=== PATIENT | female | born 1940 | race Caucasian/White ===

== ENCOUNTER 2016-09-29 03:06 | Inpatient (IN) ==
--- NOTE | 2016-09-24 11:16 | EKG Report ---
Test Performed on : 09/24/2016 11:08:16 AM Test Reason : ORDER Blood Pressure : / mmHG Vent. Rate : 070 BPM Atrial Rate : 070 BPM P-R Int : 186 ms QRS Dur : 098 ms QT Int : 400 ms P-R-T Axes : 025 021 030 degrees QTc Int : 432 ms Normal sinus rhythm. Normal ECG No previous ECGs available Confirmed by Jae Honeycutt MD ([id number]) on 09/24/2016 2:56:47 PM
[2016-09-24 11:48] LABS: MANUAL DIFF NEEDED? NO; URINE MICRO REVIEW NEEDED? NO; URINE SOURCE CLEAN CATCH
[2016-09-24 12:02] LABS: BASO% 0.1 % (0.0-0.8); EOS# 0.07 X1000 (0.0-0.7); HEMATOCRIT 39.5 % (37.0-47.0); HEMOGLOBIN 13.5 g/dL (12.0-16.0); IMM GRAN# 0.02 X1000 (0.0-0.04); IMM GRAN% 0.3 % (0.0-0.5); LYMPH# 2.69 X1000 (1.2-3.4); LYMPH% 40.2 % (20.5-51.1); MCHC 34.2 g/dL (33-37); MCV 102.3 FL (81-99); MPV 11.9 FL (7.4-10.4); NEUT% 52.4 % (42.2-75.2); PLT 175 X1000 (130-400); RBC 3.86 XMIL (4.2-5.4)
[2016-09-24 12:18] LABS: INR 1.03; PROTIME 10.8 Seconds (9.2-11.7); PTT 27.1 Seconds (22.0-36.0)
[2016-09-24 12:23] LABS: BILIRUBIN URINE NEGATIVE (NEGATIVE); BLOOD URINE NEGATIVE (NEGATIVE); COLOR YELLOW; GLUCOSE URINE NEGATIVE (NEGATIVE); LEUKOCYTES URINE SMALL (NEGATIVE); NITRITE URINE NEGATIVE (NEGATIVE); PH URINE 5.5; PROTEIN URINE TRACE mg/dL (NEGATIVE); SP GRAVITY URINE 1.022; TURBIDITY URINE CLEAR (CLEAR); UROBILINOGEN URINE NORMAL (NORMAL)
[2016-09-24 12:25] LABS: UR EPITHELIAL CELLS <10 /HPF (<10); URINE BACTERIA 2+ /HPF; URINE RBC <10 /HPF (<10)
[2016-09-24 12:45] LABS: AGAP 13; BUN 12 mg/dL (8-22); CALCIUM 9.6 mg/dL (8.8-10.2); CHLORIDE 104 mmol/L (98-107); COSMO 291; POTASSIUM 3.6 mmol/L (3.5-5.1); SODIUM 145 mmol/L (136-145); TCO2 28 mmol/L (25-35)
[2016-09-29] MEDS ORDERED: PEPCID ONE (10:20)
[2016-09-29] MEDS ORDERED: COLACE ONE (10:20)
[2016-09-29] MEDS ORDERED: REGLAN ONE (10:20)
[2016-09-29] MEDS ORDERED: LYRICA ONE (10:20)
[2016-09-29] MEDS ORDERED: LR 1,000 ML ONE (10:20)
[2016-09-29] MEDS ORDERED: CELEBREX ONE (10:20)
[2016-09-29] MEDS ORDERED: KEFZOL 2 GM/D5W 2 GM/50 ML IVPB ONE (10:20)
[2016-09-29] MEDS ORDERED: DIPRIVAN 1% ONE ×2 (12:04→14:11)
[2016-09-29] MEDS ORDERED: FENTANYL ONE (12:04)
[2016-09-29] MEDS ORDERED: VERSED ONE (12:04)
[2016-09-29] MEDS ORDERED: VANCOMYCIN ONE (12:33)
[2016-09-29] MEDS ORDERED: TORADOL ONE (12:33)
[2016-09-29] MEDS ORDERED: SODIUM CHLORIDE 0.9% ONE (12:34)
[2016-09-29] MEDS ORDERED: MARCAINE 0.25% PF/EPI 1:200,000 ONE (12:34)
[2016-09-29] MEDS ORDERED: CYKLOKAPRON 1,000 MG/NS 1,000 MG/100 ML IVPB ONE ×2 (12:34→14:26)
[2016-09-29] MEDS ORDERED: NEOSPORIN G.U. IRRIGANT ONE (12:38)
[2016-09-29] MEDS ORDERED: EXPAREL 1.3% ONE (12:38)
[2016-09-29] MEDS ORDERED: EPHEDRINE ONE (13:07)
[2016-09-29] MEDS ORDERED: ZOFRAN ONE (13:14)
[2016-09-29] MEDS ORDERED: DECADRON ONE ×2 (13:14→13:18)
[2016-09-29] MEDS ORDERED: OFIRMEV 1000 MG/ISOTONIC SOLN 1,000 MG/100 ML BOTTLE ONE (13:14)
[2016-09-29 13:42] LABS: URINE MICRO REVIEW NEEDED? NO; URINE SOURCE CATH
[2016-09-29 15:26] LABS: BILIRUBIN URINE NEGATIVE (NEGATIVE); COLOR YELLOW; GLUCOSE URINE NEGATIVE (NEGATIVE); TURBIDITY URINE CLEAR (CLEAR)
[2016-09-29 15:27] LABS: BLOOD URINE NEGATIVE (NEGATIVE); PROTEIN URINE NEGATIVE (NEGATIVE); SP GRAVITY URINE > 1.030; UROBILINOGEN URINE NORMAL (NORMAL)
[2016-09-29 15:28] LABS: LEUKOCYTES URINE NEGATIVE (NEGATIVE); NITRITE URINE NEGATIVE (NEGATIVE)
[2016-09-29 15:31] LABS: UR EPITHELIAL CELLS <10 /HPF (<10); URINE BACTERIA 1+ /HPF; URINE RBC <10 /HPF (<10); URINE WBC <10 /HPF (<10)
--- NOTE | 2016-09-29 15:49 | OPERATIVE NOTE ---
PROCEDURE DATE: 09/29/2016 PREOPERATIVE DIAGNOSIS: Left knee degenerative joint disease. POSTOPERATIVE DIAGNOSIS: Left knee degenerative joint disease. PROCEDURE: Left total knee arthroplasty using [facility] size 7 femoral component, a size 6 tibial base plate, a 12 mm articular insert, and a 35 mm patellar component. ANESTHESIA: Spinal. SURGEON: Dhruv Muñiz MD CONTACT CENTER ASSISTANT: IAN Miner SECOND CONTACT CENTER ASSISTANT: Tabitha Hart PA-C COMPLICATIONS: None. BLOOD LOSS: Minimal. DRAINS: Hemovac x1. TOURNIQUET TIME: Approximately an hour half. DESCRIPTION OF PROCEDURE: The patient was brought to the operative suite and placed in supine position. After successful administration of general anesthesia, a well-padded tourniquet was placed on the left proximal thigh. The left lower extremity was prepped and draped in the usual sterile fashion. The leg was exsanguinated. Tourniquet insufflated to 350 torr. A longitudinal incision was made beginning at the superior pole of the patella and extended distally to the tibia tuberosity. It was dissected sharply through the skin. Full-thickness skin flaps were elevated medially and laterally. A medial arthrotomy was made with a vastus snip. The medial capsule was elevated off the medial tibial plateau. The prepatellar fat pad, ACL, PCL, medial meniscus, and lateral meniscus were excised. A drill was entered in the center of the distal femur. An intramedullary guide was placed, distal cutting block was pinned into place. The distal cut was made an oscillating saw. The femur was sized to size 7, a size 7 cutting block was pinned into place and the anterior cuts, chamfer cuts, and posterior condylar cuts were made with the oscillating saw. The marginal osteophytes were removed with rongeur. A box cutting block was pinned into place. A box cut was made a box osteotome and oscillating saw. Posterior condyle osteophytes removed with a curved osteotome and rongeur. Attention was then directed to the tibia. A drill was entered in the center of the tibia. An intramedullary guide was placed. Alignment was checked with a drop danya, referencing off the anterior cortex of the tibia and the second ray of the foot, and taking 4 mm off the low side of the tibia, which in this case, was medially. The tibial cutting block was pinned into place and the articular surface of the tibial plateau was removed with an oscillating saw. The flexion-extension gaps were checked and balanced at 12 mm. She was tight medially and a medial release was performed and then it was balanced well a 12 mm in flexion and extension. The tibia sized to size 6, a size 6 guide was used for the fin punch. The tibial trial, femoral trial, and 12 mm articular insert were placed, taken through range of motion found to have excellent alignment, balancing, and range of motion. Attention was directed to the patella and 9 mm of the articular surface of patella removed with oscillating saw. The patella sized to a size 35. A size 35 guide was used to drill peg holes. The lateral facet was chamfered 30-45 degrees. Patella trial was placed, taken through range of motion found to have excellent patella tracking. All trials were then removed. The knee was copiously irrigated and dried, being certain all bone debris was removed. The tibial component, femoral component, and patellar component were cemented into place, excess cement being removed with a [place]. Once the cement had hardened, excess cement was again removed with an osteotome. The knee was again copiously irrigated and dried, being certain all bone and cement debris were removed. The trial articular insert was removed. The knee was copiously infiltrated with Exparel, including posterior capsule, anterior capsule, medial and lateral collateral ligaments, anterior musculature, and subcutaneous tissue. A drain was placed exiting superior laterally and buried in the lateral gutter and then the definitive articular insert was locked into place. The knee was again taken through range of motion. Again, found to have excellent alignment, balancing, range of motion, and patellar tracking. The medial arthrotomy was closed with running 0 V-Loc suture. The skin edge approximated with 2-0 Vicryl and then 4-0 Monocryl and Dermabond. A sterile dressing was applied. The patient tolerated the procedure well without complication. At the end of the procedure, all counts correct x2. The patient was transferred to the recovery room in stable condition. cc: Dhruv Muñiz MD
[2016-09-29] MEDS ORDERED: NS 1,000 ML ONE (15:58)
[2016-09-29] MEDS: NS 1,000 ML IV SCH (17:11)
[2016-09-29] MEDS ORDERED: ZOFRAN IV PRN (17:30)
[2016-09-29] MEDS: TYLENOL PO SCH (18:38)
[2016-09-29] MEDS: ULTRAM PO SCH (18:38)
[2016-09-29] MEDS: PERIDEX MT SCH (22:03)
[2016-09-29] MEDS: LYRICA PO SCH (22:03)
[2016-09-29] MEDS: KEFZOL 2 GM/D5W 2 GM/50 ML IVPB IV SCH (22:03)
[2016-09-29] MEDS: COLACE PO SCH (22:04)
[2016-09-29] MEDS: CELEBREX PO SCH (22:04)
[2016-09-30] MEDS: ULTRAM PO SCH ×5 (00:45→23:34)
[2016-09-30] MEDS: TYLENOL PO SCH ×5 (00:45→23:34)
[2016-09-30] MEDS: KEFZOL 2 GM/D5W 2 GM/50 ML IVPB IV SCH (05:15)
[2016-09-30] MEDS: XARELTO PO SCH (05:16)
[2016-09-30] MEDS: NS 1,000 ML IV SCH (05:16)
[2016-09-30 06:14] LABS: HEMATOCRIT 32.1 % (37.0-47.0)
[2016-09-30 06:31] LABS: AGAP 11; BUN 9 mg/dL (8-22); CALCIUM 8.6 mg/dL (8.8-10.2); CHLORIDE 105 mmol/L (98-107); COSMO 283; SODIUM 141 mmol/L (136-145); TCO2 25 mmol/L (25-35)
[2016-09-30] MEDS ORDERED: DECADRON IV ONE (09:00)
--- NOTE | 2016-09-30 09:01 | PROGRESS NOTE ---
DATE: 09/30/2016 SUBJECTIVE: Ms. Pate is a 76-year-old female who is postoperative day 1 from a left total knee arthroplasty. She has no new complaints and her vital signs are stable. OBJECTIVE: General: She is a well-developed, well-nourished female. She is alert, oriented, and cooperative with the examination. Vital Signs: Stable. She is afebrile. Skin: Her dressing is clean, dry, and intact without sign of any drainage. Extremities: Her leg is neurovascularly intact. Her calf is soft. She has intact sensation to light touch. Laboratory Data: Her hemoglobin is 11 and her hematocrit is 32.1. She had 140 mL of drainage from her Hemovac. ASSESSMENT: Stable left total knee arthroplasty. PLAN: We plan on beginning physical therapy with her today. We will have her transferred to rehab later this week. Dictated by IAN Rivera for Dhruv Muñiz MD cc: IAN Rivera MD
[2016-09-30] MEDS: LYRICA PO SCH ×2 (09:54→21:55)
[2016-09-30] MEDS: PERIDEX MT SCH ×2 (09:54→21:55)
[2016-09-30] MEDS: CELEBREX PO SCH ×2 (09:54→21:55)
[2016-09-30] MEDS: PEPCID PO SCH (09:54)
[2016-09-30] MEDS: COLACE PO SCH ×2 (09:54→21:55)
[2016-09-30] MEDS: OXY IR PO PRN (21:56)
[2016-09-30] MEDS: AMBIEN PO PRN (21:56)
[2016-10-01] MEDS: TYLENOL PO SCH ×3 (05:11→17:28)
[2016-10-01] MEDS: XARELTO PO SCH (05:11)
[2016-10-01] MEDS: ULTRAM PO SCH ×3 (05:11→17:28)
[2016-10-01 06:25] LABS: HEMATOCRIT 23.8 % (37.0-47.0); HEMOGLOBIN 8.1 g/dL (12.0-16.0)
[2016-10-01] MEDS: COLACE PO SCH ×2 (08:27→21:38)
[2016-10-01] MEDS: CELEBREX PO SCH ×2 (08:27→21:38)
[2016-10-01] MEDS: PERIDEX MT SCH ×2 (08:27→21:43)
[2016-10-01] MEDS: LYRICA PO SCH ×2 (08:27→21:38)
[2016-10-01] MEDS: PEPCID PO SCH (08:27)
--- NOTE | 2016-10-01 10:15 | PROGRESS NOTE ---
DATE: 10/01/2016 SUBJECTIVE: Kendra Pate is a 76-year-old female, who is postoperative day 2 from a left total knee arthroplasty. She has no complaints. OBJECTIVE: She is a well-developed, well-nourished female. She is alert, oriented, and cooperative on exam. OBJECTIVE: Her wound is clean, dry, intact without sign of infection. Her leg is neurovascularly intact. Her hematocrit is 23.8%. Her hemoglobin is 8.1. ASSESSMENT: Left total knee arthroplasty with acute blood loss anemia. PLAN: We will transfuse her 2 units. We will plan on her going to rehab tomorrow. She will continue her physical therapy. cc: Dhruv Muñiz MD
[2016-10-01] MEDS ORDERED: NS 500 ML ONE (11:15)
--- NOTE | 2016-10-01 11:27 | Diag Imaging Result Doc PS360 ---
EXAM: CHEST-PORTABLE HISTORY: rehab placement TECHNIQUE: Portable upright AP COMPARISON: 02/19/2016 FINDINGS: The lungs are well expanded. The heart is not enlarged. The vessels are not distended. No pneumonia. No pleural effusions identified. IMPRESSION: Negative chest. Electronically signed by Tanner Anne 10/01/2016 11:25 AM
[2016-10-01] MEDS: MILK OF MAGNESIA PO PRN (14:42)
[2016-10-01] MEDS: OXY IR PO PRN (21:38)
[2016-10-01] MEDS: AMBIEN PO PRN (21:42)
[2016-10-02] MEDS ORDERED: BENADRYL PO PRN (00:53)
[2016-10-02] MEDS: ULTRAM PO SCH ×3 (01:08→11:52)
[2016-10-02] MEDS: TYLENOL PO SCH ×3 (01:08→11:51)
[2016-10-02] MEDS ORDERED: DULCOLAX PR PRN (06:16)
[2016-10-02 06:21] LABS: HEMATOCRIT 27.4 % (37.0-47.0); HEMOGLOBIN 9.1 g/dL (12.0-16.0)
[2016-10-02] MEDS: XARELTO PO SCH (06:25)
[2016-10-02] MEDS: MILK OF MAGNESIA PO PRN (06:26)
--- NOTE | 2016-10-02 07:23 | DISCHARGE SUMMARY ---
ADMISSION DATE: 09/29/2016 DISCHARGE DATE: 10/02/2016 DISCHARGE DIAGNOSES: 1. Left knee degenerative joint disease status post left total knee arthroplasty. 2. Acute blood loss anemia treated with transfusion. DISCHARGE MEDICATIONS: See discharge medication list. DISPOSITION: Patient discharged to rehab with instructions for total knee arthroplasty protocol. Instructed return to see Dr. Muñiz on 09/20/2016. HOSPITAL COURSE: On day of admission, the patient underwent a left total knee arthroplasty. Her postoperative course was complicated by acute blood loss anemia treated with transfusion. At discharge, she is afebrile tolerating a regular diet, ambulating well with physical therapy. Her wound is clean, dry, intact without sign of infection deep venous thrombosis. She is discharged to rehab in stable condition with instructions to follow up as described above. cc: Dhruv Muñiz MD
[2016-10-02] MEDS: PEPCID PO SCH (09:39)
[2016-10-02] MEDS: COLACE PO SCH (09:42)
[2016-10-02] MEDS: CELEBREX PO SCH (09:42)
[2016-10-02] MEDS: LYRICA PO SCH (09:42)
[2016-10-02] MEDS: OXY IR PO PRN (09:42)
[2016-10-02] MEDS: PERIDEX MT SCH (09:43)
--- NOTE | 2016-10-02 11:46 | DISCHARGE SUMMARY ---
ADMISSION DATE: 09/29/2016 DISCHARGE DATE: DISCHARGE DIAGNOSIS: Left knee degenerative joint disease, status post left total knee arthroplasty. DISCHARGE MEDICATIONS: See discharge medication list. DISPOSITION: The patient is discharged to rehab. DISCHARGE INSTRUCTIONS: Instructions for total knee arthroplasty protocol. Instructed to return to see Dr. Muñiz next . HOSPITAL COURSE: On the day of admission, patient underwent a left total knee arthroplasty. Her postoperative course was unremarkable. At discharge, she is afebrile, tolerating regular diet, ambulating well with physical therapy. Her wound is clean, dry, and intact without sign of infection. Her calf is soft. Her leg is neurovascularly intact. Her hemoglobin is 9.1, her hematocrit is 27.4. She is discharged to rehab in stable condition with instructions to followup as described above. Dictated by IAN Rivera for Dhruv Muñiz MD cc: IAN Rivera MD
[2016-10-02 13:19] VITALS: BP 128/52
== END 2016-10-02 14:26 ==
LOC: SURHOLD 03:06 → 4N 15:47
PROVIDERS: ADMIT Orthopaedic Surgery; ATTEND Orthopaedic Surgery

== ENCOUNTER 2016-10-08 15:56 | Inpatient (IN) ==
--- NOTE | 2016-10-08 17:04 | PROVIDER DOCUMENTATION ---
HPI-Abdominal Pain/GI Problem - General Chief Complaint: Abnormal Lab[s] Stated Complaint: "LOW PLATELETS" Time Seen by Provider: 10/08/16 16:30 Source: patient Allergies/Adverse Reactions: Patient Allergies Allergy/AdvReac Type Severity Reaction Status Date / Time morphine Allergy ITCHING Verified 10/08/16 17:13 Home Medications: Home Medication List Medication Instructions Recorded Confirmed Last Taken Type Acetaminophen [Tylenol] 1,000 mg PO Q6H tablet 10/01/16 10/08/16 Unknown Rx Celecoxib [Celebrex] 200 mg PO BID capsule 10/01/16 10/08/16 10/07/16 08:00 Rx Docusate Sodium [Colace] 100 mg PO BID capsule 10/01/16 10/08/16 10/07/16 08: 00 Rx Famotidine [Pepcid] 20 mg PO DAILY tablet 10/01/16 10/08/16 10/07/16 08:00 Rx Magnesium Hydroxide [Milk of 30 ml PO Q6H PRN PRN #0 udc 10/01/16 10/08/1610/07 08:00 Rx Magnesia] Oxycodone I.r. [Oxy Ir] 5 - 10 mg PO Q3H PRN PRN #60 10/01/16 10/08/16 10/07/16 08:00 Rx capsule Pregabalin [Lyrica] 75 mg PO BID #60 capsule 10/01/16 10/08/16 10/07/16 08:00 Rx Rivaroxaban [Xarelto] 10 mg PO Q24H tablet 10/01/16 10/08/16 10/07/16 08:00 Rx Tramadol [Ultram] 100 mg PO Q6H #120 tablet 10/01/16 10/08/16 10/07/16 08:00 Rx Zolpidem [Ambien] 5 mg PO HS PRN PRN #30 tablet 10/01/16 10/08/16 Unknown Rx Hydrocodone Bit/Acetaminophen 1 each PO TID PRN #8 tablet 10/07/16 10/08/16 Unknown Rx [Hydrocodon-Acetaminoph 7.5-325] Hyoscyamine [Levsin] 0.125 mg PO TID PRN #10 tablet 10/07/16 10/08/16 Unknown Rx Ondansetron HCl [Zofran] 4 mg PO PRN PRN 10/07/16 10/08/16 Unknown History Ondansetron HCl [Zofran] 4 mg PO RTQ8H PRN #8 tablet 10/07/16 10/08/16 Unknown Rx Sulfamethoxazole/Trimethoprim 1 each PO BID #14 tablet 10/07/16 10/08/16 Unknown Rx [Bactrim 400-80 mg Tablet] - History of Present Illness-ABD Nature of Presenting Problems: 76yof presents to the ED stating she was referred by her PCP Dr. Hoffman due to low platelets for further eval in ED today. She states she had a knee replacement [address] Muñiz[address] She also reports she has experienced LUQ abd pain since her surgery, for which she was evaluated yesterday in the ED by Dr. Tatyana Sainz and subsequently had a negative CT Abd/Pelvis. Pt is accompanied to clinic today per her son. Abdominal Pain Onset Location: reports: LUQ Pain Radiation: reports: no radiation Quality of Pain: reports: aching Severity in ED: reports: mild Onset/Duration: reports: 1 week ago Timing: reports: still present Activities at Onset: reports: none Exposure to sick contacts?: No Modifying Factors: improves with: nothing Associated Symptoms: reports: nausea Last BM: unsure Dark Stools Present?: reports: none noticed Rectal Bleeding: reports: none Rectal Pain: reports: none Emesis Description: reports: none Bruising or Bleeding Gums?: No Similar Symptoms Previously?: Yes (x1 week continuous LUQ abd pain.) Recently seen or treated by another doctor?: Yes (ED yesterday.) Review of Systems - Adult - REVIEW OF SYSTEMS - ADULT ROS:: unobtainable per condition Constitutional: reports: no symptoms reported Eyes: reports: no symptoms reported Ears, Nose, Mouth & Throat: reports: no symptoms reported Cardiovascular: reports: no symptoms reported Respiratory: reports: no symptoms reported Gastrointestinal: reports: abdominal pain, nausea Genitourinary: reports: no symptoms reported Musculoskeletal: reports: no symptoms reported Integumentary: reports: no symptoms reported Neurological: reports: no symptoms reported Psychiatric: reports: no symptoms reported Endocrine: reports: no symptoms reported Hematologic/Lymphatic: reports: other (abnormal platelet count as per PCP) All Other Systems: Reviewed and Negative Past History - Adult - PAST MEDICAL HISTORY-ADULT Review of Records: reports: Old Records Reviewed, Nursing Assessment Review, Medications Reviewed, Social history reviewed & non-contributory. Respiratory: reports: sleep apnea Musculoskeletal: reports: arthritis - PRIOR SURGERIES/PROCEDURES Surgical/Procedure History: reports: hysterectomy, BTL, orthopedic (extremity) ( TKA) - IMMUNIZATION STATUS Childhood Immunizations: See Nurse Assessment Flu Vaccine: See Nurse Assessment - FAMILY HISTORY Family History: reviewed, not pertinent Physical Exam-General - PHYSICAL EXAM-ADULT Initial Vital Signs Reviewed: Yes - CONSTITUTIONAL General Appearance: appears well, alert, no apparent distress - EYES Eyes: PERRL/EOMI, pink conjunctivae - HEAD, EARS, NOSE, MOUTH & THROAT HENMT: normocephalic/atraumatic, moist mucous membranes, normal ENT inspection, TMs normal, pharynx normal - NECK Neck: non-tender, full range of motion - RESPIRATORY Respiratory: chest non-tender, lungs clear, normal breath sounds - CARDIOVASCULAR Cardiovascular: normal peripheral pulses, regular rate, rhythm, no edema, no gallop, no JVD, no murmur - GASTROINTESTINAL (ABDOMEN) Abdominal Exam: normal bowel sounds, non tender, soft, no organomegaly - LYMPHATIC Lymphatic: no adenopathy - MUSCULOSKELETAL Back Exam: normal inspection, no CVA tenderness, no vertebral tenderness Extremity: normal range of motion, non-tender, normal gait, normal inspection, no pedal edema - SKIN Integumentary: normal color, normal turgor, warm/dry, other (nonspecific ecchymosis to left anterior knee with intact stapled wound without DC/wound erythema/enduration/warmth) - NEUROLOGIC Neurologic: elevator adjuster II-XII nml as tested, grossly normal, no motor/sensory deficits - PSYCHIATRIC Psych/Mental Status: normal mood/affect, normal thought content, normal thought process, oriented x 3 Progress - PLAN OF CARE/RESULTS Progress/Plan/Lab Results: Vital Signs - 8 hr 10/08/16 16:14 Temperature 98.2 F Pulse Rate 74 Respiratory Rate 20 Blood Pressure 174/59 O2 Sat by Pulse Oximetry 100 Orders Category Date Time Status Saline Loc NOW Care 10/08/16 16:30 Active US ABDOMEN-COMPLETE [US] Stat Exams 10/08/16 16:54 Ordered AMYLASE [CHEM] Stat Lab 10/08/16 16:54 Uncollected CBC WITH DIFF [HEME] Stat Lab 10/08/16 16:54 Ordered COMPREHENSIVE METABOLIC PANEL [CHEM] Stat Lab 10/08/16 16:54 Ordered LIPASE [CHEM] Stat Lab 10/08/16 16:54 Uncollected PROTIME WITH INR [COAG] Stat Lab 10/08/16 16:54 Ordered PTT [COAG] Stat Lab 10/08/16 16:54 Ordered TYPE & SCREEN [BBK] Stat Lab 10/08/16 16:54 Ordered Result Diagrams: 10/08/16 16:43 10/08/16 16:43 - REASSESSMENT Reassessment #1 Time Reassessed: 17:47 (Awaiting US results.) Reassessment #2 Time Reassessed: 17:56 (Discussed pt with Dr. Sainz, he recommends admit to hospitalist service. Today's Plt 20k as compared to 88k yesterday.) Status: unchanged Reassessment #3 Time Reassessed: 18:12 (Spoke with Dr. Jacques, he accepts patient for admit.) Status: unchanged Departure - Departure Date of Disposition Decision: 10/08/16 Time of Disposition Decision: 18:13 DIAGNOSIS: Temporary low platelet count, Splenomegaly Abdominal pain Qualifiers: Abdominal location: left upper quadrant Qualified Code(s): R10.12 - Left upper quadrant pain Disposition: ADMITTED INPATIENT 09 Certified Medical Emergency: Emergent Condition: Stable Referrals and Follow-Ups: Nona Hoffman MD [Primary Care Provider] - - Critical Care Note This patient required my direct & personal management of CC.: No Comments: Patient care in the ED supervised by Dr. Tatyana Sainz. He is aware of patient and recommends admit. He did not have a face to face exam with pt today, although he did see her yesterday. Attestation - Physician/ MARCIO Attestation Patient care was provided by Advanced Practice Provider:: Yes Advanced Practice Provider:: Katrina Razo Advanced Practice Provider documentation review:: The Mid-level provider documentation, treatment plan and medical decision making was reviewed by the physician who agrees with all treatment and medical decision making by the MLP.
[2016-10-08 17:31] LABS: BASO% 0.4 % (0.0-0.8); EOS# 0.09 X1000 (0.0-0.7); EOS% 0.8 % (0.0-10.0); HEMATOCRIT 27.2 % (37.0-47.0); HEMOGLOBIN 8.8 g/dL (12.0-16.0); IMM GRAN# 0.16 X1000 (0.0-0.04); IMM GRAN% 1.4 % (0.0-0.5); MCH 34.2 PG (27-31); MCHC 32.4 g/dL (33-37); MCV 105.8 FL (81-99); MONO% 8.9 % (1.7-9.3); NEUT% 72.5 % (42.2-75.2); PLT 20 X1000 (130-400); RBC 2.57 XMIL (4.2-5.4)
[2016-10-08 17:44] LABS: INR 1.13; PTT 32.1 Seconds (22.0-36.0)
[2016-10-08 17:50] LABS: AGAP 12; ALBUMIN 4.1 g/dL (3.5-5.0); ALKALINE PHOSPHATASE 105 U/L (32-104); BUN 18 mg/dL (8-22); CALCIUM 9.2 mg/dL (8.8-10.2); CHLORIDE 98 mmol/L (98-107); COSMO 279; GOT 44 U/L (10-30); GPT 22 U/L (10-36); POTASSIUM 3.6 mmol/L (3.5-5.1); SODIUM 138 mmol/L (136-145); TCO2 28 mmol/L (25-35); TOTAL PROTEIN 7.2 g/dL (6.3-8.3)
--- NOTE | 2016-10-08 17:57 | Diag Imaging Result Doc PS360 ---
US ABDOMEN-COMPLETE - 10/08/2016 INDICATION: LUQ abdomen pain, eval for cholecystitis COMPARISON: CT from 10/07/2016 FINDINGS: The liver is mildly fatty. The spleen is enlarged. The spleen measures 14.5 x 14.4 x 4.8 cm. The gallbladder, pancreas, and both kidneys are normal. Common bile duct measures 5 mm. Aorta, IVC, and main portal vein are patent. IMPRESSION: Fatty liver. Mild splenomegaly. No acute disease. Electronically signed by Jayant Whitfield 10/08/2016 5:54 PM
[2016-10-08 18:24] LABS: AMYLASE 70 U/L (20-200); LIPASE 66 U/L (13-60)
[2016-10-08] MEDS ORDERED: DILAUDID IV ONE (18:58)
[2016-10-08] MEDS ORDERED: MILK OF MAGNESIA PO PRN (19:46)
[2016-10-08] MEDS ORDERED: ULTRAM PO PRN (19:46)
[2016-10-08] MEDS ORDERED: AMBIEN PO PRN (19:46)
[2016-10-08] MEDS ORDERED: ZOFRAN IV PRN (19:46)
[2016-10-08] MEDS ORDERED: NS 1,000 ML IV ONE (19:46)
--- NOTE | 2016-10-08 19:54 | HISTORY AND PHYSICAL ---
CHIEF COMPLAINT: Abdominal pain. HISTORY OF PRESENT ILLNESS: She has presented to the ER now twice for the same complaint. She had a very large workup, including abdominal CT and lower extremity Doppler and everything was negative. She has severe complaints of upper abdominal pain, right and left side which has been unrelenting for the last couple of days. No bowel issues as far as diarrhea, constipation. There has been no bleeding. Other things of note, she had a right knee surgery per Dr. Muñiz. This was on the . Left knee arthroplasty. She has developed some postop bleeding, reportedly got 2 units of blood while she was here. Her platelet count when she left was normal on admission, 175,000 when she came in and then when it was checked on the which was yesterday, it was down to 88,000 and then it has come down to 20,000 today. There has been no active bleeding in the sense of bowel bleeding, but she has got significant hematoma in her left leg. She was seen by Dr. Hook today and taken off her Xarelto, but came in for persistent abdominal pain. She seems comfortable now. We gave her some Dilaudid. She seems to be somewhat relaxed, but she has got significant hematoma and subcutaneous hematoma in her left leg extending from her knee all the way down to her foot. She has a little bit area of oozing around her patellar area. She was admitted for the abdominal pain, workup and then her progressive thrombocytopenia. PAST MEDICAL HISTORY: Hypertension, osteoarthritis, irritable bowel syndrome. PAST SURGICAL HISTORY: She has had , partial hysterectomy. SOCIAL HISTORY: No tobacco or ethanol. ALLERGIES: She is allergic to morphine. REVIEW OF SYSTEMS: Ten systems reviewed and was otherwise negative. FAMILY HISTORY: Reviewed and noncontributory. PHYSICAL EXAMINATION: VITAL SIGNS: Blood pressure 171/85, heart rate of 86, respiratory rate 18, temperature 97.9 degrees, 93% on room air. GENERAL: A well-developed female, in no acute distress. HEAD: Normocephalic, atraumatic. EYES: Pupils equal, round, reactive to light. Extraocular movements were intact. EAR/NOSE/THROAT: She had moist mucous membranes. NECK: Supple. CARDIOVASCULAR: Regular rate and rhythm. No murmurs, gallops, or rubs. PULMONARY: Exam bilateral breath sounds. Clear to auscultation. GI: Soft, some mild tenderness in her upper quadrants. Nondistended. Bowel sounds are positive. EXTREMITIES: No clubbing or cyanosis. LYMPHATIC: She had bilateral nonpitting edema, worse in her left leg. NEUROLOGIC: Nonfocal. MUSCULOSKELETAL: 4/5 in all 4 extremities. LABORATORY DATA: Again, her platelet count is now 20,000 and was normal preop. T bilirubin somewhat elevated at 2.1. Hemoglobin and hematocrit has dropped to 8 and 27 which is a drop from 9 and 27 on admission. Chemistries were okay again except for the 2.4. Her lipase was up a little bit today, 66. Her abdominal ultrasound from today just showed splenomegaly, fatty liver, otherwise negative. Her CT scan from yesterday showed fatty liver, otherwise really unremarkable. It was done with IV contrast only. Venous ultrasound was negative for DVT. ASSESSMENT: 1. This is a 76-year-old female, who has large postop bleeding episode in her leg. She has been on anticoagulation. 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 She does have a component of hemolysis it looks like so thrombotic thrombocytopenic purpura is a possibility as well, although there is no fever or altered mental status or kidney dysfunction at this point. I am sure she was likely exposed to some heparin during her last admission with her surgery, so heparin-induced thrombocytopenia is a possibility as well. We will do screening tests for above process. I am going to go ahead and consult Dr. Castro, the windscreen fitter/oncologist. 2. Abdominal pain. It is a little unclear. I am suspicious her splenomegaly is causing her abdominal pain because of her consumptive thrombocytopenia process. We will get Gastroenterology input. Obviously they are not going to be able to do any endoscopy until her platelet count stabilizes. Additionally, we will need to get Gastroenterology involved. We will continue proton pump inhibitor. 3. Recent total knee arthroplasty with postop bleeding. We will have Orthopedics follow along, although again, I think Dr. Hook saw her today and just recommended monitoring for the time being. cc: MD Nona Whiting MD
[2016-10-08 22:16] LABS: DIRECT BILIRUBIN 0.7 mg/dL (0.00-0.20)
[2016-10-08] MEDS: LYRICA PO SCH (22:41)
[2016-10-08] MEDS: COLACE PO SCH (22:41)
[2016-10-08] MEDS: DILAUDID IV PRN (22:42)
[2016-10-08 23:18] LABS: MANUAL DIFF NEEDED? YES
[2016-10-08 23:46] LABS: BANDS 1 % (0-1); EOS 1 % (1-10); LYMPHS 16 % (21-51); MONO 9 % (1-9)
[2016-10-09] MEDS: DILAUDID IV PRN ×6 (02:37→19:43)
[2016-10-09 06:48] LABS: HEMATOCRIT 27.6 % (37.0-47.0); HEMOGLOBIN 8.8 g/dL (12.0-16.0); MCH 33.8 PG (27-31); MCHC 31.9 g/dL (33-37); MCV 106.2 FL (81-99); MPV 11.8 FL (7.4-10.4); RBC 2.6 XMIL (4.2-5.4)
[2016-10-09 07:13] LABS: AGAP 8; BUN 15 mg/dL (8-22); CALCIUM 9.1 mg/dL (8.8-10.2); CHLORIDE 100 mmol/L (98-107); COSMO 276; POTASSIUM 4.1 mmol/L (3.5-5.1); SODIUM 137 mmol/L (136-145); TCO2 29 mmol/L (25-35)
[2016-10-09] MEDS: LYRICA PO SCH ×2 (08:59→20:39)
[2016-10-09] MEDS: COLACE PO SCH ×2 (08:59→20:39)
[2016-10-09] MEDS ORDERED: MIRALAX PO SCH (09:30)
[2016-10-09] MEDS ORDERED: PROTONIX IV SCH (09:30)
[2016-10-09] MEDS: NORCO-7.5 PO PRN (10:34)
[2016-10-09] MEDS: SODIUM CHLORIDE 0.9% INJ SCH ×2 (10:35→20:40)
[2016-10-09] MEDS ORDERED: FOLIC ACID PO SCH (12:15)
[2016-10-09] MEDS ORDERED: DECADRON IV ONE (12:19)
[2016-10-09 12:38] LABS: FLOW CYTOMETERY SOURCE WHOLE BLOOD; LEUKEMIA LYMPHOMA BY FLOW REFERRED FOR TESTING
[2016-10-09 12:45] LABS: RETIC% 4.94 % (0.8-2.1); RETIC-HE 35.1 PG (28.2-36.6)
[2016-10-09 12:48] LABS: BASO% 0.4 % (0.0-0.8); EOS# 0.06 X1000 (0.0-0.7); EOS% 0.5 % (0.0-10.0); HEMATOCRIT 25.5 % (37.0-47.0); HEMOGLOBIN 8.2 g/dL (12.0-16.0); IMM GRAN% 0.9 % (0.0-0.5); LYMPH# 1.58 X1000 (1.2-3.4); LYMPH% 14.5 % (20.5-51.1); MANUAL DIFF NEEDED? YES; MCH 34.2 PG (27-31); MCHC 32.2 g/dL (33-37); MCV 106.3 FL (81-99); MONO# 0.89 X1000 (0.11-0.59); MONO% 8.2 % (1.7-9.3); MPV 11.2 FL (7.4-10.4); NEUT% 75.5 % (42.2-75.2)
[2016-10-09 12:53] LABS: PLT 35 X1000 (130-400)
[2016-10-09] MEDS ORDERED: GLYCERIN ADULT PR ONE (12:57)
[2016-10-09 12:58] LABS: LYMPHS 17 % (21-51); MONO 11 % (1-9)
[2016-10-09] MEDS ORDERED: SODIUM CHLORIDE 0.9% INJ SCH (13:00)
[2016-10-09] MEDS ORDERED: PEPCID IV SCH (13:00)
--- NOTE | 2016-10-09 13:03 | CONSULTATION ---
DATE OF CONSULTATION: 10/09/2016 REQUESTING PHYSICIAN: Dr. Merlin Jacques. REASON FOR CONSULTATION: Thrombocytopenia. HISTORY OF PRESENT ILLNESS: Ms. Pate is a 76-year-old, female, who presented to [facility] ER complaining of upper abdominal pain. This is the second time the patient had presented with the same complaint. She is status post left TKA on 09/29/2016. She did have Xarelto in the postoperative setting as prophylaxis against DVT. There are also reports that she had some postop bleeding and required 2 units of packed red blood cells while recovering from her TKA. Prior to her surgery, her platelet count was normal at 175. The patient then presented as previously mentioned to the ER complaining of upper abdominal pain. CBCs were done at that time and her platelets were then 88 and then most recently had dropped down to 20. Xarelto was discontinued around the time that the patient presented with platelets closer to 88. She also developed a hematoma of her left knee which also prompted the discontinuation of Xarelto. The patient has had a CT scan previously which showed no evidence of intra- abdominal bleeding. Abdominal ultrasound has been done, and she does have mild splenomegaly. There is also evidence that the patient has hemolytic anemia. We have been asked for further evaluation and workup. PAST MEDICAL HISTORY: 1. Hypertension. 2. Osteoarthritis. 3. IBS. PAST SURGICAL HISTORY: 1. section. 2. Partial hysterectomy. 3. Left TKA, 09/29/2016. SOCIAL HISTORY: Denies any alcohol, drug or tobacco use. Patient is . She has her 2 siblings at her bedside. FAMILY HISTORY: Denied any family history of any blood disorders or any cancer in any close relatives. There is a history of CVA in the patient's mother and sister. REVIEW OF SYSTEMS: A 12- point review of systems has been completed and is negative except for what was expressed in the HPI. PHYSICAL EXAMINATION: Vital Signs: Temperature 98.2 degrees, heart rate 80, respirations 20, blood pressure 195/102, O2 saturations 99% on 4 L nasal cannula. General: female lying in hospital bed. She does appear to be in acute distress secondary to her acute pain. Her brother and sister are at bedside. Head: Normocephalic, atraumatic. Eyes : Pupils equal, round, reactive. Ears, nose, throat, neck, and mouth: Oral mucosa is normal. Trachea is midline. Neck is supple. Cardiovascular: S1-S2 heard. No murmurs, gallops, rubs appreciated. Respiratory: Chest is clear to auscultation bilaterally. Normal respiratory effort. Gastrointestinal: Abdomen is obese. Does not appear to be distended. She does have pain but no guarding or rebounding noted. Musculoskeletal: No obvious bony abnormalities. Extremities: She has edema specifically of her left leg. She is status post TKA in that leg with intacted surgical incision. She has a large hematoma that begins in her mid thigh and extends all the way down to her mid calf. Right lower extremity is unremarkable. IMAGING: Ultrasound as for the HPI which shows mild splenomegaly. Patient does also have a CT of the abdomen and pelvis done on 10/07/2016 which was negative for any acute findings. LABORATORY DATA: White blood cells are up to 12.41, hemoglobin 8.8, hematocrit 27.6, platelets 21,000. PT/INR 12.0 and 1.13 respectively. Total bilirubin is 2.40. LDH is 827. B12 is 900. Folate is 4.8. MVP is 11.8, haptoglobin is less than 10. ASSESSMENT AND PLAN: 1. 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 We will check flow cytometry as well as serum protein electrophoresis. Replete folate. The patient is also having hemolytic anemia. Please see below. The patient has received 1 unit of platelets. Plan will be to draw a CBC 1 hour post transfusion to see if the patient responds to platelets. If not , the plan is to initiate high-dose steroids. 2. Hemolytic anemia. Direct Deep test has now been ordered. Again, flow cytometry as well as serum protein electrophoresis, reticulocytes, and iron have also been ordered. IV steroids as per above. 3. Leukocytosis. This is a new issue as well. Lab orders as per above. 4. Large left leg hematoma. Continue to monitor her hemoglobin closely. Monitor leg closely as well. Dr. Muñiz has been consulted. 5. Splenomegaly and abdominal pain. Dr. South has also been consulted from GI. Gastroenterology workup will be limited secondary to the low platelet count. Thrombocytopenia and hemolytic anemia workup as per above. 6. Pain. Adjust pain medicines as needed. She has been receiving [place] but it looks like Dilaudid has been added. Dilaudid seems to have been effective previously. Dictated by INA Alejandre for Devin Vega MD cc: Devin Vega MD [facility]
--- NOTE | 2016-10-09 13:15 | PROGRESS NOTE ---
DATE: 10/09/2016 SUBJECTIVE: Patient still has abdominal pain not resolved by her IV pain medication. OBJECTIVE: Vital Signs: Blood pressure 195/102, heart rate of 80, respiratory rate 20, temperature 98.2 degrees, 99% saturation on 4 L. Cardiovascular: Regular rate and rhythm. Pulmonary: Bilateral breath sounds. Clear to auscultation. GI: Soft, nontender, nondistended. Bowel sounds are positive. LABORATORY DATA: 1. Platelet count is about the same, 21,000. 2. White count is 12, hemoglobin and hematocrit of 8 and 27, platelets 21,000. Basic was normal. Whole blood flow cytometry is pending. Her lipase is up a little bit 66. Vitamin B 12, 900, folate 4.8, T-bilirubin 2.4 (most of that being indirect at 1.7). Overall coagulations are normal. PROBLEM LIST: 1. Thrombocytopenia with recent bleed into her left leg, unclear source. Differential includes drug-induced versus a primary autoimmune issue such as idiopathic thrombocytopenic purpura or thrombotic thrombocytopenic purpura. Hematology/Oncology has been consulted and they will follow. 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 We will have Dr. Vega evaluate the patient, evaluate for primary hematological issues. She is on several medications that can cause thrombocytopenia including Rivaroxaban, Lyrica and most recently Bactrim. Bactrim can also cause hemolytic anemia, so we will continue to follow. She was thrombocytopenic, although before the institution of Bactrim, and that was only started I think on the fourth. So, this may be a medication-related issue. We will follow. 2. Abdominal pain still unclear. It is pain out of proportion of exam. I am waiting on gastroenterology input. She has had a CT, she has had an ultrasound; the only thing unusual was splenomegaly, which is likely related to her thrombocytopenia and is really not that much enlarged to cause pain. We will go up on her pain medication. If endoscopy is needed, obviously her platelet count will need to be stabilized, and I have explained this to the family. Will continue proton pump inhibitor. 3. Total knee arthroplasty with significant hematoma in her left leg. We will continue to monitor. Dr. Muñiz is following on her leg and continues to follow. Hemoglobin and hematocrit is stable. We will just continue supportive care at this time. DISPOSITION: Pending the rest of her issues, we will continue to monitor. I did go ahead and order 1 dose of platelets, and I think we will initiate at least some steroids to see if we can help with her thrombocytopenia pending Dr. Vega's recommendations. cc: Merlin Jacques MD
[2016-10-09] MEDS ORDERED: SOLU-MEDROL IV ONE (13:42)
[2016-10-09] MEDS: FOLIC ACID 1 MG in NS 50 ML IV SCH (14:13)
[2016-10-09] MEDS: ICAR-C PO SCH (20:39)
[2016-10-09] MEDS: MIRALAX PO SCH (20:39)
[2016-10-09] MEDS: NEXIUM IV SCH (22:46)
[2016-10-10] MEDS: DILAUDID IV PRN ×5 (02:02→16:17)
[2016-10-10 06:52] LABS: AGAP 9; ALKALINE PHOSPHATASE 114 U/L (32-104); BUN 14 mg/dL (8-22); CALCIUM 9.1 mg/dL (8.8-10.2); CHLORIDE 97 mmol/L (98-107); COSMO 278; GOT 34 U/L (10-30); GPT 21 U/L (10-36); HEMOGLOBIN 8.1 g/dL (12.0-16.0); MCH 34.8 PG (27-31); MCHC 32.4 g/dL (33-37); MCV 107.3 FL (81-99); MPV 11.6 FL (7.4-10.4); RBC 2.33 XMIL (4.2-5.4); SODIUM 138 mmol/L (136-145); TCO2 32 mmol/L (25-35); TOTAL BILIRUBIN 2.75 mg/dL (0.20-1.00)
[2016-10-10 06:54] LABS: PLT 19 X1000 (130-400)
--- NOTE | 2016-10-10 08:12 | PROGRESS NOTE ---
DATE: 10/10/2016 SUBJECTIVE: Ms. Pate is a 76-year-old, white female, who is 11 days postoperative from a left total knee arthroplasty. She has been having some postoperative bruising. She has no new complaints. OBJECTIVE: General: She is a well-developed female in no acute distress. She is alert and cooperative with the examination. Vital Signs: Stable and she is afebrile. Extremities: Her incision is clean, dry, and intact without sign of infection. Her calf is soft. She has 2+ pedal pulse on the left leg. She still does have some postoperative ecchymoses but has improved since yesterday. She has good range of motion of her knee without pain. ASSESSMENT: Postoperative day 11 from a left total knee arthroplasty with postoperative ecchymosis. PLAN: I do believe her bruising has improved and we will continue to monitor her. As long as she continues to move her knee without pain, she will continue to not need any surgical intervention at this time. Dictated by IAN Rivera for Dhruv Muñiz MD cc: IAN Rivera MD [facility]TD[facility]
[2016-10-10] MEDS ORDERED: DECADRON IV ONE (08:32)
[2016-10-10] MEDS ORDERED: CENTRUM SILVER PO SCH (09:00)
[2016-10-10] MEDS: MIRALAX PO SCH (09:05)
[2016-10-10] MEDS: ICAR-C PO SCH (09:06)
[2016-10-10] MEDS: COLACE PO SCH (09:14)
[2016-10-10] MEDS: LYRICA PO SCH (09:15)
--- NOTE | 2016-10-10 09:19 | CONSULTATION ---
DATE OF CONSULTATION: 10/09/2016 ATTENDING PHYSICIAN: Merlin Jacques MD REASON FOR CONSULTATION: Left total knee arthroplasty HISTORY OF PRESENT ILLNESS: Ms. Pate is a 76-year-old female who is 10 days postop on a left total knee arthroplasty. She reports she is not having any pain in her left knee or leg, but there is significant discoloration of her leg. We were asked to further evaluate. ALLERGIES: Morphine. PAST MEDICAL HISTORY: Hypertension, osteoarthritis, irritable bowel syndrome. PAST SURGICAL HISTORY: She had a section, partial hysterectomy. MEDICATION: See medication list in the chart. REVIEW OF SYSTEMS: Ten-point review of systems was reviewed and is otherwise negative other than what was stated in the HPI above. PHYSICAL EXAMINATION: General: She is a well-developed female in no acute distress. Head: Normocephalic, atraumatic. Neck: Supple. Cardiovascular: Regular rate and rhythm. Pulmonary: Respirations are nonlabored. Gastrointestinal: Abdomen is nondistended. Neurological: She discerns soft touch to the affected extremity. Gross motor function is intact. Extremities: Left knee: She has good range of motion of her left knee. Her incision is healing well, with no signs of infection or drainage. Her leg has eccyhmosis from the proximal portion of her thigh down to her foot. Her calf is soft. Her left leg is neurovascularly intact. IMPRESSION: Postoperative day 10 from left total knee arthroplasty with post operative ecchymosis PLAN: She has good range of motion of her knee without pain. At this time, surgical intervention is not necessary. We will continue to monitor and continue to keep her off Xarelto. Dictated by IAN Rivera for Dhruv Muñiz MD cc: IAN Rivera MD [facility]
[2016-10-10 10:55] LABS: BANDS 6 % (0-1); LYMPHS 12 % (21-51); MONO 6 % (1-9)
[2016-10-10 10:56] LABS: LARGE PLATELETS 1+
[2016-10-10] MEDS ORDERED: DECADRON PO ONE ×2 (11:29)
[2016-10-10] MEDS ORDERED: DESYREL PO PRN (11:35)
--- NOTE | 2016-10-10 12:04 | Diag Imaging Result Doc PS360 ---
EXAM: ABDOMEN FLAT/UPRIGHT HISTORY: pain TECHNIQUE: Upright and supine, three views COMPARISON: None. FINDINGS: No free air beneath the diaphragm. There is air and stool throughout the colon. The bowel loops are not distended. No organomegaly. Mild scoliosis with degenerative spine changes. IMPRESSION: No definite acute abnormality. Electronically signed by Tanner Anne 10/10/2016 12:02 PM
[2016-10-10] MEDS: FOLIC ACID 1 MG in NS 50 ML IV SCH (13:06)
[2016-10-10] MEDS: SODIUM CHLORIDE 0.9% INJ SCH (13:06)
[2016-10-10] MEDS: NEXIUM IV SCH (13:06)
--- NOTE | 2016-10-10 13:12 | CONSULTATION ---
DATE OF CONSULTATION: 10/09/2016 PRIMARY MEDICAL DOCTOR: Nona Hoffman MD. REQUESTING PHYSICIAN: Merlin Jacques MD. REASON FOR CONSULTATION: Abdominal pain. HISTORY OF PRESENT ILLNESS: Ms. Pate is a 76-year-old female who was admitted on 10/08/2016 with abdominal pain in periumbilical region along with decreased p.o. intake, nausea and constipation. She had recent right knee surgery by Dr. Muñiz on 09/29/2016. She had left knee arthroplasty. She was put on blood thinners postoperatively but she developed a large hematoma on the left leg and thigh, and some oozing from the incision site, so they have taken her off Xarelto now. She was also noted to have thrombocytopenia which dropped from 175,000 to 20,000 today. She was also noted to be anemic which was likely secondary to postsurgical hematoma. Gastroenterology team has been consulted to evaluate for progressive thrombocytopenia and there is a concern for ITP per the Hematology team. The patient has been complaining of periumbilical abdominal pain, bloating and she has constipation. She does take some laxatives at home but has not had a good bowel movement for a few days now. She does have decreased p.o. intake, has been eating less and less, and felt dehydrated. She had a EGD and colonoscopy many years ago but does not recall the results of the procedure. She denies any vomiting of blood or passing blood in the stools. PAST MEDICAL HISTORY: Hypertension, osteoarthritis, irritable bowel syndrome, obesity, thrombocytopenia, anemia, arthritis. PAST SURGERY HISTORY: , partial hysterectomy, recent left knee surgery on 09/29/2016. Previous history of EGD and colonoscopy many years ago. SOCIAL HISTORY: No history of alcohol, tobacco or illicit drugs. She is currently at a rehabilitation facility after knee surgery. ALLERGIES: Morphine. REVIEW OF SYSTEMS: Denies any current fevers, rigors, chills, chest pain, shortness of breath at rest. Denies any new genitourinary complaints. Does have a history of arthritis. Denies any nausea or vomiting, vomiting blood or passing blood in the stools. She does complain of feeling bloated and constipated. She is hurting in the surgical area and in the abdomen for which she is getting narcotics. She denies any nosebleeds or gum bleeding. No other abnormal urinary tract bleeding. FAMILY HISTORY: Noncontributory. MEDICATIONS IN THE HOSPITAL: Colace, Nexium 40 mg IV b.i.d., folic acid, hydrocodone/ acetaminophen 1 tab p.o. t.i.d. as needed, Dilaudid 1 mg IV daily as needed, iron and vitamin C b.i.d., multivitamin once daily, Zofran 4 mg IV q. 4 hours, MiraLAX 34 g p.o. b.i.d., Lyrica 75 g p.o. b.i.d., Ambien 5 mg at bedtime, Decadron 4 mg IV now, glycerin suppository x1. DIET: She is on a clear liquid diet. PHYSICAL EXAMINATION: Vital Signs: Temperature 97.8 degrees, pulse 91, respiratory rate 21, blood pressure 217/84, saturating 100% on nasal cannula 4 L. Body weight of 200 pounds, BMI of 39.1 kg. General: Patient is obese, sitting in bed/chair, in no acute distress. HEENT: Pale conjunctivae. No icterus. Pupils equal and reactive to light. Neck: Supple. Chest: Decreased Breath sounds at the bases Heart: Regular rate and rhythm. No murmur. Abdomen: Mildly protuberant, obese, discomfort in periumbilical region, bowel sounds are hypoactive, no guarding. Extremities: She has hematoma extending from the thigh to the knee from recent surgery and use of anticoagulation. Some oozing was noted from the left knee incision site from recent left knee arthroplasty. No cyanosis or clubbing. Hematoma noted in the left lower extremity. Neurologic: She is alert, awake, oriented. LABS: Hemoglobin and hematocrit 8.2 and 25.5, white count 10.9, platelet count of 35,000, MCV 106.3. Reticulocyte count of 4.94, haptoglobin is less than 10. INR 1.1. PT of 12, PTT of 32.1. Sodium 137, potassium 4.1, chloride 100, bicarbonate 29, anion gap 8, BUN 15, creatinine 0.5, glucose of 120, calcium 9.1, iron 90, ferritin of 1340. Total bilirubin is 0.24 , direct 0.7, AST 44, ALT 22, alkaline phosphatase 105, LDH 827, total protein 7.2, albumin 4.1, amylase of 70, lipase 66, vitamin B12 of 900, folate 4.8. IMAGING STUDIES: 1. She had abdominal ultrasound done on 10/08/2016 which showed fatty liver, mild splenomegaly with spleen size measuring 14.5, 14.4 into 4.8 cm. The gallbladder, pancreas, and both kidneys are normal. Common bile duct measuring 5 mm. 2. She had a CT scan of the abdomen and pelvis done 10/07/2016 which showed fatty infiltration of the liver, no bowel obstruction, hysterectomy, small left lower lobe nodule, scattered diverticula noted in the colon. IMPRESSION/PLAN: 1. Abdominal pain with nausea, decreased p.o. intake and constipation in the setting of recent left knee arthroplasty which is complicated by hematoma, thrombocytopenia and anemia. 2. Diverticulosis of the colon. 3. Obesity. 4. Fatty liver with mild splenomegaly. 5. Mild indirect hyperbilirubinemia likely secondary to hematoma causing mild elevation of LDH. 6. Thrombocytopenia. Question of idiopathic thrombocytopenic purpura being evaluated Dr. Asiya Castro. RECOMMENDATIONS: 1. We will start the patient on MiraLAX 34 g p.o. b.i.d. mixed with 16 oz of water. 2. We will keep her on a clear liquid diet until she starts moving her bowels. 3. We will increase fiber to 25-30 g q. 24 hours. 4. We will avoid any NSAIDs. Anticoagulation has already been withheld. 5. At some point she will need EGD and colonoscopy. We will wait until she heals from recent surgery and all current acute issues are resolved. We will also obtain a KUB today to evaluate for any bowel obstruction. 6. Anemia. Treatment per the Primary Care team. We will start her on Iron and vitamin C b.i.d. and multivitamin once daily. 7. We will also give 1 dose of glycerin suppository to help with her bowels. 8. She will continue GI prophylaxis with PPIs. Above plan discussed with patient and family. All questions answered. cc: MD Merlin Mondragon MD Bernice Swain, MD Richard S. Sharp, MD Heather Shah, MD MTDD
--- NOTE | 2016-10-10 14:08 | PROGRESS NOTE ---
DATE: 10/10/2016 SUBJECTIVE: Ms. Pate is still having abdominal pain. Overall, she appears to be stable. OBJECTIVE: Vital Signs: Temperature 98 degrees, heart rate 85, respirations 21 , blood pressure 167/61, O2 saturation 99% on room air. LABORATORY: White blood cells 13.09, hemoglobin 8.1, hematocrit 25.0, and platelets 19,000. Sodium 138, potassium 4.0, chloride 97, CO2 of 32, BUN 14, creatinine 0.5, glucose 135. Total bilirubin is 2.75 and direct bilirubin is 1.0. Ferritin is 1340. Reticulocyte percent is 4.94. X-RAY: Abdominal x-ray shows no acute abnormalities. PHYSICAL EXAMINATION: Cardiovascular: Regular rate and rhythm. Respiratory: Normal respiratory effort. Gastrointestinal: Abdomen is obese. Diffuse tenderness. Extremities : The patient has a large hematoma on the left leg. Status post left TKA with intact surgical incision. She also has swelling in bilateral lower extremities. ASSESSMENT AND PLAN: 1. Thrombocytopenia. The patient did receive a unit of platelets yesterday. She was also given some steroids yesterday. Her platelets are back down. There is now questions of whether or not the patient actually does have thrombotic thrombocytopenic purpura. Plan will be to review the slide with Pathology. Further recommendations after that time. We also went ahead and ordered an [id number]. 2. Hemolytic anemia. Patient's hemoglobin is overall stable. Suspected thrombotic thrombocytopenic purpura, as per above. Further recommendations once the slide has been reviewed. 3. Abdominal pain. Gastroenterology is on board. X-ray today is unremarkable. Continue p.r.n. pain medications. 4. Large left leg hematoma with previous left total knee arthroplasty at the end of September 2016. Patient has now been seen and evaluated by Orthopedics. No plans for any sort of intervention at this time, as it is not currently needed. Dictated by IAN Alejandre for Asiya Castro MD cc: Asiya Castro MD I have seen and examined the patient and agree with above A/P Need to R/o TTP. I have reviewed the case with DR. Jacques, Dr Arevalo and Dr Aguilar. Asiya Castro MD [facility]
[2016-10-10 14:11] VITALS: BP 186/79
[2016-10-10] MEDS: NORCO-7.5 PO PRN (14:42)
[2016-10-10 14:43] LABS: URINE MICRO REVIEW NEEDED? NO; URINE SOURCE CLEAN CATCH
[2016-10-10 14:48] LABS: BILIRUBIN URINE NEGATIVE (NEGATIVE); BLOOD URINE SMALL (NEGATIVE); COLOR YELLOW; GLUCOSE URINE NEGATIVE (NEGATIVE); LEUKOCYTES URINE NEGATIVE (NEGATIVE); NITRITE URINE NEGATIVE (NEGATIVE); PH URINE 6.5; PROTEIN URINE 70 mg/dL (NEGATIVE); SP GRAVITY URINE 1.018; TURBIDITY URINE CLEAR (CLEAR); UR EPITHELIAL CELLS <10 /HPF (<10); URINE BACTERIA NEGATIVE /HPF; URINE RBC <10 /HPF (<10); URINE WBC <10 /HPF (<10); UROBILINOGEN URINE 4 mg/dL (NORMAL)
--- NOTE | 2016-11-01 22:40 | DISCHARGE SUMMARY ---
ADMISSION DATE: 10/09/2016 DISCHARGE DATE: 10/10/2016 DISCHARGE DIAGNOSIS: 1. Thrombocytopenia related to bleed from her left leg . 2. Abdominal pain. 3. Recent total knee arthroplasty. 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 HOSPITAL COURSE: Briefly she was admitted on the with bleeding in her left leg well a large amount of ecchymoses and fairly significant thrombocytopenia, she was also having abdominal pain. Her workup in the ER she had an abdominal ultrasound. I think that was not remarkable, she had a fatty liver, mild splenomegaly but her initial platelet count was 20,000, Hematology/Oncology was consulted because there was some concern over possible TTP versus ITP. I think we did start her on steroids. She had been on several medications including Xarelto, Lyrica and Bactrim. 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 We did give her 1 dose of platelets but I think her platelet count did not improve or improved a little bit to 35,000 but on the had dropped back down to 17,000. Orthopedics felt that her joint was stable. Dr. South was consulted I think the abdominal pain, felt it was likely related to significant constipation and he treated her with laxative therapy. In any case on the 7th her platelet count did drop, her haptoglobin was low, her retic count was high, her protein electrophoresis was normal, her total bilirubin went up to 2.75 most that being direct consistent with hemolysis and she did have schistocytes noted on that, her LDH was elevated, her folate level was a little low but her LDH continued to increase despite steroids and she was transferred to [place] for evaluation for TTP, possible exchange, transfusion. cc: Merlin Jacques MD
== END 2016-10-10 16:40 | disposition short-term general hospital (02) ==
LOC: 3N 15:56 → ED 15:56
PROVIDERS: ATTEND Internal Medicine

== ENCOUNTER 2016-10-28 13:25 | Inpatient (IN) ==
[2016-10-28] MEDS ORDERED: LR 1,000 ML ONE (13:54)
[2016-10-28] MEDS ORDERED: TOBRAMYCIN ONE (16:22)
[2016-10-28] MEDS ORDERED: NEOSPORIN G.U. IRRIGANT ONE (16:34)
[2016-10-28] MEDS ORDERED: VANCOMYCIN ONE (16:34)
[2016-10-28] MEDS ORDERED: DIPRIVAN 1% ONE (16:55)
[2016-10-28] MEDS ORDERED: XYLOCAINE-MPF 2% ONE (16:56)
[2016-10-28] MEDS ORDERED: ROBINUL ONE (16:56)
[2016-10-28] MEDS ORDERED: QUELICIN (DOSE) ONE (16:56)
[2016-10-28] MEDS ORDERED: VANCOMYCIN 1 GM/NS 1 GM/250 ML IVPB ONE (17:43)
[2016-10-28] MEDS ORDERED: FENTANYL ONE (17:55)
[2016-10-28] MEDS ORDERED: ZOFRAN ONE (18:05)
[2016-10-28 18:44] LABS: URINE MICRO REVIEW NEEDED? NO; URINE SOURCE CATH
[2016-10-28 18:48] LABS: BILIRUBIN URINE NEGATIVE (NEGATIVE); BLOOD URINE NEGATIVE (NEGATIVE); COLOR YELLOW; GLUCOSE URINE NEGATIVE (NEGATIVE); LEUKOCYTES URINE NEGATIVE (NEGATIVE); NITRITE URINE NEGATIVE (NEGATIVE); PROTEIN URINE TRACE mg/dL (NEGATIVE); SP GRAVITY URINE 1.022; TURBIDITY URINE CLEAR (CLEAR); UROBILINOGEN URINE 3 mg/dL (NORMAL)
[2016-10-28 18:50] LABS: UR EPITHELIAL CELLS <10 /HPF (<10); URINE BACTERIA NEGATIVE /HPF; URINE RBC <10 /HPF (<10); URINE WBC <10 /HPF (<10)
[2016-10-28] MEDS: DILAUDID ONE ×4 (18:59→19:26)
[2016-10-28 19:36] LABS: HEMATOCRIT 29.5 % (37.0-47.0); HEMOGLOBIN 9.2 g/dL (12.0-16.0); MCH 34.5 PG (27-31); MCHC 31.2 g/dL (33-37); MCV 110.5 FL (81-99); RBC 2.67 XMIL (4.2-5.4)
[2016-10-28] MEDS ORDERED: NS 1,000 ML ONE (19:40)
[2016-10-28 19:42] LABS: AGAP 13; BUN 12 mg/dL (8-22); CALCIUM 8.5 mg/dL (8.8-10.2); CHLORIDE 98 mmol/L (98-107); COSMO 275; POTASSIUM 4.4 mmol/L (3.5-5.1); SODIUM 137 mmol/L (136-145); TCO2 26 mmol/L (25-35)
--- NOTE | 2016-10-28 20:04 | OPERATIVE NOTE ---
PROCEDURE DATE: 10/28/2016 PREOPERATIVE DIAGNOSIS: Left infected total knee arthroplasty. POSTOPERATIVE DIAGNOSIS: Left infected total knee arthroplasty. PROCEDURES: Irrigation and debridement of left infected total knee arthroplasty with exchange of the polyethylene insert and implantation of antibiotic impregnated beads with tobramycin and vancomycin. ANESTHESIA: General. SURGEON: Dhruv Muñiz MD CUSHION FILLER: Tabitha Hart PA-C who was present throughout the case and assisted with critical portion of the case, including wound, debridement of the wound, irrigation, poly exchange and placement of the antibiotic beads and wound closure. DRAINS: Hemovac x2. CULTURES: x2, superficial and deep. TOURNIQUET TIME: Approximately 1 hour. DESCRIPTION OF OPERATION: The patient was brought to operative suite and placed in supine position. After successful administration of general anesthesia, a well-padded tourniquet was placed along the left proximal thigh and left lower extremity was prepped and draped in the usual sterile fashion. The tourniquet was insufflated with the leg elevated, but no exsanguination. The previous incision was opened. There was found to be serosanguineous-type material in the superficial bursa that was cultured. There was no fraying defect of the knee. The superficial bursa area was debrided of any necrotic tissue and copiously irrigated with normal saline containing irrigant. When the knee was flexed, however, purulent material was expelled from the knee joint. Therefore, the knee joint was opened all the way to the prosthesis through the quadriceps tendon and a medial arthrotomy was performed. Necrotic tissue was removed and the cultures were obtained from the intra-articular portion as well. Necrotic tissue was debrided. The previous polyethylene insert was removed. The knee was copiously irrigated with normal saline containing irrigant. Tobramycin, vancomycin impregnated beads were placed in a hole on the posterior capsule, then the articular insert was locked back into place with a new one and then mortar tobramycin and vancomycin beads were placed intra-articularly. A drain was placed exiting superolaterally out of the wound intra-articular portion of the knee, as well as the subcutaneous portion of the knee, and then the medial arthrotomy was closed with 0 V-Loc suture. More tobramycin beads were placed in the superficial bursa and the skin edges were approximated with 2- 0 nylon. A sterile dressing and a cooling blanket were applied. The patient tolerated the procedure well without complication. At the end the procedure, all counts correct. The patient was transferred to the recovery room in stable condition. cc: Dhruv Muñiz MD
[2016-10-28] MEDS ORDERED: DILAUDID IV PRN (20:52)
[2016-10-28] MEDS ORDERED: AMBIEN PO PRN ×2 (20:54→21:30)
[2016-10-28] MEDS ORDERED: TYLENOL PO PRN ×3 (20:54→21:29)
[2016-10-28] MEDS ORDERED: MILK OF MAGNESIA PO PRN ×2 (20:54→21:29)
[2016-10-28] MEDS: PERCOCET-10 PO PRN (21:46)
[2016-10-28] MEDS: NS 1,000 ML IV SCH (21:47)
[2016-10-28] MEDS: PERIDEX MT SCH (21:47)
[2016-10-28] MEDS ORDERED: VANCOMYCIN 1 GM/NS 1 GM/250 ML IVPB IV ONE (22:00)
[2016-10-28] MEDS ORDERED: PROTONIX PO ONE (23:34)
[2016-10-29] MEDS: PERCOCET-10 PO PRN ×5 (04:41→18:24)
[2016-10-29 05:50] LABS: INR 1.12; PROTIME 11.8 Seconds (9.2-11.7)
[2016-10-29] MEDS: PROTONIX PO SCH (06:56)
[2016-10-29] MEDS ORDERED: PROTONIX PO SCH (07:00)
[2016-10-29] MEDS: KLOR-CON PO SCH (08:21)
[2016-10-29] MEDS: PERIDEX MT SCH (08:21)
[2016-10-29] MEDS: MIRALAX PO SCH (08:21)
[2016-10-29] MEDS: ARIXTRA SUBQ SCH (08:22)
[2016-10-29] MEDS ORDERED: BLISTEX MEDICATED BERRY LIP BALM TOP PRN (08:48)
[2016-10-29] MEDS ORDERED: MICRO-K PO SCH (09:00)
[2016-10-29] MEDS ORDERED: MIRALAX PO SCH (09:00)
[2016-10-29] MEDS: NS 1,000 ML IV SCH (10:29)
--- NOTE | 2016-10-29 10:47 | CONSULTATION ---
DATE OF CONSULTATION: 10/29/2016 CONCLUSION: The patient is status post irrigation and debridement of left infected total knee arthroplasty with exchange of the polyethylene insert and implantation of antibiotic impregnated beads with tobramycin and vancomycin. Thus far, the Gram stain and the material at surgery showed no organisms. The culture from the same place thus far is pending. RECOMMENDATIONS: I agree with starting the patient on vancomycin pending culture results. DISCUSSION: The patient tells me a month ago she had a left total knee arthroplasty. Since that time, she has had swelling and pain in the knee. She says it drains a sanguinous type of fluid. She also has been having fever. Lab work thus far shows a CBC with a white count of 5780, hemoglobin 9.2, platelet count 187,000. Creatinine 0.5. GFR is greater than 60. Urinalysis showed no white cells or bacteria. Gram stain from the patient's left knee showed no bacteria. The culture from the same knee at this time is pending. PAST MEDICAL HISTORY/REVIEW OF SYSTEMS: Eyes and ears: She denies difficulty hearing or seeing. Neck: No stiffness. Respiratory: No cough or shortness of breath. Cardiovascular: No chest pain or palpitations. GI: No nausea, vomiting or diarrhea. Bones, joints, muscles: She is having pain coming from her left knee which was the knee that was operated on yesterday. Other than that, she is not complaining of pain in other joints. She does not have any muscle aches. Endocrine: Patient says she is not a diabetic and she does not have thyroid disease. Genitourinary: No dysuria or flank pain. The remainder of the patient's review of systems was completed and was negative. [employer] INSTALLER HISTORY: The patient is a 2, para 3, AB 0. She has had a history of hysterectomy and tubal ligation. PREVIOUS HOSPITALIZATIONS AND OPERATIONS: She has had 2 labor and deliveries, a hysterectomy, tubal ligation, and a left total knee arthroplasty. MEDICAL DISEASES: Positive for osteoarthritis. INFECTIOUS DISEASE HISTORY: Positive for UTI. FAMILY HISTORY: Positive for diabetes mellitus and stroke. [place]IAL HISTORY[place] He is allergic to morphine. He is a and he lives alone. Does not have any pets at home. HOME MEDICATIONS: 1. Oxycodone. 2. Milk of magnesia. 3. Tylenol. 4. Potassium. 5. MiraLAX. 6. Protonix . 7. Oxycodone. 8. Arixtra. 9. Zolpidem. PHYSICAL EXAMINATION: Vital Signs: Temperature is 97.5 degrees, pulse 84, respirations 20, blood pressure 145/59. Patient weighs 204 pounds. General: Generally this is a somewhat ill- appearing, elderly female. She is in no acute distress at this time. Head, eyes, ears, nose, and throat: She can hear my spoken words and see near objects. No drainage noted from the nose or ears. There is no white coating to the tongue. Neck: No meningismus. Thorax: No increased AP diameter of the chest. Lungs: Clear to auscultation. Cardiovascular: Heart rate is regular. Abdomen: Soft and nontender. Extremities: The patient's left knee has a large dressing around it. A drain is in place and the dressing is intact. Neurologic: Patient is awake. She can move her extremities. There is no tremor. Her sensation is intact to touch. Her memory, as regarding her medical history, was intact. Integument: No rash noted. Thank you for the consult. cc: MD Dhruv Canela MD
[2016-10-29] MEDS ORDERED: NS 250 ML ONE (13:23)
--- NOTE | 2016-10-29 14:08 | PROGRESS NOTE ---
DATE: 10/29/2016 SUBJECTIVE: Kendra Pate is a 76-year-old female who is postoperative day 1 from an irrigation and debridement of her left knee infection. She complains of pain in her left knee. OBJECTIVE: She is a well-developed, well-nourished female. She is alert and oriented, and cooperative with the exam. Her Gram stains were negative, but her cultures are not back yet. She has had minimal output from her drains. ASSESSMENT: Left infected total knee arthroplasty. PLAN: We will get Physical Therapy to work with her. We will plan on removing her drains tomorrow. She will likely go to rehab on Thursday. cc: Dhruv Muñiz MD
[2016-10-30] MEDS: PERIDEX MT SCH ×3 (02:58→20:27)
[2016-10-30] MEDS: NS 1,000 ML IV SCH ×3 (03:53→20:33)
[2016-10-30] MEDS ORDERED: VANCOMYCIN 1,600 MG in NS 250 ML IV SCH (04:00)
[2016-10-30] MEDS: PROTONIX PO SCH ×2 (05:46→06:30)
[2016-10-30] MEDS: PERCOCET-10 PO PRN ×3 (05:49→20:26)
[2016-10-30] MEDS: ARIXTRA SUBQ SCH (08:28)
[2016-10-30] MEDS: KLOR-CON PO SCH (08:28)
[2016-10-30] MEDS: MIRALAX PO SCH (08:29)
--- NOTE | 2016-10-30 09:44 | PROGRESS NOTE ---
DATE: 10/30/2016 SUBJECTIVE: Kendra Pate is a 76-year-old female who is postoperative day 2 from an irrigation and debridement of her right infected total knee arthroplasty. She is doing well and has no complaints. She states it is improving. OBJECTIVE: She is a well-developed, well-nourished female. She is alert and cooperative with the exam. She has had minimal output from her drain. Her cultures from her knee have come back with gram-positive cocci but no sensitivity yet. IMPRESSION: Infected left total knee arthroplasty. PLAN: We will plan on continuing her IV antibiotics. Once we get the cultures back, she can probably go back to rehab with IV antibiotics. cc: Dhruv Muñiz MD
--- NOTE | 2016-10-30 16:34 | PROGRESS NOTE ---
DATE: 10/30/2016 PRESENT ILLNESS: The patient is status post irrigation and debridement of a left infected total knee arthroplasty with exchange of the polyethylene insert and implantation of antibiotic- impregnated beads with tobramycin and vancomycin. Culture from the knee is growing methicillin- resistant Staph aureus. MEDICATIONS: Patient is on vancomycin as a single agent. PHYSICAL EXAMINATION: Vital Signs: Temperature is 97.9 degrees, pulse 101, respirations 20, blood pressure is 111/69. General: This is a somewhat ill-appearing, elderly female. She is having some pain with her knee, but she is in no acute distress. Lungs: Clear to auscultation. Cardiovascular: Regular heart rate. Abdomen: Soft and nontender. Extremities: Patient's right arm: She has a PICC. The site is not erythematous or swollen. The patient's left knee which was the one that Dr. Muñiz operated on has a dressing on it. The dressing is intact. There is no visible erythema. ASSESSMENT AND PLAN: The patient has a methicillin-resistant Staphylococcus aureus infection of the total knee arthroplasty. The plan will be to give the patient vancomycin intravenous and rifampin oral for a total of 6 weeks. The patient is going to be going to a rehabilitation facility. I have put in a consult for [facility] to continue the patient's vancomycin treatment after the patient leaves the rehabilitation facility. I plan to treat the patient for a total of 6 weeks. I am going to see the patient back in my office in 3 weeks and then again at 6 weeks. At the 6 week visit, we will stop the intravenous vancomycin and rifampin and remove the patient's PICC, and then I will put the patient on a long-term antibiotic in half the normal dose hopefully to keep the infection dormant. The antibiotic I will be giving the patient will either be doxycycline 100 mg daily or trimethoprim sulfamethoxazole of one double-strength tablet daily. COMORBIDITIES: The patient's comorbidities include the fact that she is elderly. She previously had knee surgery. The patient has underlying osteoarthritis. cc: MD Dhruv Canela MD
[2016-10-30] MEDS: RIFAMPIN PO SCH (20:27)
[2016-10-31] MEDS: PERCOCET-10 PO PRN ×2 (00:01→11:40)
[2016-10-31] MEDS: NS 1,000 ML IV SCH (01:30)
[2016-10-31] MEDS ORDERED: VANCOMYCIN 1,500 MG in NS 250 ML IV SCH (06:00)
[2016-10-31 06:19] LABS: BASO% 0.8 % (0.0-0.8); EOS# 0.05 X1000 (0.0-0.7); EOS% 1.4 % (0.0-10.0); HEMATOCRIT 25.6 % (37.0-47.0); HEMOGLOBIN 8.1 g/dL (12.0-16.0); LYMPH# 1.23 X1000 (1.2-3.4); LYMPH% 34.5 % (20.5-51.1); MANUAL DIFF NEEDED? NO; MCH 33.5 PG (27-31); MCHC 31.6 g/dL (33-37); MCV 105.8 FL (81-99); MONO# 0.27 X1000 (0.11-0.59); MONO% 7.6 % (1.7-9.3); MPV 10.8 FL (7.4-10.4); NEUT% 55.7 % (42.2-75.2); PLT 189 X1000 (130-400); RBC 2.42 XMIL (4.2-5.4)
[2016-10-31 06:22] LABS: ALBUMIN 2.3 g/dL (3.5-5.0); DIRECT BILIRUBIN 0.9 mg/dL (0.00-0.20); TOTAL BILIRUBIN 1.7 mg/dL (0.20-1.00); TOTAL PROTEIN 5.6 g/dL (6.3-8.3)
[2016-10-31] MEDS: PROTONIX PO SCH (06:40)
[2016-10-31] MEDS: MIRALAX PO SCH (09:02)
[2016-10-31] MEDS: KLOR-CON PO SCH (09:02)
[2016-10-31] MEDS: ARIXTRA SUBQ SCH (09:02)
[2016-10-31] MEDS: PERIDEX MT SCH (09:02)
--- NOTE | 2016-10-31 11:37 | DISCHARGE SUMMARY ---
ADMISSION DATE: 10/28/2016 DISCHARGE DATE: 10/31/2016 DISCHARGE DIAGNOSIS: Infected left total knee arthroplasty. DISCHARGE MEDICATIONS: See discharge medication list. DISPOSITION: The patient is discharged to rehab with instructions for total knee arthroplasty protocol and IV antibiotics for MRSA per Dr. Crystal. She is to return to see Dr. Muñiz in 1 week. HOSPITAL COURSE: On the day of admission, the patient underwent irrigation and debridement of her left knee. We exchanged her polyethylene and placed antibiotic beads and obtained cultures. Her culture results showed MRSA. She is on IV antibiotics and has an IV PICC line. She can continue to weight bear as tolerated and work on flexion and extension of her knee with a total knee arthroplasty protocol. At discharge, she is afebrile, tolerating a regular diet, and her hematocrit is 25.6. She is stable to exam. cc: Dhruv Muñiz MD
[2016-10-31] MEDS: RIFAMPIN PO SCH (11:42)
[2016-10-31 11:44] VITALS: BP 130/65
--- NOTE | 2016-10-31 12:10 | PROGRESS NOTE ---
DATE: 10/31/2016 PRESENT ILLNESS: The patient is status post irrigation and debridement of a methicillin-resistant Staph aureus infection of a left total knee arthroplasty with exchange of the polyethylene insert and implantation of antibiotic-impregnated beads containing tobramycin and vancomycin. A culture from the knee grew methicillin-resistant Staph aureus. MEDICATIONS: The patient is on vancomycin and rifampin. PHYSICAL EXAMINATION: Vital Signs: Temperature is 97.5 degrees, pulse 82, respirations 14, blood pressure 118/56. General: This is a somewhat ill-appearing, elderly female. She is in no acute distress. Lungs: Clear to auscultation. Cardiovascular: Regular heart rate. Extremities: The patient's left knee incision is intact. There is no erythema. Patient has a PICC in the right arm; that site also is not erythematous or swollen. LAB AND X-RAY: CBC for today shows a white count of 3570, hemoglobin 8.1 and platelet count 189,000. Creatinine 0.5. GFR is greater than 60. Liver function studies are normal, except for a bilirubin of 1.7. As mentioned above, the patient's left knee grew methicillin-resistant Staph aureus. ASSESSMENT AND PLAN: The patient has methicillin-resistant Staphylococcus aureus infected left knee, and she will be treated with a combination of vancomycin intravenous and oral rifampin for a total of 6 weeks. Following that, I will put the patient on a low dose of an antibiotic, such as Septra or doxycycline, following the surgery on the knee. The dose will be doxycycline 100 mg daily or Septra one double-strength tablet daily. COMORBIDITIES: The patient's comorbidities include she is elderly, she has previously had knee surgery, and she has underlying osteoarthritis. cc: MD Dhruv Canela MD
== END 2016-10-31 14:30 ==
LOC: SURHOLD 13:25 → 4N 20:34
PROVIDERS: ADMIT Orthopaedic Surgery; ATTEND Orthopaedic Surgery

== ENCOUNTER 2016-11-06 12:09 | Inpatient (IN) ==
[2016-11-06] MEDS ORDERED: TYLENOL PO PRN (13:02)
[2016-11-06] MEDS ORDERED: XANAX PO PRN (13:07)
[2016-11-06 13:28] LABS: MANUAL DIFF NEEDED? NO
[2016-11-06 13:32] LABS: BASO% 0.6 % (0.0-0.8); EOS# 0.05 X1000 (0.0-0.7); HEMATOCRIT 29.5 % (37.0-47.0); HEMOGLOBIN 9.5 g/dL (12.0-16.0); LYMPH# 2.54 X1000 (1.2-3.4); LYMPH% 48.7 % (20.5-51.1); MCH 33.5 PG (27-31); MCHC 32.2 g/dL (33-37); MCV 103.9 FL (81-99); MONO# 0.53 X1000 (0.11-0.59); MONO% 10.2 % (1.7-9.3); MPV 10.6 FL (7.4-10.4); NEUT% 39.5 % (42.2-75.2); PLT 216 X1000 (130-400); RBC 2.84 XMIL (4.2-5.4)
--- NOTE | 2016-11-06 13:37 | Diag Imaging Result Doc PS360 ---
EXAM: CHEST-2 VIEWS INDICATION: INFECTED TOTAL KNEE TECHNIQUE: 2 views COMPARISON: 10/01/2016 FINDINGS: Inspiration is suboptimal. There has been interval placement of a right PICC line. The tip projects over the lower SVC at about the level of the atriocaval junction in the expected position. The lungs are grossly clear. There is no discrete pleural fluid collection or pneumothorax. The cardiomediastinal silhouette and central vasculature are grossly unremarkable. IMPRESSION: Interval placement of right PICC line as described. No definite acute pathology, otherwise. Electronically signed by Doe Hodgson 11/06/2016 1:35 PM
[2016-11-06 13:52] LABS: IRON SATURATION 50 %; TIBC 190 ug/dL; TOTAL IRON 95 ug/dL (49-151); UNBOUND IRON 95 ug/dL (112-346)
[2016-11-06 13:53] LABS: AGAP 13; BUN 7 mg/dL (8-22); CHLORIDE 101 mmol/L (98-107); COSMO 281; SODIUM 142 mmol/L (136-145); TCO2 28 mmol/L (25-35)
[2016-11-06] MEDS ORDERED: NS 1,000 ML IV SCH (14:00)
[2016-11-06] MEDS ORDERED: VANCOMYCIN IV PER PHARMACY MISC SCH (14:00)
[2016-11-06 14:11] LABS: FERRITIN 522 ng/mL (13-150)
[2016-11-06] MEDS ORDERED: KLOR-CON PO ONE (14:24)
--- NOTE | 2016-11-06 15:03 | EKG Report ---
Test Performed on : 11/06/2016 2:06:20 PM Test Reason : irregular beats Blood Pressure : / mmHG Vent. Rate : 077 BPM Atrial Rate : 077 BPM P-R Int : 166 ms QRS Dur : 102 ms QT Int : 416 ms P-R-T Axes : 031 001 018 degrees QTc Int : 470 ms Sinus rhythm. with marked sinus arrhythmia. Leftward axis progression noted inferiorly Cannot rule out Anterior infarct , age undetermined Abnormal ECG When compared with ECG of 24-SEP-2016 11:08, New RSR' V1 T wave inversion in V1 Confirmed by Bubba Rosenbaum DO ([id number]) on 11/08/2016 12:23:10 PM
--- NOTE | 2016-11-06 15:12 | PROGRESS NOTE ---
DATE: 11/06/2016 PRESENT ILLNESS: The patient recently underwent irrigation and debridement of a methicillin- resistant Staph aureus infection of the patient's left total knee arthroplasty with exchange of the polyethylene insert and implantation of antibiotic impregnated beads containing tobramycin and vancomycin. The patient was at rehab and the knee continued to drain. Therefore Dr. Muñiz readmitted the patient to the hospital and plans to remove the prosthesis tomorrow. MEDICATIONS: I am going to restart the patient on vancomycin and rifampin which is what she was receiving during the last hospitalization. PHYSICAL EXAMINATION: Vital Signs: Temperature is 98.1 degrees, pulse 83, respirations 18, blood pressure 157/59. General: This is an obese, elderly female. She is in no acute distress. Head, eyes, ears, nose, and throat: She can hear my spoken words. She can see near objects. Neck: No stiffness. Lungs: Clear to auscultation. Cardiovascular: Regular heart rate. Abdomen: Soft and nontender. Extremities: The patient's left knee dressing was partially removed. The incision is intact but there is drainage of a serosanguineous fluid. The patient has a PICC in her right arm. The PICC site is not erythematous or swollen. LAB AND X-RAY: Chest x-ray shows clear lung acevedo. CBC shows a white count of 5220, hemoglobin 9.5, and platelet count 216,000. Creatinine is 0.5. GFR is greater than 60. ASSESSMENT AND PLAN: My plan is to restart the patient on vancomycin and rifampin as mentioned above, and I went ahead now and took a repeat culture from drainage from the knee in case the patient developed an additional infection. COMORBIDITIES: Include she is elderly, she has previously had knee surgery, and she has underlying osteoarthritis. cc: MD Itz Canela MD MTDD
[2016-11-06] MEDS: NORCO-10 PO PRN ×2 (16:10→22:31)
[2016-11-06 17:26] LABS: URINE CULTURE NEEDED? NO; URINE MICRO REVIEW NEEDED? NO; URINE SOURCE CLEAN CATCH
[2016-11-06 17:30] LABS: BILIRUBIN URINE NEGATIVE (NEGATIVE); BLOOD URINE NEGATIVE (NEGATIVE); COLOR YELLOW; GLUCOSE URINE NEGATIVE (NEGATIVE); LEUKOCYTES URINE NEGATIVE (NEGATIVE); NITRITE URINE NEGATIVE (NEGATIVE); PH URINE 6.5; PROTEIN URINE TRACE mg/dL (NEGATIVE); SP GRAVITY URINE 1.009; TURBIDITY URINE CLEAR (CLEAR); UR EPITHELIAL CELLS <10 /HPF (<10); URINE BACTERIA NEGATIVE /HPF; URINE RBC <10 /HPF (<10); URINE WBC <10 /HPF (<10); UROBILINOGEN URINE NORMAL (NORMAL)
--- NOTE | 2016-11-06 21:49 | CONSULTATION ---
DATE OF CONSULTATION: 11/06/2016 REQUESTING PHYSICIAN: Dr. Muñiz. REASON FOR CONSULTATION: Medical management. HISTORY OF PRESENT ILLNESS: Ms. Kendra Pate is a 76-year-old, female with a medical history of osteoarthritis, IBS, anemia and thrombocytopenia who now presents for a temporary left total knee. On 09/29/2016, she had a total left knee arthroplasty by Dr. Muñiz and started developing signs of infection and on 10/28/2016 had an I D of the infected left knee with exchange and implantation of impregnated beads of tobramycin and vancomycin. At that time, Dr. Crystal was following and started her on IV vancomycin and oral Rifampin. She went to [facility] for rehabilitation and she has been doing physical therapy walking with a walker. The left knee dressing changes were twice a day. Upon assessment, there is still purulent foul-smelling drainage. She denies any fever but states she does have night sweats. No nausea, vomiting or diarrhea. No constipation. She states that her urine and her stools are red. Apparently, she had to have a unit of packed red blood cells at the [facility] yesterday. She states that there is a medication that causes her urine and her stool to be red which could be rifampin but given her history of anemia and needing blood, we will do anemia labs and check a stool for blood. Also Dr. Calvin has been consulted by Dr. Muñiz and Dr. Crystal has been reconsulted. PAST MEDICAL HISTORY: Osteoarthritis. Irritable bowel syndrome. Thrombocytopenia. Anemia. PAST SURGICAL HISTORY: On 09/29/2016, left total knee arthroplasty. 10/28/2016, I and D of the left knee. She has had a section, partial hysterectomy and bladder tack. FAMILY HISTORY: Noncontributory. SOCIAL HISTORY: Denies tobacco, alcohol or illicit drug use. She is currently in [facility] and ambulates with a walker and physical therapy. ALLERGIES: Morphine. HOME MEDICATIONS: They have not been verified by the nursing staff yet but she is on IV vancomycin and oral rifampin. REVIEW OF SYSTEMS: Fourteen point review of systems were complete and all were negative except for those mentioned above HPI. She does complain of an 8/10 on the left knee pain. PHYSICAL EXAMINATION: Vital Signs: Temperature 98.1 degrees, heart rate 83, respiratory rate 18, blood pressure 157/59 and 208 pounds. General: Ms. Kendra Pate is a 76-year-old, female. She is in no acute distress. She is able to answer questions mostly appropriately. HEENT: Atraumatic, normocephalic. Pupils equal, round, reactive to light. Extraocular movements intact. Mucous membranes dry. Neck: No JVD or carotid bruits noted. Cardiovascular: Regular rate and irregular beats noted. No rubs, gallops, or murmurs. Pulmonary: Clear to auscultate bilateral breath sounds. No accessory muscle use or work of breathing noted. Abdomen: Soft, nontender, and nondistended. Positive bowel sounds x4. Extremities: Trace nonpitting edema in the lower extremities. She has +2 dorsalis pedal pulse and +2 radial pulses. Equal. Strength in the lower extremities. Skin: Warm and dry, intact except for incisional area of the left knee which has purulent foul-smelling drainage with an Gigi wrap and gauze. Neurologic: Oriented x4 and moves all extremities equally. LABORATORY DATA: White blood cells 5000, hemoglobin 9.5, hematocrit 29.5, and platelet count 216,000. Sodium 142, potassium 3.0, BUN 7 creatinine is 0.5 glucose 97, calcium 9.0, magnesium 1.6 iron 95, total iron binding capacity is 190. Saturation is 50%. Unsaturated iron binding is 95. Ferritin 522. Vitamin B12 831. Folate is 8.2. IMAGING: Chest x-ray showed interval placement of the right PICC line. No acute findings. ASSESSMENT AND PLAN: 1. MRSA infection of the left knee and surgical site status post left knee total arthroplasty and status post I and D of the left knee. We will continue IV vancomycin and p.o. Rifampin. Dr. Crystal has been reconsulted. She does deny fevers but states that she has nocturnal sweats and there is purulent foul-smelling drainage coming from the left knee incision site. She is afebrile with a temperature of 98.1 degrees. 2. Anemia, questionable if it is acute blood loss. She does state that she has red stools but she feels this is from medication. Either way, we are going to do a stool sample for occult blood. She does have a current type and screen. If blood is needed, apparently she had 1 unit of packed red blood cells given to her either yesterday or the day before. 3. History of thrombocytopenia which Dr. Castro had been following her for. Her platelet count has normalized to 216. 4. Hypertension. Patient states she does not have hypertension but it appears that she does. We will monitor closely and add medications as needed. 5. Osteoarthritis. 6. Irritable bowel syndrome. Apparently, this has been stable. 7. Deep venous thrombosis prophylaxis It looks like she has been on Arixtra. We will do SCD's and Juan Manuel's. Dictated by CHARISSA Gutierrez for Itz Burgess MD cc: CHARISSA Gutierrez MD Joe T. Sharp, MD
[2016-11-07] MEDS: VANCOMYCIN 2.4 GM in NS 500 ML IV SCH (02:13)
[2016-11-07 06:28] LABS: MANUAL DIFF NEEDED? NO
[2016-11-07 06:42] LABS: INR 1.11; PROTIME 11.7 Seconds (9.2-11.7); PTT 32.5 Seconds (22.0-36.0)
[2016-11-07 06:43] LABS: BASO% 0.2 % (0.0-0.8); EOS# 0.05 X1000 (0.0-0.7); EOS% 1.1 % (0.0-10.0); HEMOGLOBIN 9.6 g/dL (12.0-16.0); LYMPH# 2.48 X1000 (1.2-3.4); MCH 33.2 PG (27-31); MCV 103.8 FL (81-99); MONO# 0.42 X1000 (0.11-0.59); MONO% 9.5 % (1.7-9.3); MPV 10.7 FL (7.4-10.4); NEUT% 33.2 % (42.2-75.2); PLT 219 X1000 (130-400); RBC 2.89 XMIL (4.2-5.4)
[2016-11-07 07:02] LABS: AGAP 14; ALBUMIN 2.8 g/dL (3.5-5.0); ALKALINE PHOSPHATASE 139 U/L (32-104); BUN 6 mg/dL (8-22); CALCIUM 9.3 mg/dL (8.8-10.2); CHLORIDE 101 mmol/L (98-107); COSMO 281; GOT 19 U/L (10-30); GPT 11 U/L (10-36); MAGNESIUM 1.7 mg/dL (1.5-2.7); POTASSIUM 3.2 mmol/L (3.5-5.1); SODIUM 142 mmol/L (136-145); TCO2 27 mmol/L (25-35); TOTAL BILIRUBIN 0.92 mg/dL (0.20-1.00); TOTAL PROTEIN 6.1 g/dL (6.3-8.3)
[2016-11-07] MEDS: PRILOSEC PO SCH (09:00)
[2016-11-07] MEDS: FOLIC ACID PO SCH (09:00)
[2016-11-07] MEDS: RIFAMPIN PO SCH (09:00)
[2016-11-07] MEDS ORDERED: DILAUDID IV PRN (10:56)
[2016-11-07] MEDS ORDERED: DURAMORPH ONE (11:55)
[2016-11-07] MEDS ORDERED: VANCOMYCIN ONE (11:56)
[2016-11-07] MEDS ORDERED: TORADOL ONE (11:56)
[2016-11-07] MEDS ORDERED: SENSORCAINE 0.25%/EPI 1:200,000 ONE (11:56)
[2016-11-07] MEDS ORDERED: SODIUM CHLORIDE 0.9% ONE (11:57)
[2016-11-07] MEDS ORDERED: CYKLOKAPRON 1,000 MG/NS 1,000 MG/100 ML IVPB ONE (11:57)
[2016-11-07] MEDS ORDERED: EXPAREL 1.3% ONE (11:58)
[2016-11-07] MEDS ORDERED: NEOSPORIN G.U. IRRIGANT ONE ×3 (11:59→14:43)
[2016-11-07] MEDS ORDERED: TOBRAMYCIN POWDER MISC ONE (12:00)
[2016-11-07] MEDS ORDERED: TOBRAMYCIN MISC ONE (12:15)
[2016-11-07] MEDS ORDERED: DIPRIVAN 1% ONE (12:36)
[2016-11-07] MEDS ORDERED: FENTANYL ONE ×2 (12:36→15:43)
[2016-11-07] MEDS ORDERED: XYLOCAINE-MPF 2% ONE (12:38)
[2016-11-07] MEDS ORDERED: QUELICIN (DOSE) ONE (12:51)
[2016-11-07] MEDS ORDERED: SODIUM CHLORIDE 0.9% 10 ML ONE (12:52)
[2016-11-07] MEDS ORDERED: NORCURON ONE (12:52)
--- NOTE | 2016-11-07 12:52 | PROGRESS NOTE ---
DATE: 11/07/2016 SUBJECTIVE: Patient is NPO for her surgery today and she is complaining of pain in the left knee. Denies any fever or chills. Denies any shortness of breath or chest pain. OBJECTIVE: Vital Signs: Temperature 98.4 degrees, heart rate 71, respiratory rate 18, blood pressure 159/68, O2 saturation 97% on room air. General Examination: This is a 76-year-old female lying in bed, in no acute distress. HEENT: Head is normocephalic, atraumatic. Anicteric sclerae and pale conjunctivae. Mucous membranes moist. Neck: Supple. No JVD noted. No carotid bruits. No lymphadenopathy. No thyromegaly. Cardiovascular: S1, S2 heard. No murmurs, gallops, or rubs. Regular rate and rhythm. Respiratory: Clear bilaterally to auscultation. No work of breathing or using accessory muscles. Abdomen: Soft , nontender to palpation. Bowel sounds present. No organomegaly. Extremities: 2+ pitting edema in both lower extremities and the left knee has purulent foul-smelling drainage with an Gigi wrap and gauze. Neurologic: Patient alert and oriented x3. Moves 4 extremities. ASSESSMENT AND PLAN: 1. Methicillin-resistant Staphylococcus aureus infection of the left knee. The patient recently underwent irrigation and debridement of a MRSA infection of the left total knee arthroplasty. They did an exchange of the polyethylene insert and they did an implantation with antibiotic impregnated beads but unfortunately this patient is still having some drainage so she was admitted for surgery. Dr. Crystal from infectious disease has been consulted. Currently this patient is on vancomycin and rifampin. We will continue with the same management. She is not developing any fevers and white cell count is within normal limits. We will continue with the same management. 2. Anemia most likely of chronic disease. Patient did not show any signs of GI bleeding. The patient reports having had problems with anemia that has been worked up by Hematology. Also she had severe thrombocytopenia. At this time, she had a hemoglobin 9.6 with normal platelets. At this point, we are going to continue checking CBC daily. 3. Hypertension stable. We will continue with the same management. 4. Osteoarthritis. Aware. 5. Irritable bowel syndrome, stable. 6. Deep vein thrombosis prophylaxis. Will do SCDs and TEDs while this patient has surgery. cc: Itz Burgess MD [facility]
[2016-11-07 13:58] LABS: URINE MICRO REVIEW NEEDED? NO; URINE SOURCE CATH
[2016-11-07 14:05] LABS: BILIRUBIN URINE NEGATIVE (NEGATIVE); BLOOD URINE NEGATIVE (NEGATIVE); COLOR YELLOW; GLUCOSE URINE NEGATIVE (NEGATIVE); LEUKOCYTES URINE NEGATIVE (NEGATIVE); NITRITE URINE NEGATIVE (NEGATIVE); PH URINE 6.5; PROTEIN URINE NEGATIVE (NEGATIVE); SP GRAVITY URINE 1.008; TURBIDITY URINE CLEAR (CLEAR); UROBILINOGEN URINE NORMAL (NORMAL)
[2016-11-07 14:06] LABS: UR EPITHELIAL CELLS <10 /HPF (<10); URINE BACTERIA NEGATIVE /HPF; URINE RBC <10 /HPF (<10); URINE WBC <10 /HPF (<10)
[2016-11-07] MEDS ORDERED: DECADRON ONE (14:11)
[2016-11-07] MEDS ORDERED: ZOFRAN ONE (14:12)
[2016-11-07] MEDS ORDERED: NS 1,000 ML ONE (16:07)
[2016-11-07] MEDS: DILAUDID ONE ×4 (16:09→16:23)
[2016-11-07] MEDS ORDERED: MARCAINE 0.5% ONE (16:26)
[2016-11-07] MEDS ORDERED: DILAUDID PCA VIAL ONE (16:42)
[2016-11-07] MEDS ORDERED: LR 1,000 ML IV SCH (16:45)
[2016-11-07] MEDS ORDERED: NARCAN IV PRN (16:45)
[2016-11-07] MEDS ORDERED: DILAUDID PCA VIAL IV PRN (16:45)
[2016-11-07] MEDS ORDERED: ZOFRAN IV PRN (16:45)
[2016-11-07] MEDS ORDERED: PHENERGAN IV PRN (16:45)
[2016-11-07] MEDS ORDERED: SODIUM CHLORIDE 0.9% INJ PRN (16:45)
[2016-11-07] MEDS ORDERED: KLOR-CON PO ONE (17:23)
--- NOTE | 2016-11-07 18:13 | OPERATIVE NOTE ---
PROCEDURE DATE: 11/07/2016 PREOPERATIVE DIAGNOSIS: Infected left total knee arthroplasty. POSTOP DIAGNOSIS: Infected left total knee arthroplasty. PROCEDURE: 1. Removal infected total knee arthroplasty. 2. Irrigation and debridement and placement of a temporary femoral component and tibial component. 3. Placement of antibiotic beads. ANESTHESIA: General. SURGEON: Dhruv Muñiz MD. EDGE BLACKER: Vic. COMPLICATIONS: None. BLOOD LOSS: Minimal. TOURNIQUET TIME: Approximately an hour and a half. DESCRIPTION OF PROCEDURE: The patient brought to operative suite and placed in supine position. After successful administration of general anesthesia, a well-padded tourniquet was placed on left proximal thigh. The left lower extremity was prepped and draped in usual sterile fashion. The tourniquet was insufflated to 350 torr. Using the previous longitudinal incision it was dissected sharply through skin and then through the previous medial arthrotomy. The cultures were obtained and then the tibial insert was removed with an osteotome then the femoral component was removed with the osteotome and oscillating saw. The tibial component was removed with a osteotome and oscillating saw as well and then all cement was removed. The patellar component was removed with oscillating saw and then the pegs were drilled out. Once all the cement and necrotic tissue was debrided the knee was copiously irrigated. It was sized to a size 6 femoral component. We used a 20 mm Attune rotating platform that we planned on cementing to the tibia loosely as a temporary prosthesis. Once the knee was completely debrided and copiously irrigated the cement beads were placed in the femoral and tibial canal and then the femoral component was loosely cemented to the femur. The tibial insert rotating platform was loosely cemented to the tibia and the knee was held in extension until the cement had hardened, excess cement was removed with a [place]. The drain was placed in the knee and then more antibiotic beads in the joint. The arthrotomy was closed with a running 0 V-Loc suture and then more beads were placed in subcuticular and the skin edges were approximated with interrupted nylon sutures. A sterile dressing and a knee immobilizer were applied. The patient tolerated the procedure well without complication. At the end the procedure, all counts correct. The patient was transferred to the recovery room in stable condition. cc: MD Itz Shafer MD
[2016-11-07] MEDS: PERIDEX MT SCH (21:48)
[2016-11-08] MEDS: VANCOMYCIN 2.4 GM in NS 500 ML IV SCH (01:45)
[2016-11-08] MEDS: NS 1,000 ML IV SCH ×2 (01:45→20:25)
[2016-11-08 05:29] LABS: BASO% 0.2 % (0.0-0.8); EOS# 0.05 X1000 (0.0-0.7); EOS% 0.8 % (0.0-10.0); HEMATOCRIT 26.1 % (37.0-47.0); HEMOGLOBIN 8.1 g/dL (12.0-16.0); LYMPH# 2.74 X1000 (1.2-3.4); LYMPH% 41.5 % (20.5-51.1); MANUAL DIFF NEEDED? NO; MCH 33.1 PG (27-31); MCV 106.5 FL (81-99); MONO# 0.78 X1000 (0.11-0.59); MONO% 11.8 % (1.7-9.3); MPV 10.5 FL (7.4-10.4); NEUT% 45.7 % (42.2-75.2); PLT 194 X1000 (130-400); RBC 2.45 XMIL (4.2-5.4)
[2016-11-08 05:53] LABS: AGAP 12; BUN 10 mg/dL (8-22); CALCIUM 8.8 mg/dL (8.8-10.2); CHLORIDE 103 mmol/L (98-107); COSMO 281; SODIUM 141 mmol/L (136-145); TCO2 26 mmol/L (25-35)
[2016-11-08] MEDS: PRILOSEC PO SCH (09:42)
[2016-11-08] MEDS: PERIDEX MT SCH ×2 (09:43→20:25)
[2016-11-08] MEDS: RIFAMPIN PO SCH (09:43)
[2016-11-08] MEDS: FOLIC ACID PO SCH (09:43)
[2016-11-08 10:14] LABS: RETIC% 3.86 % (0.8-2.1); RETIC-HE 42.4 PG (28.2-36.6)
--- NOTE | 2016-11-08 12:34 | PROGRESS NOTE ---
DATE: 11/08/2016 SUBJECTIVE: Patient reports feeling fine after the procedure. Mild pain around the surgical area but definitely controlled by pain medications that she is receiving here. OBJECTIVE: Vital Signs: Temperature 98.7 degrees, heart rate 88, respiratory rate 22, blood pressure 124/56, O2 saturation 100% on 2 L nasal cannula. General: This is a 76-year-old female lying in bed, in no acute distress. HEENT: Head is normocephalic, atraumatic. Anicteric sclerae and pale conjunctivae. Mucous membranes moist. Neck: Supple. No JVD noted. No carotid bruit. No lymphadenopathy. No thyromegaly. Cardiovascular: S1, S2 heard. No murmurs, gallops, or rubs. Regular rate and rhythm. Respiratory: Clear bilaterally to auscultation. No work of breathing or using accessory muscles. Abdomen: Soft , nontender to palpation. Bowel sounds present. No organomegaly. Extremities: Left knee with knee immobilizer. There is 2+ pitting edema in both lower extremities. Neurological : Patient alert and oriented x3. Moves 4 extremities. LABORATORY DATA: White cell count 6.6, hemoglobin 8.1, hematocrit 26.1, platelets 194,000. BMP unremarkable. ASSESSMENT AND PLAN: 1. 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 Dr. Muñiz from orthopedic surgery has taken this patient to the OR and they performed the procedure as mentioned before. Right now this patient is stable, not complaining of too much pain. Denies any fever or chills. Dr. Crystal from infectious disease is following this patient as well and he has started this patient on vancomycin and rifampin. Will continue with the same management. 2. Anemia most likely of chronic disease. The hemoglobin has dropped a little bit most likely because of recent surgery. We are going to continue checking CBC. 3. Hypertension. Blood pressure is definitely under control. We will continue with the same management. 4. Osteoarthritis. Aware. 5. Irritable bowel syndrome, stable. 6. Deep vein thrombosis prophylaxis with SCDs, TEDs. cc: Itz Burgess MD [facility]
--- NOTE | 2016-11-08 12:59 | PROGRESS NOTE ---
DATE: 11/08/2016 SUBJECTIVE: Ms. Flor is resting in bed this morning. She has complaining of a little bit of pain in the knee. OBJECTIVE: Left lower extremity exam: Dressing is clean, dry, and intact. Hemovac is in place as well and brace is in place. She has good dorsiflexion and plantar flexion of the foot and ankle. Good sensation to light touch to the toes as well. ASSESSMENT: Status post left knee hardware removal and placement of antibiotic spacer. PLAN: Ms. Flor continue on vancomycin and rifampin per Dr. Crystal' request. She will continue to work with therapy. We will continue to monitor. cc: MD Itz Morgan MD
[2016-11-08] MEDS: BENADRYL IV PRN (20:38)
[2016-11-09] MEDS: VANCOMYCIN 2.4 GM in NS 500 ML IV SCH (00:18)
[2016-11-09] MEDS: BENADRYL IV PRN (05:31)
[2016-11-09 06:42] LABS: BASO% 0.5 % (0.0-0.8); EOS# 0.04 X1000 (0.0-0.7); EOS% 0.9 % (0.0-10.0); HEMATOCRIT 22.7 % (37.0-47.0); LYMPH# 2.07 X1000 (1.2-3.4); LYMPH% 46.8 % (20.5-51.1); MANUAL DIFF NEEDED? NO; MCHC 30.8 g/dL (33-37); MCV 107.1 FL (81-99); MONO# 0.49 X1000 (0.11-0.59); MONO% 11.1 % (1.7-9.3); MPV 10.8 FL (7.4-10.4); NEUT% 40.7 % (42.2-75.2); PLT 114 X1000 (130-400); RBC 2.12 XMIL (4.2-5.4)
[2016-11-09 07:09] LABS: CALCIUM 9.2 mg/dL (8.8-10.2); POTASSIUM 3.3 mmol/L (3.5-5.1)
[2016-11-09] MEDS: PERIDEX MT SCH ×3 (07:55→21:07)
[2016-11-09] MEDS: RIFAMPIN PO SCH ×2 (07:56→08:00)
[2016-11-09] MEDS: PRILOSEC PO SCH ×2 (07:56→08:00)
[2016-11-09] MEDS: FOLIC ACID PO SCH ×2 (07:56→08:00)
[2016-11-09] MEDS ORDERED: NS 500 ML IV SCH (12:00)
--- NOTE | 2016-11-09 12:40 | PROGRESS NOTE ---
DATE: 11/09/2016 SUBJECTIVE: Patient reports feeling fine. Pain is under control. No fever or chills reported. OBJECTIVE: Vital Signs: Temperature 97.9 degrees, heart rate 80, respiratory rate 20, blood pressure 147/50, O2 saturation 98% on 2 L nasal cannula. General Examination: This is a 76-year- old female lying in bed, in no acute distress. HEENT: Head is normocephalic, atraumatic. Anicteric sclerae and pale conjunctivae. Mucous membranes moist. Neck: Supple. No JVD noted. No carotid bruits. Cardiovascular: S1, S2 heard. No murmurs, gallops, or rubs. Regular rate and rhythm. Respiratory: Clear bilaterally to auscultation. No work of breathing or using accessory muscles. Abdomen: Soft. Nontender to palpation. Bowel sounds present. No organomegaly. Extremities: Left knee with knee immobilizer. There is 2+ pitting edema in both lower extremities. Neurological: Patient is alert and oriented x3. Moves 4 extremities. LABORATORY DATA: White cell count 4.42, hemoglobin 10.0, hematocrit 22.7, platelets 114,000. BMP unremarkable. Creatinine 1.3, potassium 3.3. ASSESSMENT AND PLAN: 1. 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 Dr. Muñiz from orthopedic surgery is following this patient. The patient denies any fever or chills. Patient has been seen by Dr. Crystal. Patient has been started on vancomycin and rifampin. We will continue with the same management. 2. Anemia of chronic disease and also after surgery the hemoglobin has dropped 1 point. Considering his history of chronic anemia and thrombocytopenia, we are going to transfuse 2 units of blood. 3. Hypertension. Blood pressure is under control. 4. Osteoarthritis. Aware. 5. Irritable bowel syndrome. Aware. Patient is on home medications. 6. Deep vein thrombosis prophylaxis with SCDs and TEDs. cc: Itz Burgess MD
[2016-11-09] MEDS: NS 1,000 ML IV SCH ×2 (13:19→13:21)
--- NOTE | 2016-11-09 13:40 | PROGRESS NOTE ---
DATE: 11/09/2016 SUBJECTIVE: Ms. Pate is lying in bed this morning. Doing fairly well. She did not have any issues overnight. OBJECTIVE: Left lower extremity exam. Dressing is still clean, dry and intact. Brace is in place as well. She has good dorsiflexion and plantar flexion of the foot and good sensation to light touch to all the toes and good capillary refill to all the toes. ASSESSMENT: Status post removal infected total knee arthroplasty and placement of spacer. PLAN: Ms. Pate is still on antibiotics per Dr. Crystal' recommendation. Her most recent cultures have not grown anything from the OR the other day but she before that grew MRSA. cc: MD Itz Morgan MD
[2016-11-09] MEDS: DILAUDID IV PRN ×2 (17:23→21:55)
--- NOTE | 2016-11-09 17:43 | PROGRESS NOTE ---
DATE: 11/09/2016 SUBJECTIVE: Kendra Pate is a 76-year-old female who is postoperative day 2 from a I and D of her left knee. She has no new complaints today. PHYSICAL EXAMINATION: Reveals well-developed, well-nourished female. She is alert, oriented and cooperative exam. Her dressing is clean, dry, intact. Her foot is neurovascularly intact. She has had minimal output from her drain. Her hematocrit is 22 but she is getting 2 units of blood. ASSESSMENT: Stable after left knee irrigation, debridement. 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 Hopefully she can walk tomorrow and maybe let her go to rehab in the middle of the week sometime. cc: MD Itz Shafer MD
[2016-11-09] MEDS: NORCO-10 PO PRN (19:06)
[2016-11-10] MEDS: VANCOMYCIN 2.4 GM in NS 500 ML IV SCH (00:51)
[2016-11-10] MEDS: NORCO-10 PO PRN ×5 (01:09→21:00)
[2016-11-10] MEDS: DILAUDID IV PRN ×2 (01:16→09:44)
[2016-11-10 06:11] LABS: MANUAL DIFF NEEDED? NO
[2016-11-10 06:23] LABS: BASO% 0.2 % (0.0-0.8); EOS# 0.08 X1000 (0.0-0.7); EOS% 1.6 % (0.0-10.0); HEMATOCRIT 29.1 % (37.0-47.0); HEMOGLOBIN 9.6 g/dL (12.0-16.0); LYMPH# 2.04 X1000 (1.2-3.4); LYMPH% 40.3 % (20.5-51.1); MCH 32.5 PG (27-31); MCV 98.6 FL (81-99); MONO# 0.56 X1000 (0.11-0.59); MONO% 11.1 % (1.7-9.3); NEUT% 46.8 % (42.2-75.2); PLT 119 X1000 (130-400); RBC 2.95 XMIL (4.2-5.4)
[2016-11-10 06:50] LABS: CALCIUM 9.8 mg/dL (8.8-10.2)
--- NOTE | 2016-11-10 07:38 | PROGRESS NOTE ---
DATE: 11/10/2016 SUBJECTIVE: The patient recently underwent irrigation and debridement of a methicillin-resistant Staph aureus infected left total knee arthroplasty. A temporary appliance was put in and there are antibiotic impregnated beads. It should be noted that the patient's creatinine is slowly increasing, today it was 1.4. MEDICATIONS: The patient is on vancomycin and rifampin. PHYSICAL EXAMINATION: Vital Signs: Temperature is 97.4 degrees, pulse 80, respirations 16 and blood pressure 178/70. General: This is an obese elderly female who is in no acute distress. Lungs: Clear to auscultation. Cardiovascular: Heart rate is regular. Abdomen: Soft and nontender. Extremities: There is a large dressing on the left knee and she is wearing a large splint. The dressing is intact. There is no visible erythema. The patient has a PICC in her right arm. The site is not erythematous or swollen. LABORATORY AND X-RAY: There is no new x-ray today. The patient's blood cultures and left knee cultures remain negative. The patient's creatinine is at 1.4. The GFR is down to 37. CBC shows a white count of 5060, hemoglobin 9.6, and platelet count 119,000. ASSESSMENT AND PLAN: Since the patient's creatinine is increasing and her GFR is decreasing, I have discontinued the vancomycin and instead placed the patient on daptomycin. Rifampin already is being received because there are foreign structures in the patient's knee. My plan now is to treat for 6 weeks with a combination of daptomycin and rifampin. The patient's comorbidities include the following. She is obese and also she is elderly. She has previously had knee surgery. She has underlying osteoarthritis. cc: MD Itz Canela MD
[2016-11-10] MEDS: PRILOSEC PO SCH (08:37)
[2016-11-10] MEDS: ARIXTRA SUBQ SCH (08:39)
[2016-11-10] MEDS: RIFAMPIN PO SCH (08:39)
[2016-11-10] MEDS: CUBICIN 500 MG in NS 100 ML IV SCH (08:39)
[2016-11-10] MEDS: FOLIC ACID PO SCH (08:39)
[2016-11-10] MEDS: PERIDEX MT SCH ×2 (08:40→20:08)
[2016-11-10] MEDS ORDERED: POTASSIUM CHLORIDE 60 MEQ in NS 500 ML IV ONE (08:54)
--- NOTE | 2016-11-10 11:18 | PROGRESS NOTE ---
DATE: 11/10/2016 SUBJECTIVE: Patient reports 1 episode of nausea after she takes 1 pain pill. Otherwise pain is under control. No fever or chills reported. OBJECTIVE: Vital Signs: Temperature 97.8 degrees, heart rate 75, respiratory rate 16, blood pressure 161/73. O2 saturation 95% on room air. General Examination: This is a 76-year-old female lying in bed, in no acute distress. HEENT: Head is normocephalic, atraumatic. Anicteric sclerae and pale conjunctivae. Mucous membranes moist. Neck: Supple. No JVD noted. No carotid bruits. No lymphadenopathy. Cardiovascular: S1, S2 heard. No murmurs, gallops, or rubs. Regular rate and rhythm. Respiratory: Clear bilaterally to auscultation. No work of breathing or using accessory muscles. Abdomen: Soft, nontender to palpation. Bowel sounds present. No organomegaly. Extremities: Knee immobilizer. 2+ pitting edema in both lower extremities. Neurological: Patient is alert and oriented x3. Moves 4 extremities. LABORATORY DATA: White cell count 5.06, hemoglobin 9.6, hematocrit 29.1, platelets 119,000 with BMP remarkable for creatinine 1.4 and potassium 3.0. ASSESSMENT AND PLAN: 1. 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 from Orthopedic Surgery is following this patient. He evaluated this patient today and he thinks that this patient can be discharged during this week in the middle. He is following this patient on a daily basis. Also because of this infection, Dr. Crystal is also following this patient. Initially he was started on vancomycin and rifampin, but because of recent renal dysfunction, vancomycin has been changed for daptomycin. Will complete according to him 6 weeks of antibiotics. 2. Anemia of chronic disease. Hemoglobin has dropped to 7.0 yesterday so we decided to transfuse 2 units of blood and now hemoglobin is back to baseline. 3. Hypertension. Blood pressure is under control. 4. Osteoarthritis aware. 5. Irritable bowel syndrome aware. Patient uses home medications. 6. Deep vein thrombosis prophylaxis. Patient is on SCDs and TEDs. 7. Hypokalemia. We are going to replete potassium accordingly. cc: Itz Burgess MD
[2016-11-10] MEDS ORDERED: CALMOSEPTINE OINTMENT TOP PRN (12:18)
--- NOTE | 2016-11-10 14:16 | PROGRESS NOTE ---
DATE: 11/10/2016 SUBJECTIVE: Ms. Pate reports that she is doing well overall today. She continues to have pain in her left leg and is status post knee replacement and now with an infection in that leg. OBJECTIVE: Vital Signs: Temperature 97.8 degrees, heart rate 81, respirations 16, blood pressure 151/61, O2 saturation 99% on room air. LABS: White blood cells 5.06, hemoglobin 9.6, hematocrit 29.1, platelets 119, 000. Sodium 143, potassium 3.0, chloride 105, CO2 24, BUN 14, creatinine 1.4, glucose 111. PHYSICAL EXAM: CV: S1, S2 heard without any murmurs, gallops, rubs appreciated. Respiratory: Chest clear to auscultation bilaterally. Normal respiratory effort. Gastrointestinal: Abdomen is obese. Positive bowel sounds. Nontender. Extremities: Patient's left lower extremity is wrapped and has a brace around it. Bandaging has some evidence of some blood on the outside though the bandage is not saturated. Right lower extremity is unremarkable. 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 We have been monitoring this closely. She did receive 2 units of packed red blood cells yesterday. Her hemoglobin improved to 9.6. Patient previously had a negative Deep test. Flow cytometry is negative for chronic lymphocytic leukemia or any underlying lymphoma previously as well. Continue to monitor LDH. Continue to transfuse as needed. 2. Thrombocytopenia. The patient's platelet count has now started to decline some. 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 She was on low-dose Arixtra as an outpatient. This has now been restarted. Continue to monitor closely. 3. Left knee replacement now status post removal of the infected total knee arthroplasty and irrigation debridement. Continue per Dr. Muñiz. The patient is also on IV antibiotics per Infectious Disease. 4. Folic acid deficiency. Patient to continue folic acid. 5. [place] gammopathy of undetermined significance. This may continue to be monitored annually. 6. Hypokalemia. This has been repleted. Dictated by IAN Alejandre for Asiya Castro MD cc: MD Itz Rosales MD I have seen and examined the patient and agree with the above A/P. Asiya Castro MD. [facility]
--- NOTE | 2016-11-10 17:00 | PROGRESS NOTE ---
DATE: 11/10/2016 SUBJECTIVE: Ms. Pate is a 76-year-old female who is postoperative day 3 from an I and D of her left knee. She has no new complaints today. OBJECTIVE: General: She is a well-developed, well-nourished female. She is alert, oriented, and cooperative with the examination. She is in no acute distress. Extremities: Her dressing is clean, dry, and intact. Foot is neurovascularly intact. Her calf is soft. ASSESSMENT: Postoperative day 3 from her left knee irrigation and debridement. PLAN: We will have her continue working with physical therapy. She can be transferred to rehab later this week. Dictated by IAN Rivera for Dhruv Muñiz MD cc: IAN Rivera MD Cesar Garcia-Rodriguez, MD
[2016-11-11] MEDS: NORCO-10 PO PRN ×4 (01:34→19:15)
[2016-11-11 05:57] LABS: MANUAL DIFF NEEDED? NO
[2016-11-11 06:02] LABS: BASO% 0.2 % (0.0-0.8); EOS# 0.03 X1000 (0.0-0.7); EOS% 0.5 % (0.0-10.0); HEMATOCRIT 29.9 % (37.0-47.0); HEMOGLOBIN 9.9 g/dL (12.0-16.0); IMM GRAN# 0.02 X1000 (0.0-0.04); IMM GRAN% 0.4 % (0.0-0.5); LYMPH# 2.64 X1000 (1.2-3.4); LYMPH% 47.2 % (20.5-51.1); MCHC 33.1 g/dL (33-37); MCV 99.7 FL (81-99); MONO# 0.57 X1000 (0.11-0.59); MONO% 10.2 % (1.7-9.3); MPV 11.1 FL (7.4-10.4); NEUT% 41.5 % (42.2-75.2); PLT 152 X1000 (130-400)
[2016-11-11 06:28] LABS: CALCIUM 10.4 mg/dL (8.8-10.2); POTASSIUM 3.3 mmol/L (3.5-5.1)
--- NOTE | 2016-11-11 08:02 | PROGRESS NOTE ---
DATE: 11/11/2016 SUBJECTIVE: Ms. Pate is a 76-year-old female, who is postoperative day 4 from an I and D of her left knee. She has no new complaints. OBJECTIVE: She is a well-developed, well-nourished female. She is alert, oriented and cooperative with the examination. Her wound is clean, dry, and intact without signs of infection. Calf is soft. Her left leg is neurovascularly intact. Her hemoglobin 9.9. Hematocrit is 29.9. Her creatinine is 1.4. ASSESSMENT: Postoperative day 4 from a left knee irrigation and debridement. PLAN: We will continue to monitor her creatinine, and we will have her continue working with physical therapy. She will more likely be transferred to rehab later. Dictated by IAN Rivera for Dhruv Muñiz MD cc: IAN Rivera MD Raphael K. Quansah, MD MTDD
[2016-11-11] MEDS: CUBICIN 500 MG in NS 100 ML IV SCH (08:29)
[2016-11-11] MEDS: RIFAMPIN PO SCH (08:30)
[2016-11-11] MEDS: PRILOSEC PO SCH (08:30)
[2016-11-11] MEDS: FOLIC ACID PO SCH (08:31)
[2016-11-11] MEDS: ARIXTRA SUBQ SCH (08:32)
[2016-11-11] MEDS: PERIDEX MT SCH ×2 (08:51→19:32)
[2016-11-11] MEDS: ZOFRAN IV PRN ×2 (08:51→19:32)
--- NOTE | 2016-11-11 14:57 | PROGRESS NOTE ---
DATE: 11/11/2016 PRESENT ILLNESS: The patient is status post debridement of a methicillin- resistant Staph aureus infected right total knee arthroplasty. A temporary appliance has been put in along with antibiotic impregnated beads. The patient has been having nausea and vomiting. MEDICATIONS: Patient is on a combination of daptomycin and rifampin. PHYSICAL EXAMINATION: Vital Signs: Temperature is 98.3 degrees, pulse 75, respirations 12, blood pressure 169/77. General: This is an obese, elderly female. She today has told me that she has been having nausea for many days and in the past 1-2 days she has been having vomiting. Lungs: Clear to auscultation. Cardiovascular: Regular heart rate. Abdomen: Soft and nontender. Extremities: There is a large dressing on the patient's right knee. There is no visible erythema and there is no discoloration of the dressing. The patient has a PICC in her right arm and that site is not erythematous or swollen. LAB AND X-RAY: CBC today showed a white count of 5590, hemoglobin 9.9, and platelet count 152,000. Creatinine is 1.4. The GFR is 37. ASSESSMENT AND PLAN: As regarding the patient's infected total knee arthroplasty, I am going to continue daptomycin. In view of the patient's nausea and vomiting I am going to discontinue rifampin in case it is causing that. COMORBIDITIES: Include being elderly, being obese, and having had previous knee surgery, and also having underlying osteoarthritis. cc: MD John Canela MD MTDD
--- NOTE | 2016-11-11 16:28 | PROGRESS NOTE ---
DATE: 11/11/2016 SUBJECTIVE: Today Ms. Pate referred to be doing fine. She has been having some vomiting. According to her, whenever she takes her pills she just throws up and food does not taste good at all for her. OBJECTIVE: Vital signs: Blood pressure is 182/72, pulse of 97, respirations 16 and temperature 97.6 degrees. General: Ms. Pate is a 76-year-old female. She is in bed, not in any distress. HEENT: Mucosa is pink and moist. Anicteric. Acyanotic. Neck: Supple. Chest: Clear. Cardiovascular: Regular rate and rhythm. Abdomen: Soft, distended, but nontender. Bowel sounds are present. Extremities: No pedal edema. The left knee is covered with sterile dressing. LABORATORY DATA: WBC is 5.59, hemoglobin is 9.9, platelet count of 152. Chemistry is also reviewed: Sodium is 143, potassium is 3.3, chloride is 1.4. ASSESSMENT: 1. Methicillin-resistant Staphylococcus aureus septic knee. The patient had knee replacement surgery somewhere in September. It got infected. Had it taken care of, but then it looks like it got reinfected. The last surgery that she had was on 11/07/2016 where removal of infected total knee arthroplasty was done. Irrigation and debridement, placement of a temporal femoral compartment and tibial compartment was also done by Dr. Muñiz. 2. Anemia of chronic disease. The patient has been transfused; hemoglobin and hematocrit is now stable. 3. Osteoarthritis, aware. 4. Nausea and vomiting, unsure. The etiology I think is probably medication related. We are going to put the patient on proton pump inhibitor and some Carafate. Reexamine her tomorrow. If she persists having symptoms, we will ask gastroenterology to evaluate her for possible endoscopy. cc: John Orellana MD MTDD
[2016-11-11] MEDS: CARAFATE LIQUID PO SCH ×2 (16:55→19:32)
[2016-11-12] MEDS: PERIDEX MT SCH ×2 (00:12→08:57)
[2016-11-12] MEDS: CARAFATE LIQUID PO SCH ×5 (00:13→17:09)
[2016-11-12] MEDS: NORCO-10 PO PRN ×3 (02:49→15:10)
[2016-11-12 07:05] LABS: CALCIUM 10.4 mg/dL (8.8-10.2); POTASSIUM 3.2 mmol/L (3.5-5.1)
--- NOTE | 2016-11-12 07:29 | Diag Imaging Result Doc PS360 ---
KUB ABDOMEN - 11/12/2016 INDICATION: abd pain/ NV TECHNIQUE: COMPARISON: 10/10/2016 FINDINGS: There is a nonobstructive bowel gas pattern. No free air or abdominal calcifications. IMPRESSION: No acute disease. Electronically signed by Jayant Whitfield 11/12/2016 7:27 AM
[2016-11-12] MEDS: FOLIC ACID PO SCH (08:56)
[2016-11-12] MEDS: CUBICIN 500 MG in NS 100 ML IV SCH (08:56)
[2016-11-12] MEDS: PRILOSEC PO SCH (08:56)
[2016-11-12] MEDS: ARIXTRA SUBQ SCH (08:57)
--- NOTE | 2016-11-12 08:58 | DISCHARGE SUMMARY ---
ADMISSION DATE: 11/06/2016 DISCHARGE DATE: 11/12/2016 DISCHARGE DIAGNOSIS: Left infected total knee arthroplasty status post removal of infected total knee arthroplasty,irrigation and debridement of the knee with placement of a temporary total knee arthroplasty and antibiotic beads. Acute blood loss anemia and anemia of chronic disease treated with 2 units of red blood cells and increased creatinine due to vancomycin DISCHARGE MEDICATIONS: See discharge medication list. DISPOSITION: Patient discharged to rehab with instructions for IV antibiotics per Dr. Matias Crystal. For any questions, please call him in his office. Instructed to return to see Dr. Muñiz next Thursday. He will remove the sutures. Do not remove the sutures at rehab. Dressing change to the left knee at least twice a day. The knee can be washed with gentle soap and water. HOSPITAL COURSE: On the day of admission, the patient underwent removal of her infected total knee, irrigation and debridement of her knee, and placement of a temporary total knee arthroplasty and antibiotic beads. Her postoperative course was unremarkable except for increased creatinine; therefore, we discontinued her vancomycin and put her on daptomycin per Dr. Matias Crystal. At discharge, she is afebrile, tolerating a regular diet, ambulating well with physical therapy. She did have acute blood loss anemia treated with transfusion x2. At discharge, she is afebrile tolerating a regular diet, ambulating well with physical therapy. Her wound is clean, dry, intact without sign of infection. She has some just some mild serous drainage. DISCHARGE INSTRUCTIONS: She is to return to see Dr. Muñiz next Thursday. Her weightbearing status is weightbearing as tolerated in the knee immobilizer when ambulating with a walker. She can also work on gentle range of motion of her knee. cc: MD John Shafer MD
--- NOTE | 2016-11-12 09:42 | PROGRESS NOTE ---
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 A temporary prosthesis has been put in along with antibiotic-impregnated beads. The nausea and vomiting that the patient was having has been cleared up following changes in the patient's medications. MEDICATIONS: Medications as far as antibiotics go reveal the patient is receiving daptomycin as a single agent. She was getting rifampin along with daptomycin, but it seems that when I stopped it the nausea got better. Therefore, I think it is responsible for the nausea, and I do not plan to use the rifampin any further. PHYSICAL EXAMINATION: Vital Signs: Temperature is 98.3 degrees, pulse 81, respirations 15, blood pressure 150/72. General: This is an obese, less ill-appearing elderly female in no acute distress. She is beginning to eat more. Lungs: Clear to auscultation. Cardiovascular: Heart rate is regular. Abdomen: Soft and nontender. Extremities: There is a dressing around the patient's left knee, which is intact, where she has just recently had surgery. There is no visible erythema. The incision is intact. There is no odor to it. The patient has a PICC present in the right arm. The PICC site itself is also not swollen or tender. No erythema or draining. LAB AND X-RAY: Creatinine is 1.4. GFR is 37. There is no new lab work, other than the creatinine and GFR. There is no radiographic study either for today. ASSESSMENT AND PLAN: The plan is to treat the patient with daptomycin for a complete 6-week treatment course. I am going to go ahead now and check a CPK to make sure it is not elevated, which could occur with daptomycin use. COMORBIDITIES: The patient's comorbidities include she has had multiple knee surgeries. She also has comorbidities that include she is elderly. She has had multiple knee surgeries. She has underlying osteomyelitis and she is obese. cc: MD John Canela MD
--- NOTE | 2016-11-12 12:43 | PROGRESS NOTE ---
DATE: 11/12/2016 SUBJECTIVE: Ms. Pate looks well. OBJECTIVE: Vital Signs: Temperature 97.6 degrees, heart rate 78, respirations 15, blood pressure 159/72, O2 saturations 95% on room air. LABORATORY: There is no new CBC today. Sodium 142, potassium 3.2, chloride 103 , CO2 of 26. BUN 18, creatinine 1.4, glucose 110. TSH 1.56. PHYSICAL EXAMINATION: CV: S1, S2 heard. No murmurs, gallops, rubs appreciated. Regular rate and rhythm. Respiratory: Chest clear to auscultation bilaterally. Normal respiratory effort. Gastrointestinal: Abdomen is obese. Soft nontender, nondistended, with positive bowel sounds. Extremities: Left leg with previous surgery. The surgical incision is intact and stitches are intact. Continues to heal well. ASSESSMENT AND PLAN: 1. Hemolytic anemia. The patient's latest labs have recently stabilized. She has some low level of ongoing hemolytic anemia. We will continue to monitor as an outpatient. 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 Platelet count at last check was actually improved at 1:52. Continue to monitor again as an outpatient. 3. Left knee total arthroplasty, status post infection and now with removal of the arthroplasty. Patient continues on IV antibiotics as per Infectious Disease. She will continue these per Dr. Crystal' recommendations. DISPOSITION: Patient is being discharged to rehab today. We will plan to see her in our office upon her discharge from rehab. Dictated by IAN Alejandre for Asiya Csatro MD cc: MD John Rosales MD I have seen and examined the patient and agree with the above A/P. Asiya ATKINSON
--- NOTE | 2016-11-12 13:53 | PROGRESS NOTE ---
DATE: 11/12/2016 ADDENDUM: The patient is going to a rehab facility today. I have written for the following orders. Daptomycin 500 mg IV daily for 3 weeks. CBC, creatinine, and CPK to be drawn every Thursday for 3 weeks. I have requested that the patient have an appointment with me in 3 weeks. I have ordered a CPK now and I have requested that the results be given to me as soon as possible. cc: MD John Canela MD
--- NOTE | 2016-11-12 15:50 | PROGRESS NOTE ---
DATE: 11/12/2016 SUBJECTIVE: Today Ms. Pate referred to be doing a lot better. Nausea and vomiting has resolved. No more epigastric discomfort. OBJECTIVE: Vital signs: Blood pressure is 155/79, pulse of 71, respirations 17, temperature 98.3 degrees. General Examination: Ms. Pate is a 76-year-old, female. She was in bed, not seemingly distress. HEENT: Mucosa is pink and moist. Anicteric. Acyanotic. Neck: Supple. Chest: Clear. Cardiovascular: Regular rate and rhythm. There are no murmurs, no rubs, no gallops. Abdomen: Soft, nontender. Extremities: No pedal edema. The left knee still continues to be covered with sterile dressing. LABORATORY DATA: WBC is 5.59, hemoglobin is 9.9, platelet count of 152,000. Chemistry is reviewed and unremarkable except for potassium of 3.2 replaced, and creatinine of 1.4 which is chronic. ASSESSMENT: 1. Methicillin-resistant Staphylococcus aureus septic knee. 2. Anemia of chronic disease status post packed red blood cells transfusion. 3. Osteoarthritis. 4. Nausea and vomiting resolved after the discontinuation of rifampin and initiation of PPI with Carafate. 5. In general, I think Ms. Pate is relatively stable from a medical standpoint. She can be discharged home. She is supposed to follow up in about a week or 2 with her primary care physician to recheck her electrolytes and follow up on her renal function. cc: John Orellana MD
[2016-11-12 16:25] VITALS: BP 142/81
== END 2016-11-12 17:28 ==
LOC: DIRADM 12:09 → 4N 12:26
PROVIDERS: ADMIT Internal Medicine; ATTEND Orthopaedic Surgery

== ENCOUNTER 2016-11-21 10:09 | Inpatient (IN) ==
[2016-11-21] MEDS ORDERED: NS 1,000 ML IV ONE (10:51)
--- NOTE | 2016-11-21 11:21 | Diag Imaging Result Doc PS360 ---
EXAM: CHEST-PORTABLE HISTORY: Palpitations TECHNIQUE: COMPARISON: 11/16/2016 FINDINGS: No change in the right-sided PICC line. The lungs are well expanded. The heart is not enlarged. The vessels are not distended. No pneumonia. No pleural effusions identified. There is a granuloma in the right costophrenic angle. IMPRESSION: No acute abnormality. Electronically signed by Tanner Anne 11/21/2016 11:18 AM
[2016-11-21 11:27] LABS: BASO% 0.3 % (0.0-0.8); EOS# 0.08 X1000 (0.0-0.7); EOS% 0.5 % (0.0-10.0); HEMATOCRIT 13.8 % (37.0-47.0); LYMPH# 4.68 X1000 (1.2-3.4); LYMPH% 30.4 % (20.5-51.1); MANUAL DIFF NEEDED? YES; MCH 33.9 PG (27-31); MCHC 30.4 g/dL (33-37); MCV 111.3 FL (81-99); MONO# 1.85 X1000 (0.11-0.59); MPV 11.2 FL (7.4-10.4); NEUT% 56.8 % (42.2-75.2); PLT 409 X1000 (130-400); RBC 1.24 XMIL (4.2-5.4)
[2016-11-21 11:34] LABS: ALBUMIN 3.1 g/dL (3.5-5.0); CALCIUM 8.5 mg/dL (8.8-10.2); MAGNESIUM 2.1 mg/dL (1.5-2.7); POTASSIUM 4.4 mmol/L (3.5-5.1); TOTAL BILIRUBIN 0.97 mg/dL (0.20-1.00); TOTAL PROTEIN 6.8 g/dL (6.3-8.3)
--- NOTE | 2016-11-21 11:44 | PROVIDER DOCUMENTATION ---
This chart was entered by Bhakti Regan Scribe, acting as scribe for Bobby Baires MD. HPI-General Adult - General Chief Complaint: General Adult Stated Complaint: ABDNORMAL LABS Time Seen by Provider: 11/21/16 10:31 Source: patient Allergies/Adverse Reactions: Patient Allergies Allergy/AdvReac Type Severity Reaction Status Date / Time morphine Allergy ITCHING Verified 11/21/16 10:52 Home Medications: Home Medication List Medication Instructions Recorded Confirmed Last Taken Type Aspirin 81 mg PO DAILY 11/08/16 11/16/16 11/15/16 10:00 History Multivitamin [Multivitamins] 1 each PO DAILY 11/08/16 11/16/16 11/15/16 10:00 History Acetaminophen [Tylenol] 650 mg PO Q6H PRN PRN #0 tablet 11/12/16 11/16/16 Unknown Rx Alprazolam [Xanax] 0.25 mg PO Q6H PRN PRN #30 tablet 11/12/16 11/16/16 Unknown Rx Folic Acid 1 mg PO DAILY tablet 11/12/16 11/16/16 11/15/16 10:00 Rx Fondaparinux [Arixtra] 2.5 mg SUBQ DAILY syr 11/12/16 11/16/16 11/15/16 10:00 Rx Hydrocodone/APAP 10 mg/325 mg 1 - 2 each PO Q4H PRN PRN #60 11/12/16 11/16/16 04:30 Rx [Joanna-10] tablet Menthol/Zinc Oxide Ointment 1 gm TOP PRN PRN #0 tube 11/12/16 11/16/16 Unknown Rx [Calmoseptine Ointment] Omeprazole [Prilosec] 40 mg PO DAILY capsule 11/12/16 11/16/16 11/16/16 06:30 Rx Ondansetron [Zofran] 4 mg IV Q4H PRN PRN #0 vial 11/12/16 11/16/16 Unknown Rx Sucralfate [Carafate Liquid] 1 gm PO Q6H udc 11/12/16 11/16/16 11/16/16 04:00 Rx Daptomycin 500 mg IV DAILY 11/16/16 11/16/16 11/15/16 10:00 History Magnesium Hydroxide [Milk of 30 ml PO DAILY PRN PRN 11/16/16 11/16/16 Unknown History Magnesia] Potassium Chloride 40 meq PO DAILY 11/16/16 11/16/16 11/15/16 08:00 History - History of Present Illness -Gen Adult Nature of Presenting Problems: Pt is a 76 year old female who was brought to the ED via EMS with a cc of low H and H. Pt had a recent infection in her left knee after knee replacement surgery. Pt is lethargic and tachycardic. Location of Pain/Injury: reports: generalized Pain Radiation: reports: no radiation Quality of Pain: reports: none Onset/Duration: reports: unsure Timing: reports: still present Context/Activities at Onset: reports: none Modifying Factors: improves with: nothing Associated Symptoms: reports: weakness, trouble walking Similar Symptoms Previously?: No Recently seen or treated by another doctor?: Yes Review of Systems - Adult - REVIEW OF SYSTEMS - ADULT Constitutional: denies: chills, fever Eyes: reports: no symptoms reported Ears, Nose, Mouth & Throat: denies: ear pain, nose pain Cardiovascular: reports: no symptoms reported Respiratory: reports: no symptoms reported Gastrointestinal: denies: abdominal pain, nausea, vomiting Genitourinary: reports: no symptoms reported Musculoskeletal: reports: no symptoms reported Integumentary: reports: no symptoms reported Neurological: reports: no symptoms reported Psychiatric: reports: no symptoms reported Endocrine: reports: no symptoms reported Hematologic/Lymphatic: reports: low blood count. denies: prolonged bleeding, transfusions Allergic/Immunologic: reports: no symptoms reported All Other Systems: Reviewed and Negative Past History - Adult - PAST MEDICAL HISTORY-ADULT Review of Records: reports: Old Records Reviewed, Nursing Assessment Review Major Childhood Illnesses: reports: denies history Cardiovascular: reports: denies history Respiratory: reports: sleep apnea Gastrointestinal: reports: GERD Obstetrical/Gynecological: reports: denies history Genitourinary: reports: denies history Musculoskeletal: reports: arthritis Neurological: reports: denies history Endocrine/Immune: reports: denies history Other Conditions: reports: denies history - PRIOR SURGERIES/PROCEDURES Surgical/Procedure History: reports: hysterectomy, BTL, orthopedic (extremity) ( [facility]) - IMMUNIZATION STATUS Childhood Immunizations: See Nurse Assessment Flu Vaccine: See Nurse Assessment - FAMILY HISTORY Family History: reviewed, not pertinent Physical Exam-General - PHYSICAL EXAM-ADULT Initial Vital Signs Reviewed: Yes - CONSTITUTIONAL General Appearance: no apparent distress, lethargic - EYES Eyes: pale conjunctivae. negative: pink conjunctivae - HEAD, EARS, NOSE, MOUTH & THROAT HENMT: normocephalic/atraumatic, moist mucous membranes - NECK Neck: non-tender, full range of motion - RESPIRATORY Respiratory: chest non-tender, lungs clear, normal breath sounds - CARDIOVASCULAR Cardiovascular: tachycardia - GASTROINTESTINAL (ABDOMEN) Abdominal Exam: normal bowel sounds, non tender, soft - MUSCULOSKELETAL Back Exam: normal inspection, no CVA tenderness Extremity: tenderness (left knee healing incision from knee replacement.). negative: normal range of motion - SKIN Integumentary: pallor - NEUROLOGIC Neurologic: grossly normal - PSYCHIATRIC Psych/Mental Status: normal mood/affect, normal thought content, normal thought process, oriented x 3 Progress - PLAN OF CARE/RESULTS Progress/Plan/Lab Results: Vital Signs - 8 hr 11/21/16 10:33 Temperature 98.4 F Pulse Rate 127 H Respiratory Rate 23 Blood Pressure 104/94 O2 Sat by Pulse Oximetry 99 Result Diagrams: 11/21/16 10:43 11/21/16 10:43 - CONSULTS/PCP/HOSPITALIST Notification #1 *Consult/PCP/Hospitalist*: Hospitalist Time Discussed: 11:43 Consult Disposition: Will see in ED, Admit Departure - Departure Date of Disposition Decision: 11/21/16 Time of Disposition Decision: 11:43 DIAGNOSIS: Anemia, Post-operative complication Disposition: ADMITTED INPATIENT 09 Certified Medical Emergency: Emergent Condition: Stable Referrals and Follow-Ups: Nona Hoffman MD [Primary Care Provider] - - Critical Care Note This patient required my direct & personal management of CC.: No Attestation - Physician/ MARCIO Attestation Patient care was provided by Advanced Practice Provider:: No The physician spent face to face time with patient:: Yes Advanced Practice Provider documentation review:: Supervising physician onsite and consulted in the evaluation and care of this patient. The physician did have a face to face encounter with the patient. This chart was documented by the indicated scribe, (Bhakti Regan Scribe) and accurately reflects the services I performed and decisions made by me, Bobby Baires MD, as attested by the provider's signature.
[2016-11-21] MEDS ORDERED: TYLENOL PO ONE (11:46)
[2016-11-21] MEDS ORDERED: BENADRYL IV ONE (11:46)
[2016-11-21 11:47] LABS: INR 1.13; PTT 33.8 Seconds (22.0-36.0)
--- NOTE | 2016-11-21 11:47 | EKG Report ---
Test Performed on : 11/21/2016 11:02:04 AM Test Reason : Chest Pain Blood Pressure : / mmHG Vent. Rate : 118 BPM Atrial Rate : 118 BPM P-R Int : 150 ms QRS Dur : 082 ms QT Int : 332 ms P-R-T Axes : 026 001 015 degrees QTc Int : 465 ms Sinus tachycardia. Minimal voltage criteria for LVH, may be normal variant Cannot rule out Anterior infarct (cited on or before 06-NOV-2016) Abnormal ECG When compared with ECG of 06-NOV-2016 14:06, Vent. rate has increased BY 41 BPM Unconfirmed Result
--- NOTE | 2016-11-21 11:52 | ED EKG INTERP ---
This chart was entered by Bhakti Regan Scribe, acting as scribe for Bobby Baires MD. EKG Interpretation - EKG Time of EKG reading by physician:: 11:02 EKG Read and Signed by:: Bobby Baires EKG Interpretation (*Must complete 3 of following elements*): Abnormal Rate: 118 (minimal voltage criteria for LVH, may be normal variant; cannot rule out anterior infarc, age undetermined ) Rhythm: sinus tachycardia Attestation - Physician/ MARCIO Attestation Patient care was provided by Advanced Practice Provider:: No The physician spent face to face time with patient:: Yes Advanced Practice Provider documentation review:: Supervising physician onsite and consulted in the evaluation and care of this patient. The physician did have a face to face encounter with the patient. This chart was documented by the indicated scribe, (Bhakti Regan Scribe) and accurately reflects the services I performed and decisions made by me, Bobby Baires MD, as attested by the provider's signature.
[2016-11-21 12:09] LABS: CK INDEX 0.2 (0.0-2.5); CK-MB 1.12 ng/mL (0.0-5.0)
[2016-11-21 12:22] LABS: LYMPHS 30 % (21-51); MONO 4 % (1-9)
[2016-11-21 12:23] LABS: HYPOCHROM 1+; LARGE PLATELETS 1+
[2016-11-21] MEDS ORDERED: NS 1,000 ML ONE (12:44)
--- NOTE | 2016-11-21 14:10 | HISTORY AND PHYSICAL ---
HISTORY OF PRESENT ILLNESS: The patient was admitted on 11/06/2016 with left infected knee arthroplasty status post removal of infected total knee arthroplasty, irrigation and debridement of the knee, replacement temporary total knee arthroplasty and antibiotic beads. She had acute blood loss anemia, was given 2 units of blood back then. She was sent back to long-term in [facility]. She returns now more swelling in the left leg. She denies any fever or chills but hemoglobin was down to 4 and we are admitting her going to transfuse her 4 units of blood. PAST MEDICAL HISTORY: 1. Hypertension. 2. Osteoarthritis. 3. Irritable bowel syndrome. They did state there is possibility she is having blood in the stool as well. Dr. Muñiz is her orthopedic and stated he did removal on 11/07/2016 removal of infected total knee arthroplasty, irrigation, debridement, replacement temporary femoral component and tibial component, placement of antibiotic beads. She states that she has been very weak and puny. SURGICAL HISTORY: She has had a , partial hysterectomy. SOCIAL HISTORY: No tobacco or ethanol. ALLERGIES: She is allergic to morphine. REVIEW OF SYSTEMS: General: Appetite has been poor. HEENT: Unremarkable. Respiratory: No increased work of breathing or dyspnea. Cardiovascular: No chest pain or tachy palpitation. GI: Unremarkable. : Unremarkable. Musculoskeletal/neurologic: Unremarkable. There was a question whether she had some blood in the stool. She has increased swelling around the left knee and appears to be a large hematoma and she has had some bleeding from the wound anterior incision. EXAM: Vital signs: Otherwise temperature 98.3 degrees, pulse 97, respirations 20, blood pressure 126/61. HEENT: Pupils equal, round. Lungs: Are clear in all lung acevedo. Cardiovascular: Regular rhythm and rate without murmur or S3. Abdomen: Soft, nontender, nondistended. Positive bowel sounds. No hepatosplenomegaly. Extremities: Without clubbing, cyanosis, or edema. Height 5 feet 4 inches. LAB: White blood cell count 15,420, hematocrit 13, hemoglobin 4.2, platelet count 409,000. Sodium 137, potassium 4.4, chloride 98, bicarb 26, BUN 33, creatinine 1.1. Pro time was 12.0, PTT was 33. Chest x-ray, no acute abnormality. MEDICATIONS: Her list of medications from home she is on Tylenol, Xanax 0.25 mg q.6 hours, aspirin 81 mg a day, daptomycin 500 mg IV daily, folic acid 1 mg daily, Arixtra 2.5 mg daily, hydrocodone 10/325 1-2 q.4 hours, Prilosec 40 mg a day., Carafate 1 g q.6 hours. ASSESSMENT AND PLAN: 1. Profound anemia, blood loss anemia, a large hematoma around the knee, recent surgery to remove an infected arthroplasty and a temporary replacement with some antibiotic beads. She has been on daptomycin at [facility]. We are going to transfuse her probably require 4 units, watch her volume status closely, we are going to hold her fondaparinux. 2. History of gastritis, gastroesophageal reflux. Continue her Carafate and continue her omeprazole. 3. Status post a knee arthroplasty and then infected hardware which have been removed the 04 of November. 4. She has a history of seeing Dr. Castro in the past. Apparently had some trouble with her platelets in the past. She has no trouble platelets and her PT and PTT are her normal and we will check B12 and folate, T4 and TSH. Will follow serial hemoglobin, hematocrit. 5. She has a history of hypertension, history of irritable bowel syndrome aware. cc: Pilo Pires MD
[2016-11-21] MEDS ORDERED: LASIX IV ONE ×2 (15:15)
[2016-11-21] MEDS ORDERED: ZOFRAN IV PRN (15:15)
[2016-11-21] MEDS: NS 1,000 ML IV SCH (17:35)
[2016-11-21] MEDS: TYLENOL PO PRN (19:44)
[2016-11-21 20:19] LABS: HEMOGLOBIN 4.2 g/dL (12.0-16.0)
[2016-11-21] MEDS ORDERED: XANAX PO PRN (21:18)
[2016-11-21] MEDS: NORCO-10 PO PRN (21:52)
[2016-11-22] MEDS ORDERED: LASIX ONE (01:55)
[2016-11-22] MEDS: NORCO-10 PO PRN ×5 (02:28→22:25)
[2016-11-22] MEDS: PRILOSEC PO SCH (06:02)
[2016-11-22 06:22] LABS: MANUAL DIFF NEEDED? NO
[2016-11-22 06:30] LABS: BASO% 0.2 % (0.0-0.8); EOS# 0.39 X1000 (0.0-0.7); EOS% 4.2 % (0.0-10.0); HEMATOCRIT 28.4 % (37.0-47.0); HEMOGLOBIN 9.2 g/dL (12.0-16.0); IMM GRAN# 0.04 X1000 (0.0-0.04); IMM GRAN% 0.4 % (0.0-0.5); LYMPH# 3.18 X1000 (1.2-3.4); LYMPH% 34.2 % (20.5-51.1); MCH 29.9 PG (27-31); MCHC 32.4 g/dL (33-37); MCV 92.2 FL (81-99); MONO# 0.91 X1000 (0.11-0.59); MONO% 9.8 % (1.7-9.3); MPV 10.5 FL (7.4-10.4); NEUT% 51.2 % (42.2-75.2); PLT 272 X1000 (130-400); RBC 3.08 XMIL (4.2-5.4)
[2016-11-22 07:10] LABS: AGAP 13; BUN 26 mg/dL (8-22); CHLORIDE 97 mmol/L (98-107); COSMO 284; POTASSIUM 3.7 mmol/L (3.5-5.1); SODIUM 139 mmol/L (136-145); TCO2 29 mmol/L (25-35)
[2016-11-22 07:17] LABS: FREE T4 1.04 ng/dL (0.93-1.70)
--- NOTE | 2016-11-22 10:51 | PROGRESS NOTE ---
DATE: 11/22/2016 SUBJECTIVE: Ms. Pate is feeling better today and feels stronger. OBJECTIVE: Vital Signs: Temp is 98.1 degrees, pulse 89, respirations 18, blood pressure 117/68. Lungs: Clear in all lung acevedo. Cardiovascular exam: Regular rhythm and rate without murmur or S3. Abdomen: Soft. Skin: Warm and dry. : Urine output was over 3.5 L. LABS: From this morning, hemoglobin went from 4.2 to 9.2, hematocrit from 13 to 28. Chemistries have improved as well. Serum creatinine 0.9 that came down from 1.1. Chemistries this morning: Sodium 139, potassium 3.7, chloride 97, BUN 26, creatinine 0.9. Vitamin B 12 was 932. Thyroid functions: T4 was 1.04 and TSH was 5.98. ASSESSMENT AND PLAN: 1. Profound anemia. Blood-loss anemia. 2. Large hematoma around the knee. Recent surgery to remove infected arthroplasty, temporary replacement with antibiotic beads. She has been on daptomycin at [facility]. We finished giving her 4 units I believe. Blood count is improved. She looks like she feels better. Will advance her to regular diet. 3. History of gastritis, gastroesophageal reflux. She has been on Carafate and omeprazole. 4. Status post knee arthroplasty, apparently infected hardware with temporary hardware placed with beads. 5. History of seeing Dr. Castro in the past with trouble with platelets and anemia. 6. History of hypertension and irritable bowel syndrome, aware. Review of orders: I do not see any change at this point. Orthopedic to evaluate as well and see if any suggestions. Check CBC and electrolytes again in the morning. Note that her pro time and PTT look good. cc: Pilo Pires MD
[2016-11-22] MEDS: NS 1,000 ML IV SCH (18:48)
[2016-11-23] MEDS: NORCO-10 PO PRN ×5 (03:27→20:17)
[2016-11-23] MEDS: PRILOSEC PO SCH (06:13)
[2016-11-23 06:47] LABS: MANUAL DIFF NEEDED? NO
[2016-11-23 06:57] LABS: BASO% 0.4 % (0.0-0.8); EOS# 0.26 X1000 (0.0-0.7); EOS% 3.5 % (0.0-10.0); HEMATOCRIT 26.4 % (37.0-47.0); HEMOGLOBIN 8.5 g/dL (12.0-16.0); IMM GRAN# 0.04 X1000 (0.0-0.04); IMM GRAN% 0.5 % (0.0-0.5); LYMPH# 2.95 X1000 (1.2-3.4); LYMPH% 39.9 % (20.5-51.1); MCH 30.2 PG (27-31); MCHC 32.2 g/dL (33-37); MONO# 0.66 X1000 (0.11-0.59); MONO% 8.9 % (1.7-9.3); MPV 10.9 FL (7.4-10.4); NEUT% 46.8 % (42.2-75.2); PLT 191 X1000 (130-400); RBC 2.81 XMIL (4.2-5.4)
[2016-11-23 07:13] LABS: AGAP 12; ALBUMIN 2.7 g/dL (3.5-5.0); ALKALINE PHOSPHATASE 118 U/L (32-104); BUN 20 mg/dL (8-22); CHLORIDE 98 mmol/L (98-107); COSMO 278; GOT 58 U/L (10-30); GPT 25 U/L (10-36); POTASSIUM 3.4 mmol/L (3.5-5.1); SODIUM 138 mmol/L (136-145); TCO2 28 mmol/L (25-35); TOTAL BILIRUBIN 1.05 mg/dL (0.20-1.00); TOTAL PROTEIN 6.5 g/dL (6.3-8.3)
--- NOTE | 2016-11-23 10:29 | PROGRESS NOTE ---
DATE: 11/23/2016 SUBJECTIVE: Ms. Pate feels better. The swelling has gone down in her left leg. Her color looks much better. She feels better. She is eating a little bit. Getting stronger. OBJECTIVE: Vital signs: Temp 98.5 degrees, pulse 92, respirations 18, blood pressure 130/66. Lungs: Clear in all lung acevedo. Cardiovascular: Regular rhythm and rate without murmur or S3. Abdomen: Soft. Skin: Warm and dry. Intake and output: Urine output 1200 mL. LAB: From today, white count 7,040, hematocrit 26, hemoglobin 8.5. ASSESSMENT AND PLAN: 1. Profound anemia, Blood-loss anemia. 2. Large hematoma around the left knee. Bleeding seems to have stopped. She has recently had surgery to remove infected hardware from arthroplasty. She has antibiotic beads in there, temporary hardware. She came from [facility]. We have given her 4 units. I think I will give her another 2 units. 3. Gastritis, gastroesophageal reflux. On Carafate and omeprazole. 4. Status post knee arthroplasty. Removing hardware. I am holding her anticoagulant because of bleeding. 5. History of hypertension and irritable bowel syndrome. Aware. Plan to give her 2 more units of packed red blood cells. cc: Pilo Pires MD
[2016-11-23] MEDS: TYLENOL PO PRN (22:51)
[2016-11-24] MEDS: NORCO-10 PO PRN ×4 (03:05→14:32)
[2016-11-24] MEDS: PRILOSEC PO SCH (06:06)
[2016-11-24 06:21] LABS: BASO% 0.3 % (0.0-0.8); EOS# 0.19 X1000 (0.0-0.7); EOS% 3.3 % (0.0-10.0); HEMATOCRIT 31.3 % (37.0-47.0); HEMOGLOBIN 10.2 g/dL (12.0-16.0); IMM GRAN# 0.03 X1000 (0.0-0.04); IMM GRAN% 0.5 % (0.0-0.5); LYMPH# 2.37 X1000 (1.2-3.4); LYMPH% 41.3 % (20.5-51.1); MANUAL DIFF NEEDED? NO; MCH 29.8 PG (27-31); MCHC 32.6 g/dL (33-37); MCV 91.5 FL (81-99); MONO# 0.51 X1000 (0.11-0.59); MONO% 8.9 % (1.7-9.3); MPV 10.6 FL (7.4-10.4); NEUT% 45.7 % (42.2-75.2); PLT 225 X1000 (130-400); RBC 3.42 XMIL (4.2-5.4)
[2016-11-24] MEDS ORDERED: CUBICIN IV SCH (09:00)
[2016-11-24] MEDS ORDERED: CUBICIN 500 MG in NS 100 ML IV SCH (10:00)
--- NOTE | 2016-11-24 14:09 | DISCHARGE SUMMARY ---
ADMISSION DATE: 11/21/2016 DISCHARGE DATE: 11/24/2016 HOSPITAL COURSE: She was admitted. Her primary care doctor is Dr. Nona Hoffman, she came in 11/21/2016 admitted on 11/06/2016 with left infected knee arthroplasty status post removal of infected knee arthroplasty irrigation and debridement of the knee, replacement of temporary total knee with antibiotic beads, she had blood loss anemia, was given 2 units of packed postop went to the half-way [facility], she returns with swelling in her left leg and hematoma and drop in hematocrit and hemoglobin. There was a report of potential blood in the stool but we saw no gross bleeding while she is here. PAST MEDICAL HISTORY: 1. Hypertension. 2. Osteoarthritis. 3. Irritable bowel syndrome. She is given 4 units of blood, is feeling much better. No sign of active bleeding. I gave her another 2 units of blood on 11/23/2016 hemoglobin up to 10, hematocrit 31, chemistries looked good. We have held her anticoagulant, her Hemoccult felt patient could go back to the half-way rehab on 11/24/2016. DISCHARGE MEDICATIONS: Xanax 0.5 mg q.6 hours p.r.n., continue her on daptomycin I think she getting 500 mg IV q.12, Prilosec 40 mg a day, we will hold her anticoagulant and I believe she was taking rifampin 300 mg b.i.d. as well I guess we will continue that, [place] p.r.n. pain, 1 multivitamin a day, Prilosec 40 mg a day and she is on Carafate 1 g q.6 hours, aspirin 81 mg a day. cc: Pilo Pires MD
[2016-11-24 15:52] VITALS: BP 125/70
== END 2016-11-24 18:08 ==
LOC: SUPCPDRO → ED 10:09 → EDIPHOLD 15:06 → 4N 15:36
PROVIDERS: ATTEND Emergency Medicine

== ENCOUNTER 2016-11-27 12:39 | Inpatient (IN) ==
[2016-11-27] MEDS ORDERED: DILAUDID IV PRN (13:36)
[2016-11-27] MEDS ORDERED: PHENERGAN PO PRN (13:49)
[2016-11-27] MEDS: PERCOCET-10 PO PRN ×2 (14:04→21:00)
[2016-11-27 14:59] LABS: MANUAL DIFF NEEDED? NO
[2016-11-27 15:05] LABS: BASO% 0.3 % (0.0-0.8); EOS# 0.11 X1000 (0.0-0.7); EOS% 1.7 % (0.0-10.0); HEMATOCRIT 34.2 % (37.0-47.0); HEMOGLOBIN 11.1 g/dL (12.0-16.0); IMM GRAN# 0.02 X1000 (0.0-0.04); IMM GRAN% 0.3 % (0.0-0.5); LYMPH# 2.75 X1000 (1.2-3.4); LYMPH% 41.3 % (20.5-51.1); MCH 30.2 PG (27-31); MCHC 32.5 g/dL (33-37); MCV 93.2 FL (81-99); MONO# 0.58 X1000 (0.11-0.59); MONO% 8.7 % (1.7-9.3); MPV 10.8 FL (7.4-10.4); NEUT% 47.7 % (42.2-75.2); PLT 232 X1000 (130-400); RBC 3.67 XMIL (4.2-5.4)
[2016-11-27 15:16] LABS: HEMOGLOBIN A1C 5.1 % (4.8-6.0)
[2016-11-27 15:29] LABS: AGAP 16; ALBUMIN 3.1 g/dL (3.5-5.0); ALKALINE PHOSPHATASE 113 U/L (32-104); BUN 13 mg/dL (8-22); CALCIUM 8.9 mg/dL (8.8-10.2); CHLORIDE 97 mmol/L (98-107); COSMO 276; GOT 22 U/L (10-30); GPT 13 U/L (10-36); POTASSIUM 3.6 mmol/L (3.5-5.1); SODIUM 138 mmol/L (136-145); TCO2 25 mmol/L (25-35); TOTAL BILIRUBIN 1.55 mg/dL (0.20-1.00); TOTAL PROTEIN 6.9 g/dL (6.3-8.3)
--- NOTE | 2016-11-27 16:27 | PROGRESS NOTE ---
DATE: 11/27/2016 SUBJECTIVE: The patient has a methicillin-resistant Staphylococcus aureus infected temporary left total knee arthroplasty. Today Dr. Muñiz found that part of the wound eviscerated and there was black hematoma present in the knee. MEDICATIONS: The patient had been on daptomycin. PHYSICAL EXAMINATION: Vital Signs: Temperature is 97.9 degrees, pulse 76, respirations 18, blood pressure 122/57. General: This is an obese, elderly female. She is in no acute distress. Lungs: Clear to auscultation. Cardiovascular: Regular heart rate. Abdomen: Soft and nontender. Extremities: The right arm has a PICC in it. The site is not erythematous or tender. I removed the dressing from the patient's left knee. Part of the wound had eviscerated. There was a black hematoma present. I took a culture from the knee and it extended deep to the prosthesis. LAB AND X-RAY: CBC today shows a white count of 6660, hemoglobin of 11.1, and platelet count 232,000. Creatinine 0.4. GFR is greater than 60. CK was 614 six days ago. ASSESSMENT AND PLAN: The patient has a methicillin-resistant Staph aureus temporary total knee arthroplasty. For now, I will continue daptomycin. I have repeated the CPK. COMORBIDITIES: The patient is elderly. Also, she has had prior surgeries on her knee. cc: MD Dhruv Canela MD [facility]
[2016-11-27] MEDS: PROTONIX IV SCH (20:50)
[2016-11-27] MEDS: CUBICIN 500 MG in NS 100 ML IV SCH (20:50)
[2016-11-27] MEDS: SODIUM CHLORIDE 0.9% INJ SCH (20:50)
[2016-11-27] MEDS: XANAX PO PRN (20:59)
[2016-11-27] MEDS: DULCOLAX PR SCH (21:01)
[2016-11-27] MEDS: MIRALAX PO SCH (21:01)
[2016-11-28] MEDS: PERCOCET-10 PO PRN ×4 (03:56→20:58)
[2016-11-28 05:21] LABS: AGAP 11; ALBUMIN 3.2 g/dL (3.5-5.0); ALKALINE PHOSPHATASE 107 U/L (32-104); BUN 12 mg/dL (8-22); CALCIUM 8.8 mg/dL (8.8-10.2); CHLORIDE 100 mmol/L (98-107); COSMO 276; GOT 21 U/L (10-30); GPT 12 U/L (10-36); POTASSIUM 3.5 mmol/L (3.5-5.1); SODIUM 138 mmol/L (136-145); TCO2 27 mmol/L (25-35); TOTAL BILIRUBIN 1.03 mg/dL (0.20-1.00)
[2016-11-28 08:43] LABS: MANUAL DIFF NEEDED? NO
[2016-11-28 08:45] LABS: BASO% 0.6 % (0.0-0.8); EOS# 0.13 X1000 (0.0-0.7); EOS% 2.1 % (0.0-10.0); HEMATOCRIT 33.1 % (37.0-47.0); HEMOGLOBIN 10.8 g/dL (12.0-16.0); LYMPH# 2.91 X1000 (1.2-3.4); LYMPH% 46.3 % (20.5-51.1); MCH 30.4 PG (27-31); MCHC 32.6 g/dL (33-37); MCV 93.2 FL (81-99); MONO# 0.55 X1000 (0.11-0.59); MONO% 8.7 % (1.7-9.3); MPV 10.3 FL (7.4-10.4); NEUT% 42.3 % (42.2-75.2); PLT 230 X1000 (130-400); RBC 3.55 XMIL (4.2-5.4)
[2016-11-28] MEDS: LEXAPRO PO SCH (08:55)
[2016-11-28] MEDS: MIRALAX PO SCH ×2 (08:58→20:32)
--- NOTE | 2016-11-28 11:10 | PROGRESS NOTE ---
DATE: 11/28/2016 PRESENT ILLNESS: The patient underwent debridement and irrigation of her methicillin-resistant Staphylococcus aureus infected temporary left total knee arthroplasty. MEDICATIONS: Patient is on daptomycin. PHYSICAL EXAMINATION: Vital Signs: Temperature is 98.6 degrees, pulse 77, respirations 16, blood pressure 134/60. Generally: This is an obese, elderly female. She is in no acute distress. Lungs: Clear to auscultation. Cardiovascular: Regular heart rate. Abdomen: Soft and nontender. Extremities: The patient's right arm has a PICC in it. The site is not draining or tender. Patient has a large dressing around her left knee. The dressing is intact. LAB AND X-RAY: CBC today shows a white count of 6290, hemoglobin 10.8, and platelet count 230,000m creatinine 0.5. GFR is greater than 60. Alkaline phosphatase was 107, bilirubin was 1.03. A culture taken from the knee yesterday is negative today. Patient's CPK was only 33. ASSESSMENT AND PLAN: Patient has a methicillin-resistant Staphylococcus aureus. Temporary total knee arthroplasty. I plan to continue daptomycin. COMORBIDITIES: Include being elderly and having prior surgeries on her knee. cc: MD John Canela MD
[2016-11-28] MEDS ORDERED: DIPRIVAN 1% ONE (11:21)
[2016-11-28] MEDS ORDERED: FENTANYL ONE (11:22)
[2016-11-28] MEDS ORDERED: XYLOCAINE-MPF 2% ONE (11:23)
[2016-11-28] MEDS ORDERED: QUELICIN (DOSE) ONE (11:25)
[2016-11-28] MEDS ORDERED: NEOSPORIN G.U. IRRIGANT ONE ×2 (11:41→13:04)
[2016-11-28] MEDS ORDERED: VANCOMYCIN 1 GM/NS 1 GM/250 ML IVPB ONE (12:25)
[2016-11-28] MEDS ORDERED: TOBRAMYCIN XX ONE (12:30)
[2016-11-28] MEDS ORDERED: VANCOMYCIN ONE (12:33)
[2016-11-28] MEDS ORDERED: CYKLOKAPRON 1,000 MG/NS 1,000 MG/100 ML IVPB ONE (13:04)
[2016-11-28] MEDS ORDERED: DECADRON ONE (13:25)
[2016-11-28] MEDS ORDERED: ZOFRAN ONE (13:25)
[2016-11-28] MEDS: DILAUDID ONE ×4 (14:00→14:23)
--- NOTE | 2016-11-28 16:17 | CONSULTATION ---
DATE OF CONSULTATION: 11/28/2016 REASON FOR CONSULTATION: Anemia secondary to blood loss. HISTORY OF PRESENT ILLNESS: This is a pleasant lady who was admitted earlier on 11/06 with the left knee arthroplasty and infected. She came in with anemia and also a large hematoma around the knee again. The patient denies having any hematemesis, melena, hematochezia. She does have a loss of appetite. PAST MEDICAL HISTORY: 1. Hypertension. 2. Osteoarthritis. 3. Irritable bowel syndrome. SURGICAL HISTORY: , partial hysterectomy and total knee arthroplasty. SOCIAL HISTORY: Does not smoke, drink or use drugs. ALLERGIES: Allergic to morphine. REVIEW OF SYSTEMS: She has No shortness of breath or respiratory difficulty.Cardiovascular: No chest pain. Musculoskeletal: As in HPI. PHYSICAL EXAMINATION: Vital Signs: Stable. Temperature 98.3 degrees, pulse 97 , respirations 20, blood pressure 126/61. HEENT: Mild conjunctival pallor. The patient has already received blood. Neck: Supple. Trachea midline. Heart: Normal first and second heart sounds. Abdomen: Benign. No organomegaly. No ascites. Patient has a large hematoma around the left knee. LABORATORY DATA: Today is stable as today with hematocrit around 34, 33. BUN and creatinine normal. Pro time is normal. ASSESSMENT AND PLAN: 1. Profound anemia. Most likely secondary to blood loss. It may be related to recent surgery. 2. Rule out GI blood loss. Serial Hemoccults. 3. History of some blood disorder related to platelets. Currently seeing Dr. Castro. Right now there is no problem with the platelets or PT. 4. History of gastritis on Carafate and omeprazole. 5. Status post knee arthroplasty with infection. 6. History of some blood disorder that Dr. Castro will be consulted. 7. Hypertension. 8. Irritable bowel syndrome. At this time there is no evidence of any acute GI blood loss that requires intervention. Will continue serially Hemoccults and continue GI prophylaxis and we will follow her with you. cc: Julio Cesar Evans MD MTDD
--- NOTE | 2016-11-28 17:35 | PROGRESS NOTE ---
DATE: 11/28/2016 Today Ms. Pate referred to be doing fine. I went to see Ms. Pate very early this morning. She had been sent to OR. When I went by this afternoon, she says she is doing a whole lot better.Vital Signs: Blood pressure is 122/61, pulse 84, respirations 18, temperature 98.4 degrees. General exam: Ms. Pate is a 76-year-old female, slightly obese. BMI of 36.8. She is in bed. She did not seem to be in any remarkable distress. HEENT: Mucosa is pink and moist. Anicteric. Acyanotic. Neck: Supple. Chest: Is clear. Cardiovascular: Regular rate and rhythm. There are no murmurs, no rubs, no gallops. Abdomen: Soft. There is a PICC line on the right upper arm. Extremities: No pedal edema. The left knee has been immobilized by the Orthopedic team. LABORATORY DATA: WBC is 6.29, hemoglobin is 10.8, platelet count of 230,000. Chemistries reviewed. Is completely unremarkable. ASSESSMENT: 1. MRSA septic knee of the left. The patient is status post a knee arthroplasty. 2. Osteoarthritis. 3. Anemia, none classified. The patient has had multiple transfusions in the past. Hemoglobin and hematocrit is relatively stable this time around. We are going to continue with the current daptomycin, pain management. We will get physical therapy involved. We will also consult Dr. Castro since she has been following the patient for some time. Of note, there is an electrophoresis of protein which was done in October which shows a monoclonal band of IgG kappa was present so would want the Hematology/Oncology colleagues to follow up to make sure this is not any light chain immunoglobulinopathy that needs to be addressed. cc: John Orellana MD
[2016-11-28] MEDS: NS 1,000 ML IV SCH (18:40)
--- NOTE | 2016-11-28 19:34 | OPERATIVE NOTE ---
PROCEDURE DATE: 11/28/2016 PREOPERATIVE DIAGNOSIS: Left knee hematoma. POSTOPERATIVE DIAGNOSIS: Left knee hematoma. PROCEDURE: Left knee hematoma evacuation, irrigation and debridement, placement of antibiotic beads and placement of wound VAC, as well as placement of a drain. ANESTHESIA: General. SURGEON: Dhruv Muñiz MD. FIRE EQUIPMENT REPAIRER INSPECTOR: Tabitha Hart PA-C. COMPLICATIONS: None. BLOOD LOSS: 50 mL. HEMOVAC: Times one. WOUND VAC: Times one. COOLING BLANKET: Times one. KNEE IMMOBILIZER: Times one. DESCRIPTION OF PROCEDURE: The patient was brought to the operative suite and placed in supine position. After successful administration of general anesthesia, the left lower extremity was prepped and draped in the usual sterile fashion. The open wound was debrided of the necrotic skin edges, and then the hematoma was evacuated. It tended to track subcuticularly up the lateral thigh. There did not appear to be any intra-articular fluid. The wound was copiously irrigated and dried, being certain all clot was removed, and then antibiotic beads were prepared on the back table and placed in the wound. A drain was placed exiting superior laterally and buried in the wound. The wound was then reapproximated with interrupted nylon sutures, and then a wound VAC was placed by the wound VAC nurse. A flex ALANA was placed and then a knee immobilizer. The patient tolerated the procedure well without complication. At the end of the procedure, all counts were correct x2. The patient was transferred to the recovery room in stable condition. cc: MD John Shafer MD
[2016-11-28] MEDS: SODIUM CHLORIDE 0.9% INJ SCH (20:07)
[2016-11-28] MEDS: PROTONIX IV SCH (20:07)
[2016-11-28] MEDS: CUBICIN 500 MG in NS 100 ML IV SCH (20:07)
[2016-11-28] MEDS: DULCOLAX PR SCH (20:33)
[2016-11-29] MEDS: PERCOCET-10 PO PRN ×5 (02:26→19:45)
[2016-11-29] MEDS: NS 1,000 ML IV SCH (04:42)
--- NOTE | 2016-11-29 07:29 | CONSULTATION ---
DATE OF CONSULTATION: 11/28/2016 PRIMARY CARE PHYSICIAN: Nona Hoffman MD REQUESTING PHYSICIAN: Dhruv Muñiz MD with Orthopedics. REASON FOR CONSULTATION: Medical management. CHIEF COMPLAINT: Left knee pain. HISTORY OF PRESENT ILLNESS: Ms. Pate is a 76-year-old female, who was recently discharged from our service on 11/24/2016. She was last here with left knee arthroplasty infection and had removal of arthroplasty, I D, replacement of TKA with antibiotic beads. She was also noted to have profound anemia and thrombocytopenia. This was eventually found to be heparin- induced thrombocytopenia. She was changed to arixtra. She also receive multiple units of blood. She was discharged and sent to a [facility], she followed up with Dr. Muñiz yesterday. Dr. Muñiz evaluated the knee and found the wound to be eviscerated with a hematoma and he admitted her for surgery today at which point he is going to do another irrigation and debridement. Dr. Crystal is following and the patient is on daptomycin. She has no complaints at this time with the exception of her knee pain. We have been asked to follow along for medical management. PAST MEDICAL HISTORY: 1. Recently infected knee arthroplasty with MRSA on antibiotics by Dr. Crystal. 2. Hypertension. 3. Osteoarthritis. 4. IBS. 5. 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 Hematology- Oncology was consulted last admission. Protein electrophoresis did reveal monoclonal band present in the gamma region consistent with a paraprotein. SURGICAL HISTORY: , partial hysterectomy, left TKA with subsequent removal and insertion of antibiotic beads. SOCIAL HISTORY: Patient denies tobacco, alcohol or drug use. She currently resides at [facility]. FAMILY HISTORY: Noncontributory. REVIEW OF SYSTEMS: Fourteen-point review of systems obtained and found to be negative with the exception of the HPI. CURRENT MEDICATIONS: Daptomycin 500 mg q.24 hours, Xanax 0.5 mg q.6 hours as needed, Dulcolax 10 mg p.r. at bedtime, Lexapro 5 mg daily, Dilaudid 0.5 to 1 mg IV every 3 hours as needed, oxycodone 10 one to two every 4 hours as needed, Protonix 40 mg IV q.24 hours, MiraLAX 17 g b.i.d., Phenergan as needed. ALLERGIES: Morphine. PHYSICAL EXAMINATION: Vital Signs: Blood pressure is 124/60, heart rate is 78 , respiratory rate 16, O2 saturation 97% on room air. Temperature is 98.5 degrees. General: This is an obese, female, lying in hospital bed in no acute distress. Neurologic: The patient is awake, alert and oriented. Follows commands without focal deficits. HEENT: Head is atraumatic, normocephalic. Her pupils are equal, round, reactive to light. Oral mucosa is moist. Trachea is midline. No JVD. Chest: Clear to auscultation bilaterally. CV: Regular rate and rhythm. S1- S2 is noted. GI: Soft, nondistended, nontender. Bowel sounds positive. Extremities: Left knee wrapped with multiple layers of bandages, scant amount of blood noted over the knee. Pulses are 1+ bilaterally. There is no edema. DIAGNOSTIC DATA: WBC 6.29, hemoglobin 10.8, hematocrit 33.1, platelet count 230 ,000. Sodium 138, potassium 3.5, chloride 100, CO2 27, anion gap 11, BUN 12, creatinine 0.5, glucose 102, calcium 8.8, T bilirubin 1.03. Alkaline phosphatase is 107, albumin 3.2. ASSESSMENT AND PLAN: 1. Left knee hematoma and wound of evisceration: Per Dr. Muñiz. Patient is scheduled for incision and drainage today. 2. History of methicillin-resistant Staphylococcus aureus infected left knee joint: Dr. Crystal is following. The patient is on daptomycin. 3. Anemia: The patient had extensive workup. Last admission at which time, protein electrophoresis did reveal a monoclonal band in the gamma region. The patient will likely need to follow up outpatient with Hematology-Oncology on this for possible bone marrow biopsy and any further evaluation. 4. Hypertension: Chronic and stable. Continue home medications. 5. Deep vein thrombosis prophylaxis. We will start a low-dose of anticoagulation 24 hours after surgery as long as the patient is not profoundly anemic. We would like to thank you for this consultation. We will continue to follow along with you. Dictated by CHARISSA Bhakta for John Orellana MD cc: CHARISSA Bhakta MD I have seen and examined this patient. I have provided face to face evaluation and I agree with the above plan MTDD
[2016-11-29 07:39] LABS: HEMATOCRIT 28.3 % (37.0-47.0); HEMOGLOBIN 9.2 g/dL (12.0-16.0); MCH 31.4 PG (27-31); MCHC 32.5 g/dL (33-37); MCV 96.6 FL (81-99); MPV 10.2 FL (7.4-10.4); RBC 2.93 XMIL (4.2-5.4)
[2016-11-29 07:44] LABS: AGAP 12; BUN 11 mg/dL (8-22); CALCIUM 8.6 mg/dL (8.8-10.2); CHLORIDE 101 mmol/L (98-107); COSMO 275; POTASSIUM 3.5 mmol/L (3.5-5.1); SODIUM 138 mmol/L (136-145); TCO2 25 mmol/L (25-35)
--- NOTE | 2016-11-29 08:06 | PROGRESS NOTE ---
DATE: 11/29/2016 SUBJECTIVE: Kendra Pate is a 76-year-old female who is postoperative day 1 from irrigation and debridement of her left knee hematoma. She has no complaints. OBJECTIVE: Vital signs: Stable. She is afebrile. Her hematocrit is 28.3%. Her dressing is clean, dry, and intact. She has had minimal output from her Hemovac. Her wound VAC is functioning properly, as well. Her Gram stain and cultures have been negative, as well, thus far. IMPRESSION: Status post left knee hematoma irrigation and debridement. PLAN: We are going to continue to observe her today. She can come out of her brace just to bend her knee and to get up and down and just to get a break from it, but would leave it on most of the time. If she is doing any weightbearing, she should wear the brace. cc: MD John Shafer MD
[2016-11-29] MEDS: LEXAPRO PO SCH (11:29)
[2016-11-29] MEDS: MIRALAX PO SCH ×2 (11:29→22:48)
[2016-11-29] MEDS: PERIDEX MT SCH ×2 (11:30→22:48)
--- NOTE | 2016-11-29 12:21 | CONSULTATION ---
DATE OF CONSULTATION: 11/29/2016 ADMITTING PHYSICIAN: Dr. Orellana. REQUESTING PHYSICIAN: Dr. Orellana. We appreciate this consult. CHIEF COMPLAINT: Hemolytic anemia/ITP. HISTORY OF PRESENT ILLNESS: Ms. Collette Pate is a 76-year-old female, who is well-known to Dr. Asiya Castro, with a history of hemolytic anemia and ITP. 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 She is followed closely in clinic. The patient additionally has a history of osteoarthritis and had a recent left knee arthroplasty. She developed a subsequent MRSA left knee sepsis, with a left knee hematoma. The patient was admitted to [facility] secondary to wound evisceration. And for irrigation and drainage of the left knee. The patient is status post the procedure with Dr. Muñiz, and has tolerated the procedure well. We are consulted secondary to the patient's history of hemolytic anemia and ITP. PAST MEDICAL HISTORY: Osteoarthritis. PAST SURGICAL HISTORY: 1. Knee replacement. 2. Plasmapheresis catheter placement. SOCIAL HISTORY: The patient is a resident of a senior care. She does not use tobacco, alcohol, or illicit drugs. FAMILY HISTORY: The patient has no history of hematologic or oncologic problems. MEDICATIONS ON ADMISSION: 1. Klor-Con. 2. Protonix. 3. Acetaminophen. 4. Mansfield. 5. Arixtra. 6. Vancomycin. 7. Rifampin. ALLERGIES: The patient has no known drug allergies. REVIEW OF SYSTEMS: A 14-point review of systems was obtained and is negative, except as mentioned in the HPI. PHYSICAL EXAMINATION: General: Ms. Kendra Pate is a 76-year-old female lying supine in bed in no immediate distress. Vital Signs: Temperature 97.8 degrees, blood pressure 100/55, heart rate 81, respirations 20, oxygen saturation 99% on room air. HEENT: Normocephalic, atraumatic. Mucous membranes are slightly pale and moist. Sclerae anicteric. Extraocular movements intact. Neck: Supple. Lungs: Clear to auscultation bilaterally. Chest expansion is equal bilaterally. Cardiovascular: S1, S2 is heard, without murmur, rub, or gallop. Abdomen: Soft, nondistended, nontender. Bowel sounds positive in all quadrants. No rebound or guarding noted. Extremities: Without clubbing or cyanosis. The patient does have minimal edema in the left lower extremity. Additionally, the patient has a brace to her left knee. Dermatologic: No rashes, bruises, or lesions. Neurologic: The patient is awake, alert, and oriented x3. She is somewhat confused to situation at times. She has no focal motor deficit at this time. LABORATORY DATA: Hemoglobin 9.2, hematocrit 28.3, white blood cell count 5.85, platelets 200,000. Sodium 138, potassium 3.5, chloride 101, CO2 is 25, BUN 11, creatinine 0.5, glucose 99, calcium is 8.6. ASSESSMENT AND PLAN: 1. 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 Platelets are currently stable at 200,000. We will follow CBC and transfuse platelets if necessary. 2. Left knee hematoma, status post left knee arthroplasty in the setting of MRSA left knee sepsis. Left knee cultures are currently pending. The patient is status post I and D, and is postop day 1. She is wearing a brace to that region, with drain in place. Treatment per surgery. 3. Anemia, stable at this time. Hemoglobin is 9.2. We will follow CBC and transfuse if necessary. 4. We will follow along with you. 5. Further recommendations pending outcomes. The above reflects the history, exam, assessment, and plan of Dr. Castro. Dictated by CHARISSA Jasso for Asiya Castro MD cc: CHARISSA Jasso MD Raphael K. Quansah, MD I have examined the patient and reviewed the chart and agree with the above A/P. Asiya ATKINSON
--- NOTE | 2016-11-29 14:32 | PROGRESS NOTE ---
DATE: 11/29/2016 SUBJECTIVE: Today, Ms. Pate referred to be relatively stable. She said she is just tired and did not get sufficient sleep. Otherwise, no other complaint. OBJECTIVE: Vital signs are stable. Blood pressure is 107/83, pulse of 88, respirations 20, temperature 98.7 degrees. PHYSICAL EXAMINATION: HEENT: Mucosa is pink and moist. Anicteric. Acyanotic. Neck is supple. Chest: Good air entry bilateral. No crepitations. No rhonchi. Cardiovascular : Regular rate and rhythm. Abdomen is soft, nontender. There is no hepatosplenomegaly. Extremities: No pedal edema. The left knee continues to be immobilized with braces. BASKETBALL REFEREE: The patient is awake, alert, and oriented. There is no focal neurological deficit. LABORATORY DATA: WBC is 5.85, hemoglobin is 9.2, platelet count of 200,000. Chemistry is reviewed and is completely unremarkable. ASSESSMENT: 1. Left Methicillin-resistant Staphylococcus aureus septic knee spine status post knee arthroplasty. 2. Osteoarthritis. 3. Anemia of chronic disease. The patient is status post multiple transfusions in the past. 4. Left knee hematoma, status post evacuation during the surgery. 5. Remote history of abnormal kappa elevation in blood sample. We are waiting Heme/Onc to evaluate for possible light chain immunoglobulinopathy. For today, we will continue with physical rehabilitation. Continue with the current antibiotics and plan for Ms. Pate discharge on Thursday. cc: John Orellana MD MTDD
[2016-11-29] MEDS: XANAX PO PRN (15:24)
--- NOTE | 2016-11-29 17:22 | CONSULTATION ---
DATE OF CONSULTATION: 11/28/2016 REASON FOR CONSULTATION: Anemia. HISTORY OF PRESENT ILLNESS: This 76-year-old lady who had left knee arthroplasty infection and had removal of that and replacement TKA with antibiotic beads. She came in again with hematoma around her left knee. She is on Arixtra. She has received several units of blood. I talked to the family to see if she is having any hematemesis or melena, and the patient' s family says no. Patient has not been eating well for the last several weeks. Even the smell of food is bothering her. I was asked to see if there is any GI reason for this anorexia and severe anemia. PAST MEDICAL HISTORY: 1. Recent infected knee arthroplasty and MRSA. 2. Hypertension. 3. Osteoarthritis. 4. IBS. 5. Heparin-induced thrombocytopenia and hemolysis. SURGICAL HISTORY: 1. section. 2. Partial hysterectomy. 3. Left BKA. SOCIAL HISTORY: She does not smoke, drink, or use drugs. She is in [facility]. FAMILY HISTORY: Negative. REVIEW OF SYSTEMS: Negative other than GI and weakness. CURRENT MEDICATIONS: 1. Daptomycin 500 q. 24 hours. 2. Xanax 0.5 on a p.r.n. basis. 3. Lexapro 5 mg daily. 4. Dilaudid 0.5. 5. oxycodone 10 mg every 4 hours. 6. Protonix 40. ALLERGIES: She is allergic to morphine. PHYSICAL EXAMINATION: Vital Signs: Blood pressure 124/60, heart rate 78, respiratory rate 16, O2 saturation 97%. Temperature is 98.5 degrees. General: Obese lady in no acute distress. Lying in bed. She just had surgery, but she is alert. HEENT: Conjunctival pallor present. Neck: Supple. Trachea midline. Heart: Normal first and second heart sounds. Lungs : Clear. Abdomen: Benign. No organomegaly. Left knee: He had surgical bandages. LABORATORY DATA: Hemoglobin 10.8 and hematocrit 33 upper transfusion. Platelets are 233,000. Creatinine normal. Albumin 3.2. IMPRESSION AND PLAN: 1. Severe anemia. 2. Hematoma of the left knee which has been incised and drained today. 3. History of Methicillin-resistant Staphylococcus aureus in the left knee. Dr. Crystal is following and she is on daptomycin. 4. Anemia. I don't think there is evidence of an upper gastrointestinal bleed. There is no history of melena or hematochezia. We will continue the gastrointestinal prophylaxis and watch for any source of gastrointestinal bleeding. 5. Anorexia probably related to infection and being sick. We will consider upper endoscopy if needed. 6. Hypertension. 7. Deep venous thrombosis prophylaxis is being held because of this recent bleed and anemia will be decided after consultation with surgeon. At this point, we will hold off on any endoscopy. We will see how she does over the next 2-[address] South will see her Thursday and decide. cc: MD John Martinez MD MTDD
[2016-11-29] MEDS: SODIUM CHLORIDE 0.9% INJ SCH (22:48)
[2016-11-29] MEDS: PROTONIX IV SCH (22:48)
[2016-11-29] MEDS: DULCOLAX PR SCH (22:49)
[2016-11-29] MEDS: CUBICIN 500 MG in NS 100 ML IV SCH (23:51)
[2016-11-30] MEDS: PERCOCET-10 PO PRN ×5 (01:06→23:56)
[2016-11-30 06:03] LABS: HEMATOCRIT 27.3 % (37.0-47.0); HEMOGLOBIN 8.8 g/dL (12.0-16.0); MCH 31.1 PG (27-31); MCHC 32.2 g/dL (33-37); MCV 96.5 FL (81-99); MPV 10.5 FL (7.4-10.4); RBC 2.83 XMIL (4.2-5.4)
[2016-11-30 06:35] LABS: AGAP 10; BUN 12 mg/dL (8-22); CALCIUM 9.2 mg/dL (8.8-10.2); CHLORIDE 101 mmol/L (98-107); COSMO 277; POTASSIUM 3.4 mmol/L (3.5-5.1); SODIUM 139 mmol/L (136-145); TCO2 28 mmol/L (25-35)
[2016-11-30] MEDS: LEXAPRO PO SCH (09:58)
[2016-11-30] MEDS: PERIDEX MT SCH ×3 (09:58→22:21)
[2016-11-30] MEDS: MIRALAX PO SCH ×2 (09:58→22:21)
--- NOTE | 2016-11-30 16:59 | PROGRESS NOTE ---
DATE: 11/30/2016 SUBJECTIVE: This morning, Ms. Pate referred to be stable. Did not have any acute complaints. OBJECTIVE: Vital Signs: Stable. Blood pressure is 146/64, pulse is 75, respirations 18, temperature 98.8 degrees. General: Ms. Pate is a 76-year-old female. She is in bed, not seemingly distress. HEENT: Mucosa is pink and moist. Anicteric. Acyanotic. Neck: Supple. Chest: Clear. Cardiovascular: Regular rate and rhythm. Abdomen: Soft, nontender. Extremities: No pedal edema. The left knee continues to be immobilized with braces. SOLUTION CONSULTANT: Patient is awake, alert and oriented x4. There is no focal neurological deficit. LABORATORY DATA: CBC has been reviewed. Hemoglobin and hematocrit 8.8 and 27.3. Chemistry is also reviewed. Potassium is 3.4, we will replace that. So far, microbiology has shown no growth. ASSESSMENT: 1. Left knee hematoma, status post dermatome evacuation. 2. History of left methicillin-resistant Staphylococcus aureus septic knee, status post knee arthroplasty. 3. Osteoarthritis. 4. Anemia of chronic disease. 5. Remote history of abnormal kappa elevation in lab work suspicious for light chain immunoglobulinopathy. Patient follows up with Hematology/Oncology. PLAN: So in general, I think Ms. Pate is relatively stable from medical standpoint. Hemoglobin and hematocrit continues to be stable. We will trend this tomorrow. If it is not remarkably low and patient continues to be hemodynamically stable, she can be discharged to her rehab. cc: John Orellana MD
--- NOTE | 2016-11-30 19:33 | PROGRESS NOTE ---
DATE: 11/30/2016 SUBJECTIVE: Kendra Pate is a 76-year-old female who is postoperative day 2 from I and D of her left knee. She has no complaints. OBJECTIVE: She is a well-developed, well-nourished female. She is alert, oriented, and cooperative. On exam her vital signs are stable. She is afebrile. She has had minimal output from her drain today. Her wound VAC is functioning well. Her leg is neurovascularly intact. She has range of motion from 0-45 degrees with mild pain. Her hematocrit is 27.3%. ASSESSMENT: Left knee irrigation and debridement. PLAN: We have removed her dressing today. I am going to Hep-Lock her IV. Will continue her wound VAC and can discontinue the Gigi, the knee immobilizer and cooling blanket for now. Therapy can work on range of motion beginning tomorrow. We will change her wound VAC tomorrow as well. She can get up with assistance to the bedside commode and the chair. cc: cc: MD John Shafer MD
[2016-11-30] MEDS: XANAX PO PRN (19:52)
[2016-11-30] MEDS: SODIUM CHLORIDE 0.9% INJ SCH (19:53)
[2016-11-30] MEDS: PROTONIX IV SCH (19:53)
[2016-11-30] MEDS: DULCOLAX PR SCH (22:20)
[2016-11-30] MEDS: CUBICIN 500 MG in NS 100 ML IV SCH (23:41)
[2016-12-01 05:59] LABS: HEMOGLOBIN 9.4 g/dL (12.0-16.0); MCH 31.1 PG (27-31); MCHC 32.4 g/dL (33-37); MPV 10.1 FL (7.4-10.4); RBC 3.02 XMIL (4.2-5.4)
[2016-12-01 06:17] LABS: AGAP 10; BUN 12 mg/dL (8-22); CALCIUM 9.6 mg/dL (8.8-10.2); CHLORIDE 100 mmol/L (98-107); COSMO 277; POTASSIUM 3.3 mmol/L (3.5-5.1); SODIUM 139 mmol/L (136-145); TCO2 29 mmol/L (25-35)
[2016-12-01] MEDS: LEXAPRO PO SCH (09:48)
[2016-12-01] MEDS: PERIDEX MT SCH ×2 (09:49→20:12)
[2016-12-01] MEDS: MIRALAX PO SCH ×2 (09:54→20:14)
[2016-12-01] MEDS: CENTRUM SILVER PO SCH (09:54)
[2016-12-01] MEDS: ICAR-C PO SCH ×2 (09:54→20:12)
[2016-12-01] MEDS: PERCOCET-10 PO PRN ×3 (11:05→20:13)
--- NOTE | 2016-12-01 14:41 | PROGRESS NOTE ---
DATE: 12/01/2016 SUBJECTIVE: The patient is currently resting bed. Her daughter was at bedside. She denies any fevers, rigors, chills. Denies any nausea, vomiting, vomiting blood, or passing blood in the stools. She has history of intermittent constipation. She is admitted for debridement of the left knee and has a MRSA infection. OBJECTIVE: Vital signs: Temperature 98.4, pulse rate of 81, respiratory rate 18, blood pressure 130/95, saturating % on room air. Body weight of 188 pounds 4.8 ounces. General appearance: Moderately built, moderately nourished, lying in bed, in no distress. HEENT: Mild pallor. No icterus. Neck: Supple. Abdomen: Obese, soft, nontender, nondistended. Bowel sounds present. No guarding. No rebound. Extremities: No cyanosis, clubbing. She has a wound VAC from a left knee. Neurologic: She is alert, awake, oriented x3. LABS: Hemoglobin and hematocrit are 9.4 and 29, white count of 4.9, platelet count of 233,000, MCV of 96. Sodium 139, potassium 3.3, chloride 100, bicarb 29, anion gap 10, BUN of 12, creatinine 0.5, glucose of 102, calcium is 9.6, magnesium 1.5. AST 21, ALT 12, alkaline phosphatase is 107, total protein 7, albumin 3.2, total bilirubin is 1.03. She had her last CT scan done on 10/07/2016 of the abdomen. It showed fatty infiltration of the liver. No bowel obstruction. Normal spleen, pancreas, adrenal glands, hysterectomy, and small left lower lobe nodule. IMPRESSION AND PLAN: 1. Anemia. Likely multifactorial but we will check for Hemoccult. We will start her on Iron C b.i.d. and multivitamin once daily. 2. Constipation. We will keep her on MiraLAX twice a day. 3. Gastrointestinal prophylaxis with PPIs. 4. Left knee infection. Continue antibiotics per the primary team. 5. Hematoma of the left knee which was incised and drained. 6. Methicillin-resistant Staphylococcus aureus infection of the left knee. Dr. Crystal is following. 7. Fatty liver on CT scan in October 2016. Patient will need to lose weight and cut done carbs and fried foods. 8. The patient will need an outpatient EGD and colonoscopy once she heals from this knee infection. 9. The above plan was discussed with the patient and Dr. Muñiz and all questions answered. Please call us with any further questions. cc: MD John Mondragon MD Dr. Sharp [facility]
--- NOTE | 2016-12-01 15:37 | PROGRESS NOTE ---
DATE: 12/01/2016 PRESENT ILLNESS: The patient is status post debridement and irrigation of her methicillin- resistant Staph aureus infected temporary left total knee arthroplasty. MEDICATIONS: The patient is on daptomycin. PHYSICAL EXAMINATION: Vital Signs: Temperature is 98.4 degrees, pulse 74, respirations 14, blood pressure 130/95. General: This is an alert, elderly female. She is obese. She is in no acute distress. Lungs: Clear to auscultation. Cardiovascular: Regular heart rate. Abdomen: Soft and nontender. The patient has a PICC in her right arm. The site is not erythematous or swollen. The patient on her left knee has the VAC in place. There is no surrounding erythema. LAB AND X-RAY STUDIES: IgG and IgA were normal. The patient's left knee culture at admission to the hospital this time is negative. Creatinine 0.5. GFR is greater than 60. CBC shows a white count of 4,920, hemoglobin 9.4, and platelet count of 233,000. ASSESSMENT AND PLAN: I count the first day of treatment as the day the patient 1st had a sterile knee culture which was on November 06. Therefore, the patient now has had 22 days of treatment. My plan is to treat her for a total of 8 weeks. It was felt that she may have had an adverse reaction to rifampin and I am just going to keep her on the daptomycin and not add back rifampin. The patient's comorbidities include being elderly and having prior surgeries on her knee. cc: MD John Canela MD MTDD
--- NOTE | 2016-12-01 15:57 | PROGRESS NOTE ---
DATE: 12/01/2016 SUBJECTIVE: Ms. Collette Pate is sitting quietly in her recliner with her daughter at bedside. She seemed somewhat down today and is awaiting to be discharged in the next few days hopefully. She is in no acute distress. Vital signs and laboratory are stable. OBJECTIVE: Vital Signs: Blood pressure 130/95, pulse 81, respirations 18, temperature 98.4 degrees Fahrenheit, O2 saturation 96% on room air. HEENT: Head normocephalic, atraumatic. Mucosa is pink and moist. Pupils reactive to light. Oropharynx clear. Neck: Supple. No lymphadenopathy or thyromegaly. Cardiovascular: S1, S2. Regular rate and rhythm. No murmurs noted. Respiratory: Breath sounds clear to auscultation bilaterally. No rhonchi, rales or wheezing noted. Abdomen: Soft, nontender, nondistended. Positive for bowel sounds. Extremities: 1+ edema to left lower extremity. Wound VAC to the left knee. Site is clean and dry with no drainage or erythema. Neurological: No focal neurological deficits. LABORATORY DATA: Total white blood cell count 4.92 hemoglobin 9.4, hematocrit 29, platelet count 233,000. Sodium 139, potassium 3.3, BUN 12, creatinine 0.5. ASSESSMENT AND PLAN: 1. 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 Platelet count today is within normal limits at 233,000. Hemoglobin 9.4, hematocrit 29. We will continue to monitor counts closely and transfuse as needed. 2. Left knee hematoma, status post left knee arthroplasty in the setting of MRSA and sepsis. She does have a wound VAC to the left knee. Wound cultures were negative. She is on antibiotics and is being followed closely by Dr. Muñiz. We will continue to follow along and provide recommendations as needed. Dictated by CHARISSA Roger for Asiya Castro MD cc: MD John Rosales MD I have examined the patient and reviewed the chart and agree with the above A/ P. Asiya ATKINSON
--- NOTE | 2016-12-01 16:15 | PROGRESS NOTE ---
DATE: 12/01/2016 SUBJECTIVE: Today Ms. Pate referred to be doing fine. She was actually sitting up in the chair and the sister was also at the bedside with her. OBJECTIVELY: General: Ms. Flor is a 76-year-old female. She was sitting up in a chair. She was not in any distress. HEENT: Mucosa is pink and moist. Vital Signs: Blood pressure is 130/95, pulse is 81, respirations 18, temperature is 98.4 degrees. Chest: Good air entry bilaterally. No crepitations. No rhonchi. Cardiovascular: Regular rate and rhythm. There are no murmurs, no rubs, no gallops. Abdomen: Soft, nontender. Extremities: No pedal edema. [employer]: Patient is awake and alert and oriented x4. Extremities: The left knee brace has been removed. The wound VAC is still in place. The knee itself looks slightly swollen. There is some discoloration at the medial aspect of the knee. LABORATORY DATA: WBC is 4.92, hemoglobin is 9.4, platelet count 233,000. Chemistry is reviewed, unremarkable. Potassium is 3.3. ASSESSMENT: 1. Left knee hematoma status post hematometra evacuation. 2. History of left knee septic arthritis with MRSA. 3. Osteoarthritis. 4. Anemia of chronic disease. 5. Mild hypokalemia. We will continue to replace this. PLAN: So in general, I think Ms. Pate is relatively stable. She is participating in physical therapy. She has had the hematoma evacuated. Orthopedics is on board. From a medical standpoint, I think the patient can be discharged to rehab whenever it is okay with Orthopedic Team. Patient is came from [facility]. cc: John Orellana MD
--- NOTE | 2016-12-01 17:22 | PROGRESS NOTE ---
DATE: 12/01/2016 SUBJECTIVE: Ms. Pate is a 76-year-old female who is postoperative day 3 from an irrigation and debridement of her left infected total knee arthroplasty. She has no new complaints. OBJECTIVE: General Appearance: She is a well-developed, well-nourished female. She is alert, oriented, and cooperative with examination. She is in no acute distress. Vital Signs: On examination her vital signs are stable and she is afebrile. Her wound VAC dressing was changed today and her wound VAC is currently functioning well. Her left leg is neurovascularly intact. She has range of motion to about 45 degrees with some pain. Her hemoglobin is 9.4, hematocrit is 29.0. ASSESSMENT: Postoperative day 3 from an incision and drainage of a left infected total knee arthroplasty. PLAN: Today we have changed her dressing for her wound VAC. We will have her weightbearing as tolerated with physical therapy. We will have her continue working with physical therapy. She will likely go to rehab later this week. Dictated by IAN Rviera for Dhruv Muñiz MD cc: IAN Rivera MD Raphael K. Quansah, MD
[2016-12-01] MEDS: PROTONIX IV SCH (20:13)
[2016-12-01] MEDS: SODIUM CHLORIDE 0.9% INJ SCH (20:13)
[2016-12-01] MEDS: DULCOLAX PR SCH (20:14)
[2016-12-02] MEDS: CUBICIN 500 MG in NS 100 ML IV SCH (00:39)
[2016-12-02] MEDS: PERCOCET-10 PO PRN ×4 (00:39→20:39)
[2016-12-02 07:46] LABS: MANUAL DIFF NEEDED? NO
[2016-12-02 07:50] LABS: BASO% 0.2 % (0.0-0.8); EOS# 0.13 X1000 (0.0-0.7); EOS% 2.4 % (0.0-10.0); HEMATOCRIT 28.7 % (37.0-47.0); HEMOGLOBIN 9.3 g/dL (12.0-16.0); LYMPH# 3.11 X1000 (1.2-3.4); LYMPH% 56.8 % (20.5-51.1); MCH 30.4 PG (27-31); MCHC 32.4 g/dL (33-37); MCV 93.8 FL (81-99); MONO# 0.45 X1000 (0.11-0.59); MONO% 8.2 % (1.7-9.3); MPV 10.7 FL (7.4-10.4); NEUT% 32.4 % (42.2-75.2); PLT 249 X1000 (130-400); RBC 3.06 XMIL (4.2-5.4)
--- NOTE | 2016-12-02 08:03 | PROGRESS NOTE ---
DATE: 12/02/2016 PRESENT ILLNESS: The patient is status post debridement and irrigation of a methicillin-resistant Staphylococcus aureus temporary total knee arthroplasty. MEDICATIONS: The patient currently is on daptomycin; this is day 5 of treatment with that agent. PHYSICAL EXAMINATION: Vital Signs: Temperature is 98.2 degrees, pulse 83, respirations 14, blood pressure 132/70. General: This is an ill-appearing elderly female who is in no acute distress. Lungs-clear to auscultation. CV-heart rate is regular. Abdomen-soft, nontender. L leg-VAC is in place, no erythema. R arm-PICC site not red or tender. LAB AND X-RAY STUDIES: The patient's IgA level was 257. Patient's IgG level was 1138. CPK is 11. ASSESSMENT AND PLAN: My plan is to continue the patient for 8 weeks. She has now had 23 days of treatment. It was felt that she may have an adverse reaction to rifampin, so I am going to stop her on it and keep her on daptomycin as a single agent. COMORBIDITIES: Include being elderly, and had prior surgery on her knee. cc: MD Sepideh Canela MD MTDD
--- NOTE | 2016-12-02 08:12 | PROGRESS NOTE ---
DATE: 12/02/2016 SUBJECTIVE: Ms. Pate is a 76-year-old female who is postoperative day 4 from an irrigation and debridement of her left infected total knee arthroplasty. She is doing well. She has no new complaints. OBJECTIVE: She is a well developed, well-nourished female. She is alert, oriented, and cooperative with the examination. She is in no acute distress. Her vital signs are stable. She is afebrile. Her wound VAC dressing is intact and her wound VAC is functioning well. Her left leg is neurovascularly intact. She continues to have pain with range of motion but overall she is doing well. ASSESSMENT: Postoperative day 4 from an irrigation and debridement of a left infected total knee arthroplasty. PLAN: We are going to get a CBC today and continue to monitor her blood counts. We will have her continue working with physical therapy and she will likely go to rehab tomorrow. Dictated by IAN Rivera for Dhruv Muñiz MD cc: IAN Rivera MD Katherine Takundwa, MD
--- NOTE | 2016-12-02 08:18 | PROGRESS NOTE ---
DATE: 12/02/2016 PRESENT ILLNESS: The patient is status post debridement and irrigation of a methicillin-resistant Staphylococcus aureus infected temporary left knee arthroplasty. MEDICATIONS: This is the 5th day for the patient to be on daptomycin. PHYSICAL EXAMINATION: Vital Signs: Temperature is 98.2 degrees, pulse 83, respirations 14, blood pressure 132/70. General: This is a fairly healthy-appearing, elderly female with the exception that she is obese. Lungs: Clear to auscultation. Cardiovascular: Regular heart rate. Abdomen: Soft and nontender. Extremities: The right arm has a PICC in it and the site is not erythematous or purulent. The left leg has a VAC on the patient's knee wound. There is no surrounding erythema. Neurologic: Patient is alert. She can move her extremities LAB AND X-RAY STUDIES: IgA was 257, IgG was 1138. Both of these are normal values. The patient's CPK is 11. There are no new radiographic studies. ASSESSMENT AND PLAN: I am going to continue with daptomycin. The patient has had now 23 days of treatment out of a total of 8 weeks. COMORBIDITIES: Include she is elderly. She has also had more than 1 surgery on her knee. cc: MD Sepideh Canela MD
[2016-12-02] MEDS: ICAR-C PO SCH ×2 (09:03→20:17)
[2016-12-02] MEDS: LEXAPRO PO SCH (09:03)
[2016-12-02] MEDS: CENTRUM SILVER PO SCH (09:03)
[2016-12-02] MEDS: PERIDEX MT SCH ×2 (09:05→20:17)
[2016-12-02] MEDS: XANAX PO PRN (09:05)
[2016-12-02] MEDS: MIRALAX PO SCH ×2 (09:06→20:21)
[2016-12-02] MEDS ORDERED: MAGNESIUM SULFATE 2 GM/S.W.I. 2 GM/50 ML IVPB IV ONE (18:42)
[2016-12-02] MEDS ORDERED: TYLENOL PO PRN (18:58)
[2016-12-02] MEDS: PROTONIX IV SCH (20:17)
[2016-12-02] MEDS: SODIUM CHLORIDE 0.9% INJ SCH (20:17)
[2016-12-02] MEDS: DULCOLAX PR SCH (20:21)
[2016-12-02] MEDS ORDERED: LOVENOX SUBQ SCH (21:00)
[2016-12-03] MEDS: PERCOCET-10 PO PRN ×2 (01:44→09:39)
[2016-12-03] MEDS: CUBICIN 500 MG in NS 100 ML IV SCH (02:07)
--- NOTE | 2016-12-03 04:22 | PROGRESS NOTE ---
DATE: 12/02/2016 SUBJECTIVE: The patient is resting comfortably in bed. She has no complaints at this time. The patient did have a bowel movement this afternoon. OBJECTIVE: Vital Signs: Temperature 98.1 degrees, blood pressure 132/66, heart rate 87, respirations 14, O2 saturations 97% on room air, input 1.2 L, output 945 mL. General: This is a morbidly obese female lying in bed in no acute distress. Head: Normocephalic , atraumatic. Heart: S1, S2 normal. Regular rate and rhythm. Lungs: Equal air entry bilaterally, no crackles, no rales. Abdomen: Positive bowel sounds. Soft, nontender, nondistended. Neuro: The patient is awake and alert. LABS: White blood cell count 5.4, hemoglobin 9.3, hematocrit 28, platelets 249, 000. ASSESSMENT AND PLAN: 1. Status post debridement and irrigation of infected left knee arthroplasty secondary to Methicillin-resistant Staphylococcus aureus. Continue on daptomycin as directed by Dr. Matias Crystal. Orthopedics is following. 2. s/p evacuation of left knee hematoma. Stable. 3. Hypomagnesemia. Will replace the patient's magnesium. 4. Obesity. Aware. 5. Anemia of chronic disease. The patient's hemoglobin and hematocrit are stable. 6. Situational depression. Continue on Lexapro. 7. Constipation. Continue on scheduled laxative therapy. 8. 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 Aware. 9. Disposition. Will plan to discharge the patient to rehab once cleared by the orthopedic surgeon. cc: Sepideh Mi MD MTDD
[2016-12-03 07:31] VITALS: BP 130/49
--- NOTE | 2016-12-03 08:25 | PROGRESS NOTE ---
DATE: 12/03/2016 PRESENT ILLNESS: The patient is status post debridement and irrigation of a methicillin-resistant Staph aureus infected temporary left knee arthroplasty. MEDICATIONS: This is the 6th day of treatment with daptomycin, which is the antibiotic the patient is receiving. I plan to treat for 8 weeks with daptomycin. PHYSICAL EXAMINATION: Vital Signs: Temperature is 98.5 degrees, pulse 89, respirations 20, blood pressure 130/49. General: The patient is obese. She is alert. She can move all of her extremities. Lungs clear to auscultation. Cardiovascular: Regular heart rate. Abdomen soft and nontender. Extremities: The right arm has a PICC in place. The site is not erythematous or draining. The patient's left leg wound has the VAC in place at the level of the knee. LABORATORY DATA AND X-RAY: There is no new lab or x-ray today. ASSESSMENT AND PLAN: I am going to continue daptomycin and treat for a total of 8 weeks. She now has had 24 days of treatment out of the 8 weeks. When I said this was the patient's 6th day of treatment, that has been since she has been in the hospital. Prior to that, she had been receiving daptomycin. COMORBIDITIES: She is elderly. She had more than 1 surgery on her knee. cc: MD Sepideh Canela MD
[2016-12-03] MEDS: LEXAPRO PO SCH (09:38)
[2016-12-03] MEDS: CENTRUM SILVER PO SCH (09:38)
[2016-12-03] MEDS: ICAR-C PO SCH (09:38)
[2016-12-03] MEDS: PERIDEX MT SCH (09:39)
[2016-12-03] MEDS: MIRALAX PO SCH (09:39)
[2016-12-03 09:48] LABS: HEMATOCRIT 26.1 % (37.0-47.0); HEMOGLOBIN 8.4 g/dL (12.0-16.0); MCH 30.4 PG (27-31); MCHC 32.2 g/dL (33-37); MCV 94.6 FL (81-99); MPV 10.1 FL (7.4-10.4); RBC 2.76 XMIL (4.2-5.4)
[2016-12-03 10:03] LABS: MAGNESIUM 1.8 mg/dL (1.5-2.7)
[2016-12-03 10:07] LABS: AGAP 12; BUN 15 mg/dL (8-22); CALCIUM 9.2 mg/dL (8.8-10.2); CHLORIDE 101 mmol/L (98-107); COSMO 284; POTASSIUM 3.3 mmol/L (3.5-5.1); SODIUM 142 mmol/L (136-145); TCO2 29 mmol/L (25-35)
--- NOTE | 2016-12-03 13:06 | DISCHARGE SUMMARY ---
ADMISSION DATE: 11/27/2016 DISCHARGE DATE: 12/03/2016 DISCHARGE DIAGNOSIS: Left knee hematoma, status post Left knee hematoma evacuation, irrigation, debridement with placement of antibiotic beads and placement of wound VAC, as well as the placement of a drain. DISCHARGE MEDICATIONS: See discharge medication list. DISPOSITION: The patient is discharged to rehab. DISCHARGE INSTRUCTIONS: She is instructed to return to see Dr. Muñiz next Thursday and also instructed to return to see Dr. Crystal in the clinic in 4 weeks. She is instructed to continue her IV antibiotics and to continue the use of a wound VAC. We will also have her weightbearing as tolerated while ambulating with her knee immobilizer on, and we will also have her doing range of motion exercises with physical therapy. HOSPITAL COURSE: On the day of admission, patient underwent a left hematoma evacuation and irrigation and debridement. Her postoperative course was unremarkable. At discharge, she is afebrile. Tolerating regular diet, ambulating well with physical therapy. Her wound VAC dressing is intact and her wound VAC is functioning properly. Her hemoglobin is 8.4 and her hematocrit is 26.1 at discharge. She will be discharged to rehab in stable condition with instructions to follow up as described above. Dictated by IAN Rivera for Dhruv Muñiz MD cc: IAN Rivera MD Katherine Takundwa, MD
== END 2016-12-03 16:44 ==
LOC: DIRADM 12:39 → 4N 13:01
PROVIDERS: ADMIT Internal Medicine; ATTEND Orthopaedic Surgery